=== PATIENT | male | born 1955 | race Caucasian/White ===

== ENCOUNTER 2016-09-12 18:02 | Emergency (ER) | payer OTHER ==
[2016-09-12] MEDS ORDERED: DILAUDID 2 MG INJECTION IM STA (18:29)
[2016-09-12] MEDS ORDERED: Phenergan 25 MG INJ IM ONE (18:30)
[2016-09-12] MEDS ORDERED: Phenergan 25 MG INJ ONE (18:36)
[2016-09-12] MEDS ORDERED: Hydromorphone 1 mg/ml Ampule ONE (18:36)
--- NOTE | 2016-09-12 18:36 | ERPHSYRPT ---
- History of Present Illness Time Seen by Provider: 09/12/16 18:25 Source: patient Exam Limitations: clinical condition Patient Subjective Stated Complaint: fell stepping off lawnmower onto asphalt striking right shoulder. Triage Nursing Assessment: ambulated to room per self. holding right arm. skin w/d, color normal. no obvious deformity noted to right shoulder. arm warm , normal color. 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 DENIES ASSOCIATED HEAD, NECK INJURY. Occurred: just prior to arrival Reason for Fall: tripped Injuries/Pain Location: upper extremity, back Loss of Consciousness: no loss of consciousness Quality: throbbing Severity of Pain-Max: severe Severity of Pain-Current: severe Modifying Factors: Improves With: movement Associated Symptoms (Fall): back pain, extremity injury Allergies/Adverse Reactions: nifedipine [From Procardia] Allergy (Verified 09/12/16 18:20) Swelling of Feet Home Medications: Amlodipine Besylate 5 mg [Norvasc 5 mg] 5 mg PO QAM 11/29/13 [History] Glimepiride 2 mg [Amaryl 2 MG] 2 mg PO QAM 11/29/13 [History] HydrALAzine HCL 25 MG TAB [Apresoline 25 MG TABLET] 25 mg PO DAILY [History] Omeprazole 20 MG [Prilosec 20 mg] 20 mg PO QAM 11/29/13 [History] Oxybutynin Chloride Xl 5 mg [Ditropan XL 5 MG] 5 mg PO DAILY 11/29/13 [ History] Alprazolam 0.25 mg [xanAX 0.25 MG] 0.5 mg PO DAILY 08/21/15 [History] Escitalopram Oxalate [Lexapro] 20 mg PO DAILY 08/21/15 [History] Lisinopril 20 mg [Zestril 20 MG] 20 mg PO DAILY 03/16/16 [History] Vitamin B Complex [Super B-50 Complex] 1 each PO DAILY 09/12/16 [History] Hx Tetanus, Diphtheria Vaccination/Date Given: Yes (2013) Hx Influenza Vaccination/Date Given: Yes Hx Pneumococcal Vaccination/Date Given: Yes - Review of Systems Constitutional: No Fever, No Chills Eyes: No Symptoms Ears, Nose, & Throat: No Symptoms Respiratory: No Cough, No Dyspnea Cardiac: No Chest Pain, No Edema, No Syncope Abdominal/Gastrointestinal: No Abdominal Pain, No Nausea, No Vomiting, No Diarrhea Genitourinary Symptoms: No Dysuria Musculoskeletal: Injury, Joint Pain, Joint Swelling, No Back Pain, No Neck Pain Skin: No Rash Neurological: No Symptoms, No Dizziness, No Focal Weakness, No Sensory Changes Psychological: No Symptoms Endocrine: No Symptoms All Other Systems: Reviewed and Negative - Past Medical History Pertinent Past Medical History: Yes Neurological History: No Pertinent History ENT History: Cataracts Cardiac History: Congestive Heart Failure, Coronary Artery Disease, Hypertension , Myocardial Infarction (NM) Respiratory History: Asthma, CHF, Pulmonary Embolism, Sleep Apnea Endocrine Medical History: Diabetes Type II Musculoskeletal History: No Pertinent History GI Medical History: GERD History: No Pertinent History Psycho-Social History: Anxiety, Depression Male Reproductive Disorders: No Pertinent History Other Medical History: BRADYCARDIA, states has not had cataract surgery - Past Surgical History Past Surgical History: Yes Neuro Surgical History: No Pertinent History Cardiac: Cardiac Catheterization Respiratory: No Pertinent History Gastrointestinal: Hernia Repair Genitourinary: No Pertinent History Musculoskeletal: Other Male Surgical History: No Pertinent History Other Surgical History: RT SHOULDER INJURY THAT CAUSES PT PAIN, left shoulder rotator cuff repair,ruptured,states 5 cardiac cath - Social History Smoking Status: Never smoker Exposure to second hand smoke: No Alcohol Use: None Drug Use: none Patient Lives Alone: No Significant Family History: cancer - Nursing Vital Signs Nursing Vital Signs: Initial Vital Signs Temperature 98 F Temperature Source Oral Pulse Rate 95 Respiratory Rate 18 Blood Pressure [Left Arm] 104/64 Pain Intensity 0 - Thermal Coma Score Best Eye Response (Thermal): (4) open spontaneously Best Verbal Response (Thermal): (5) oriented Best Motor Response (Saul): (6) obeys commands Thermal Total: 15 - Physical Exam General Appearance: no apparent distress, alert Head Injury: no evidence of injury Eye Exam: PERRL/EOMI ENT Exam: airway nml Neck Exam: supple, normal inspection, other (NONTENDER), No tenderness Respiratory/Chest Exam: normal breath sounds, No chest tenderness, No respiratory distress Cardiovascular Exam: normal heart sounds, regular rate/rhythm Gastrointestinal Exam: soft, No tenderness, No distention, No guarding, No ecchymosis Back Exam: normal inspection, point tenderness (T-4 TO T-10. NO ECCHYMOSIS OR SWELLING), No vertebral tenderness Extremity Exam: pelvis stable, pain with movement, swelling (RIGHT HUMERAL HEAD , MARKED LIMITED RANGE OF MOTION, NO CREPITUS OR ECCHYMOSIS, RIGHT RADIAL PULSE) , tenderness, No deformities Peripheral Pulses: carotid (R): 2+, carotid (L): 2+, femoral (R): 2+, femoral (L ): 2+, dorsalis-pedis (R): 2+, dorsalis-pedis (L): 2+ Neurologic Exam: alert, oriented x 3, cooperative, sensation nml, No motor deficits Skin Exam: normal color, warm, dry SpO2 Interpretation: normal SpO2: 95 - Radiology Exams Right Shoulder X-ray Interpretation: Interpreted by me, Negative, No Fracture (NO DISLOCATION) Right Humerus X-ray Interpretation: Interpreted by me, Negative, No Fracture - CT Exams Thoracic Spine CT Interpretation: Tele-radiologist Report (NO FRACTURE, OR TRAUMATIC DISLOCATION, DEGENERATIVE DISC DISEASE, WITH MILD CENTRA CANAL STENOSIS) Ordered Tests: Active Orders 24 hr Category Date Time Status Sling Application STAT Care 09/12/16 19:39 Ordered HUMERUS Stat Exams 09/12/16 18:34 Taken SHOULDER Stat Exams 09/12/16 18:33 Taken THORACIC SPINE W/O CONTRAST [CT] Stat Exams 09/12/16 18:35 Taken Medication Summary Discontinued Medications Generic Name Dose Route Start Last Admin Trade Name Freq PRN Reason Stop Dose Admin Hydromorphone HCl 2 mg 09/12/16 18:29 09/12/16 18:39 Dilaudid 2 Mg Injection IM 09/12/16 18:30 2 mg STAT STA Administration Hydromorphone HCl Confirm 09/12/16 18:36 Hydromorphone 1 Mg/Ml Ampule Administered 09/12/16 18:37 Dose 2 mg .ROUTE .STK-MED ONE Promethazine HCl 12.5 mg 09/12/16 18:30 09/12/16 18:39 Phenergan 25 Mg Inj IM 09/12/16 18:31 12.5 mg STAT ONE Administration Promethazine HCl Confirm 09/12/16 18:36 Phenergan 25 Mg Inj Administered 09/12/16 18:37 Dose 25 mg .ROUTE .STK-MED ONE - Progress Progress: improved Progress Note: 09/12/16 19:46 PATIENT GIVEN DILAUDID 2MG/PHENERGAN 12.5MG IM, PROVIDED WITH ARM SLING Counseled pt/family regarding: diagnosis, need for follow-up, rad results - Departure Time of Disposition: 20:00 Departure Disposition: Home Clinical Impression: CONTUSION/STRAIN RIGHT SHOULDER Condition: Stable Critical Care Time: No Additional Instructions: WEAR SHOULDER SLING FOR COMFORT FOR 5 DAYS THEN REMOVE. APPLY ICE OVER SHOULDER EVERY 4 HOURS, 30 MINUTES FOR 48 HOURS. NORCO 10/325 EVERY 4 HOURS NEEDED FOR PAIN. CONSULT YOUR FAMILY PHYSICIAN FOR EVALUATION IN 1 WEEK FOR FOLLOWUP. Prescriptions: Hydrocodone Bit/Acetaminophen [[place] 10-325 Tablet] 1 each PO Q4H PRN PRN #20 tablet PRN Reason: Pain
[2016-09-12 19:45] VITALS: O2SAT 95
[2016-09-12 19:58] VITALS: BP 110/62; PULSE 88
--- NOTE | 2016-09-13 08:46 | XRAY ---
Indication: Mid back pain following fall. Multiple contiguous images obtained through the thoracic spine. Sagittal and coronal reformatted images obtained. Comparison: None Axial images are negative for acute fracture, suspicious bony lesions, or spinal canal stenosis. There are multilevel flowing endplate osteophytes. Sagittal and coronal reformatted images demonstrates normal alignment. No acute compression fracture or subluxation. Visualized soft tissues demonstrates mild bilateral dependent atelectasis and right hilar calcified nodes. Impression: 1. Negative for acute fracture. 2. Multilevel degenerative flowing osteophytes. Comment: Preliminary interpretation was made by [facility]. No discrepancy. CT DI 133.72
--- NOTE | 2016-09-13 08:48 | XRAY ---
Indication: Pain following fall. Comparison: April 11, 2013. 3 views of the right shoulder remains intact with progressive worsening moderate AC degenerative hypertrophy and spurring. No new/acute bony, articular, or soft tissue abnormalities.
--- NOTE | 2016-09-13 08:50 | XRAY ---
Indication: Pain following fall. Comparison: None. 2 views of the right humerus demonstrates moderate AC degenerative hypertrophy/spurring and lateral epicondyle spurring. No other bony, articular, or soft tissue abnormalities.
== END 2016-09-12 20:06 | disposition home or self-care (01) ==
LOC: ED 18:02
DX: S40.011A Contusion of right shoulder, initial encounter (principal); S43.401A Unspecified sprain of right shoulder joint, initial encounter; W01.0XXA Fall on same level from slipping, tripping and stumbling without subsequent striking against object, initial encounter; Y93.H9 Activity, other involving exterior property and land maintenance, building and construction
CPT/HCPCS: 72128; 73030; 73060; 96372; 99284; J1170; J2550

== ENCOUNTER 2020-02-08 14:52 | Observation (INO) | payer MEDICARE ==
[2020-02-08] MEDS ORDERED: REMDESIVIR 200 MG in Sodium Chloride 0.9% 250 ML 250 ML IV ONE (16:30)
[2020-02-08 16:58] LABS: Hematocrit 46.3 % (42-50); Hemoglobin 15.2 gm/dl (12.5-18.0); Mean Cell Volume 92.2 fl (78-100); Mean Corpuscular Hemoglobin 30.3 pg (26-32); Mean Corpuscular Hgb Concent. 32.8 g/dl (32-36); Mean Platelet Volume 10.7 fl (7.5-11.0); Platelet Count 149 K/mm3 (150-450); Red Blood Count 5.02 M/mm3 (4.1-5.6); Red Cell Distribution Width 14.1 % (11.5-14.0); White Blood Count 4.6 K/mm3 (4.0-10.5)
[2020-02-08 17:27] LABS: Calcium 9.1 mg/dL (8.4-10.2); Creatinine 1 1.3 mg/dL (0.66-1.25); EST GLOMERULAR FILTRATION RATE 59.3 ML/MIN; Potassium 4.6 mmol/L (3.5-5.1)
[2020-02-08] MEDS: Decadron 4 MG INJ IV SCH (17:48)
[2020-02-08] MEDS: Zithromax 500 MG/ 250 ML NaCl Premix 500 MG/250 ML IVPB IV SCH (17:48)
[2020-02-08] MEDS: ENOXAPARIN SODIUM SQ SCH (18:12)
[2020-02-08] MEDS: Sodium Chloride 0.9% 1000 ML 1,000 ML IV SCH (18:23)
[2020-02-08] MEDS ORDERED: MOTRIN 600 MG PO PRN (19:44)
[2020-02-08] MEDS ORDERED: TYLENOL 325 MG PO PRN (19:49)
[2020-02-08 20:23] LABS: Appearance CLEAR (CLEAR); Bilirubin NEGATIVE (NEGATIVE); Blood NEGATIVE Ery/ul (0-5); Glucose NEGATIVE (NEGATIVE); Ketones NEGATIVE (NEGATIVE); Leukocyte Esterase NEGATIVE (NEGATIVE); Mucus SLIGHT /HPF (NEGATIVE); Nitrite NEGATIVE (NEGATIVE); Protein,Urine Dip NEGATIVE (Negative); Specific Gravity 1.013 (1.005-1.025); Urobilinogen NEGATIVE mg/dL (0-1)
[2020-02-08] MEDS: Singulair 10 MG PO SCH (21:26)
[2020-02-08] MEDS: Zestril 20 MG PO SCH (21:26)
[2020-02-08] MEDS: Ditropan XL 5 MG PO SCH (21:26)
[2020-02-08] MEDS: HUMALOG SQ PRN (21:26)
[2020-02-08] MEDS: Apresoline 25 MG TABLET PO SCH (21:28)
[2020-02-09] MEDS: ENOXAPARIN SODIUM SQ SCH ×2 (05:07→17:31)
[2020-02-09 05:11] LABS: Hematocrit 45.5 % (42-50); Hemoglobin 14.9 gm/dl (12.5-18.0); Mean Cell Volume 92.3 fl (78-100); Mean Corpuscular Hemoglobin 30.2 pg (26-32); Mean Corpuscular Hgb Concent. 32.7 g/dl (32-36); Mean Platelet Volume 10.6 fl (7.5-11.0); Platelet Count 143 K/mm3 (150-450); Red Blood Count 4.93 M/mm3 (4.1-5.6); Red Cell Distribution Width 14.1 % (11.5-14.0); White Blood Count 2.5 K/mm3 (4.0-10.5)
[2020-02-09] MEDS ORDERED: xanAX 0.25 MG PO PRN (07:15)
[2020-02-09] MEDS ORDERED: xanAX 0.5 MG PO PRN (07:19)
[2020-02-09] MEDS: Amaryl 2 MG PO SCH (08:36)
[2020-02-09] MEDS: HUMALOG SQ PRN ×4 (08:37→22:18)
--- NOTE | 2020-02-09 08:44 | PCM.HP ---
History of Present Illness - Chief Complaint Chief Complaint: SOB, + COVID Date: 02/09/20 History of Present Illness: is a 64 year old male. presented to respiratory clinic with 6 days of cough, sob, diarrhea. Pt. 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 - Review of Systems Constitutional: Fever, Chills Eyes: No Symptoms Ears, Nose, & Throat: No Symptoms Respiratory: Cough, Short Of Breath Cardiac: No Chest Pain, No Edema, No Syncope Abdominal/Gastrointestinal: Diarrhea, No Abdominal Pain, No Nausea, No Vomiting, No Hematochezia, No Melena Genitourinary Symptoms: No Dysuria Musculoskeletal: Arthralgias Skin: No Rash Neurological: No Dizziness, No Focal Weakness, No Sensory Changes Psychological: No Symptoms Endocrine: No Symptoms Hematologic/Lymphatic: No Symptoms Immunological/Allergic: No Symptoms Medications & Allergies Home Medications: Home Medication List Glimepiride 2 mg [Amaryl 2 MG] 2 mg PO QAM 11/29/13 [History Confirmed 02/08/20] HydrALAzine HCL 25 MG TAB [Apresoline 25 MG TABLET] 12.5 mg PO BID 11/29/13 [History Confirmed 02/08/20] Omeprazole 20 MG [Prilosec 20 mg] 20 mg PO QAM 11/29/13 [History Confirmed 02/08/20] Oxybutynin Chloride Xl 5 mg [Ditropan XL 5 MG] 5 mg PO BID 11/29/13 [History Confirmed 02/08/20] Alprazolam 0.25 mg [xanAX 0.25 MG] 0.5 mg PO DAILY PRN 08/21/15 [History Confirmed 02/08/20] Escitalopram Oxalate [Lexapro] 20 mg PO DAILY 08/21/15 [History Confirmed 02/08/20] Lisinopril 20 mg [Zestril 20 MG] 20 mg PO BID 03/16/16 [History Confirmed 02/08/20] Vitamin B Complex [Super B-50 Complex] 1 each PO DAILY 09/12/16 [History Confirmed 02/08/20] Montelukast Sodium 10 mg [Singulair 10 MG] 10 mg PO QPM 02/08/20 [History Confirmed 02/08/20] Allergies/Adverse Reactions: Allergies Allergy/AdvReac Type Severity Reaction Status Date / Time nifedipine [From Procardia] Allergy Swelling Verified 09/12/16 18:20 of Feet - Past Medical History Past Medical History: Yes Neurological History: Migraines, Peripheral Neuropathy ENT History: Cataracts Cardiac History: Other Respiratory History: Asthma, COPD, Sleep Apnea Endocrine Medical History: Diabetes Type II Musculoskelatal History: Osteoarthritis GI Medical History: GERD History: No Pertinent History Pyscho-Social History: Anxiety, Depression Male Reproductive Disorders: No Pertinent History Comment: HAS 3 CORONARY ARTERY BLOCKAGES WITH MEDS ONLY TO TX THUS FAR - Past Surgical History Past Surgical History: Yes Neuro Surgical History: No Pertinent History Cardiac History: Cardiac Catheterization Respiratory Surgery: No Pertinent History GI Surgical History: Hernia Repair Genitourinary Surgical Hx: No Pertinent History Musculskeletal Surgical Hx: Other Male Surgical History: No Pertinent History Other Surgical History: RT SHOULDER INJURY THAT CAUSES PT PAIN, left shoulder rotator cuff repair,ruptured,states 5 cardiac cath - Social History Smoking Status: Never smoker Exposure to second hand smoke: No Alcohol: None Drug Use: none Significant Family History: cancer - Physical Exam Vital Signs: Vital Signs - 24 hr Temp Pulse Resp BP Pulse Ox 02/09/20 08:05 96 02/09/20 08:00 97.4 F 56 L 15 137/69 97 02/09/20 07:00 13 02/09/20 06:00 61 16 96 02/09/20 05:00 13 02/09/20 04:00 97.5 F 53 L 16 134/83 98 02/09/20 03:00 21 02/09/20 02:00 53 L 21 97 02/09/20 01:00 19 02/09/20 00:00 97.6 F 57 L 19 108/61 95 02/08/20 23:00 19 02/08/20 22:00 74 18 95 02/08/20 21:00 20 02/08/20 20:00 101.4 F 82 15 130/87 94 L 02/08/20 19:00 16 02/08/20 18:00 101.6 F 82 14 141/75 96 02/08/20 17:00 14 02/08/20 16:45 101.7 F 81 12 153/74 97 02/08/20 16:15 99 02/08/20 16:05 93 L Oxygen-Last 24 hours Oxygen Flowrate (L/min)-RT 2 Oxygen Flowrate (L/min)-RT 2 Oxygen Flowrate (L/min)-RT 2 Oxygen Flowrate (L/min)-RT 2 Oxygen Flowrate (L/min)-RT 2 Oxygen Flowrate (L/min)-RT 2 Oxygen Flowrate (L/min)-RT 2 General Appearance: no apparent distress Neurologic Exam: alert, oriented x 3, cooperative Eye Exam: eyes nml inspection Ears, Nose, Throat Exam: normal ENT inspection Neck Exam: normal inspection, non-tender, supple, full range of motion, No meningismus Respiratory Exam: normal breath sounds, lungs clear, No chest tenderness Cardiovascular Exam: regular rate/rhythm, normal heart sounds, normal peripheral pulses Gastrointestinal/Abdomen Exam: soft, normal bowel sounds, No tenderness, No distention, No mass, No guarding Rectal Exam: deferred Back Exam: normal inspection Extremity Exam: normal inspection Skin Exam: normal color, warm, dry, No rash, No petechiae, No jaundice Results - Labs Lab/Micro Results: Lab Results-Last 24 Hours 02/08/20 02/08/20 02/08/20 Range/Units 16:48 16:48 16:48 WBC 4.6 (4.0-10.5) K/mm3 RBC 5.02 (4.1-5.6) M/mm3 Hgb 15.2 (12.5-18.0) gm/dl Hct 46.3 (42-50) % MCV 92.2 (78-100) fl MCH 30.3 (26-32) pg MCHC 32.8 (32-36) g/dl RDW 14.1 H (11.5-14.0) % Plt Count 149 L (150-450) K/mm3 MPV 10.7 (7.5-11.0) fl D-Dimer (215-500) ng/mL Sodium 133 L (137-145) mmol/L Potassium 4.6 (3.5-5.1) mmol/L Chloride 99 (98-107) mmol/L Carbon Dioxide 26 (22-30) mmol/L Anion Gap 12.0 (5-15) MEQ/L BUN 34 H (9-20) mg/dL Creatinine 1.30 H (0.66-1.25) mg/dL Estimated GFR 59.3 ML/MIN Glucose 131 H (74-106) mg/dL POC Glucometer (74 to 106) mg/dL Hemoglobin A1c 5.93 (4.5-6.0) % Calcium 9.1 (8.4-10.2) mg/dL Urine Color (YELLOW) Urine Appearance (CLEAR) Urine pH (5-6) Ur Specific [place] (1.005-1.025) Urine Protein (Negative) Urine Ketones (NEGATIVE) Urine Blood (0-5) Yousuf/ul Urine Nitrite (NEGATIVE) Urine Bilirubin (NEGATIVE) Urine Urobilinogen (0-1) mg/dL Ur Leukocyte Esterase (NEGATIVE) Urine WBC (Auto) (0-5) /HPF Urine RBC (Auto) (0-2) /HPF U Epithel Cells (Auto) (FEW) /HPF Urine Bacteria (Auto) (NEGATIVE) /HPF Urine Mucus (Auto) (NEGATIVE) /HPF Urine Culture Reflexed (NO) Urine Glucose (NEGATIVE) mg/dL 02/08/20 02/08/20 02/08/20 Range/Units 17:33 17:58 20:20 WBC (4.0-10.5) K/mm3 RBC (4.1-5.6) M/mm3 Hgb (12.5-18.0) gm/dl Hct (42-50) % MCV (78-100) fl MCH (26-32) pg MCHC (32-36) g/dl RDW (11.5-14.0) % Plt Count (150-450) K/mm3 MPV (7.5-11.0) fl D-Dimer 525 H* (215-500) ng/mL Sodium (137-145) mmol/L Potassium (3.5-5.1) mmol/L Chloride (98-107) mmol/L Carbon Dioxide (22-30) mmol/L Anion Gap (5-15) MEQ/L BUN (9-20) mg/dL Creatinine (0.66-1.25) mg/dL Estimated GFR ML/MIN Glucose (74-106) mg/dL POC Glucometer 115 H (74 to 106) mg/dL Hemoglobin A1c (4.5-6.0) % Calcium (8.4-10.2) mg/dL Urine Color YELLOW (YELLOW) Urine Appearance CLEAR (CLEAR) Urine pH 5.0 (5-6) Ur Specific [place] 1.013 (1.005-1.025) Urine Protein NEGATIVE (Negative) Urine Ketones NEGATIVE (NEGATIVE) Urine Blood NEGATIVE (0-5) Yousuf/ul Urine Nitrite NEGATIVE (NEGATIVE) Urine Bilirubin NEGATIVE (NEGATIVE) Urine Urobilinogen NEGATIVE (0-1) mg/dL Ur Leukocyte Esterase NEGATIVE (NEGATIVE) Urine WBC (Auto) NONE (0-5) /HPF Urine RBC (Auto) NONE (0-2) /HPF U Epithel Cells (Auto) NONE (FEW) /HPF Urine Bacteria (Auto) NONE (NEGATIVE) /HPF Urine Mucus (Auto) SLIGHT (NEGATIVE) /HPF Urine Culture Reflexed NO (NO) Urine Glucose NEGATIVE (NEGATIVE) mg/dL 02/08/20 02/09/20 Range/Units 21:17 04:45 WBC 2.5 L (4.0-10.5) K/mm3 RBC 4.93 (4.1-5.6) M/mm3 Hgb 14.9 (12.5-18.0) gm/dl Hct 45.5 (42-50) % MCV 92.3 (78-100) fl MCH 30.2 (26-32) pg MCHC 32.7 (32-36) g/dl RDW 14.1 H (11.5-14.0) % Plt Count 143 L (150-450) K/mm3 MPV 10.6 (7.5-11.0) fl D-Dimer (215-500) ng/mL Sodium (137-145) mmol/L Potassium (3.5-5.1) mmol/L Chloride (98-107) mmol/L Carbon Dioxide (22-30) mmol/L Anion Gap (5-15) MEQ/L BUN (9-20) mg/dL Creatinine (0.66-1.25) mg/dL Estimated GFR ML/MIN Glucose (74-106) mg/dL POC Glucometer 234 H (74 to 106) mg/dL Hemoglobin A1c (4.5-6.0) % Calcium (8.4-10.2) mg/dL Urine Color (YELLOW) Urine Appearance (CLEAR) Urine pH (5-6) Ur Specific [place] (1.005-1.025) Urine Protein (Negative) Urine Ketones (NEGATIVE) Urine Blood (0-5) Yousuf/ul Urine Nitrite (NEGATIVE) Urine Bilirubin (NEGATIVE) Urine Urobilinogen (0-1) mg/dL Ur Leukocyte Esterase (NEGATIVE) Urine WBC (Auto) (0-5) /HPF Urine RBC (Auto) (0-2) /HPF U Epithel Cells (Auto) (FEW) /HPF Urine Bacteria (Auto) (NEGATIVE) /HPF Urine Mucus (Auto) (NEGATIVE) /HPF Urine Culture Reflexed (NO) Urine Glucose (NEGATIVE) mg/dL - Radiology Impressions Radiology Exams & Impressions: Radiology Procedures Category Date Time Status CHEST 1 VIEW (PORTABLE) DAILY Exams 02/09/20 08:00 Taken CHEST 1 VIEW (PORTABLE) DAILY Exams 02/10/20 08:00 Ordered CHEST 1 VIEW (PORTABLE) DAILY Exams 02/11/20 08:00 Ordered - Other Procedures and Tests Respiratory Therapy 02/08/20 16:32 Incentive Spirometry UD Oxygen Nasal Cannula 2 lpm Assessment/Plan (1) SARS-associated coronavirus infection Current Visit: Yes Status: Acute Assessment & Plan: Pt. is now on full dose lovenox, remdesivir, and steroids- will continue these Code(s): B97.21 - SARS-ASSOCIATED CORONAVIRUS CAUSING DISEASES CLASSD ELSWHR (2) Pneumonia Current Visit: Yes Status: Acute Assessment & Plan: started on iv antibiotics rocephin and azithromycin, also low volume oxygen Code(s): J18.9 - PNEUMONIA, UNSPECIFIED ORGANISM (3) Type 2 diabetes mellitus Current Visit: No Status: Acute Assessment & Plan: continue home medications and moniter blood sugar with sliding scale insulin
--- NOTE | 2020-02-09 09:01 | XRAY ---
Indication: Short of breath. Positive Covid 19. Comparison: One day earlier. Portable chest unchanged again demonstrating subtle patchy left mid and lower lung infiltrate/atelectasis. Remaining heart and right lung unremarkable. No new cardiopulmonary abnormalities.
[2020-02-09] MEDS: Apresoline 25 MG TABLET PO SCH ×2 (09:48→21:34)
[2020-02-09] MEDS: Protonix 40MG Tablet PO SCH (09:49)
[2020-02-09] MEDS: Lexapro 10 MG PO SCH (09:49)
[2020-02-09] MEDS: Zestril 20 MG PO SCH ×2 (09:49→21:34)
[2020-02-09] MEDS: Ditropan XL 5 MG PO SCH ×2 (09:49→21:34)
[2020-02-09] MEDS: Decadron 4 MG INJ IV SCH (09:50)
[2020-02-09] MEDS: VITA-BEE WITH C PO SCH (09:51)
[2020-02-09] MEDS ORDERED: NON-FORMULARY ITEM (Omeprazole 20 Mg [Prilosec 20 Mg] 20 MG) PO SCH (10:00)
[2020-02-09] MEDS ORDERED: VITAMIN B COMPLEX PO SCH (10:00)
[2020-02-09] MEDS ORDERED: FLUZONE QUAD 2020-2021 SYRINGE IM ONE (10:00)
[2020-02-09 12:28] LABS: ANION GAP 9.8 MEQ/L (5-15); BLOOD UREA NITROGEN 32 mg/dL (9-20); CHLORIDE 101 mmol/L (98-107); Calcium 8.7 mg/dL (8.4-10.2); Carbon Dioxide 25 mmol/L (22-30); Creatinine 1 1.12 mg/dL (0.66-1.25); EST GLOMERULAR FILTRATION RATE > 60.0 ML/MIN; Glucose 246 mg/dL (74-106); Potassium 4.6 mmol/L (3.5-5.1); SODIUM 131 mmol/L (137-145)
[2020-02-09] MEDS: Sodium Chloride 0.9% 1000 ML 1,000 ML IV SCH (14:36)
[2020-02-09] MEDS: REMDESIVIR 100 MG in Sodium Chloride 0.9% 100 ML IVPB 100 ML IV SCH (16:40)
[2020-02-09] MEDS: ROCEPHIN 1 Gm-D5w 50 ml Bag** 1 G/50 ML IVPB IV SCH (17:47)
[2020-02-09] MEDS: Zithromax 500 MG/ 250 ML NaCl Premix 500 MG/250 ML IVPB IV SCH (18:51)
[2020-02-09] MEDS: Singulair 10 MG PO SCH (21:34)
[2020-02-10 04:58] LABS: Hematocrit 43.4 % (42-50); Hemoglobin 14.1 gm/dl (12.5-18.0); Mean Cell Volume 92.3 fl (78-100); Mean Corpuscular Hgb Concent. 32.5 g/dl (32-36); Mean Platelet Volume 11.2 fl (7.5-11.0); Platelet Count 151 K/mm3 (150-450); Red Cell Distribution Width 14.1 % (11.5-14.0); White Blood Count 7.4 K/mm3 (4.0-10.5)
[2020-02-10 05:17] LABS: INR 1.25 (0.8-3.0); PROTIME 14.1 SECONDS (8.83-12.87)
[2020-02-10 05:25] LABS: ALBUMIN 3.3 g/dL (3.5-5.0); ALKALINE PHOSPHATASE 46 U/L (38-126); ANION GAP 7.9 MEQ/L (5-15); BLOOD UREA NITROGEN 28 mg/dL (9-20); CHLORIDE 106 mmol/L (98-107); Calcium 8.6 mg/dL (8.4-10.2); Carbon Dioxide 26 mmol/L (22-30); Creatinine 1 0.92 mg/dL (0.66-1.25); EST GLOMERULAR FILTRATION RATE > 60.0 ML/MIN; Glucose 208 mg/dL (74-106); SGOT/AST 61 U/L (17-59); SGPT/ALT 32 U/L (0-50); SODIUM 135 mmol/L (137-145); Total Protein 6.1 g/dL (6.3-8.2)
[2020-02-10] MEDS: ENOXAPARIN SODIUM SQ SCH ×2 (05:48→19:46)
[2020-02-10] MEDS: HUMALOG SQ PRN ×2 (07:28→12:58)
[2020-02-10] MEDS: Ditropan XL 5 MG PO SCH (08:15)
[2020-02-10] MEDS: Amaryl 2 MG PO SCH (08:15)
[2020-02-10] MEDS: Protonix 40MG Tablet PO SCH (08:15)
[2020-02-10] MEDS: Lexapro 10 MG PO SCH (08:15)
--- NOTE | 2020-02-10 08:36 | XRAY ---
Indication: Short of breath. Positive Covid 19. Comparison: One day earlier Portable apical lordotic chest less inflated accentuating cardiopulmonary structures. Left costophrenic angle not included. Otherwise grossly stable patchy left mid to lower lung infiltrate/atelectasis. Remaining heart and right lung unremarkable.
[2020-02-10] MEDS: Apresoline 25 MG TABLET PO SCH (09:42)
[2020-02-10] MEDS: Zestril 20 MG PO SCH (09:42)
[2020-02-10] MEDS: Decadron 4 MG INJ IV SCH (09:42)
[2020-02-10] MEDS: ROCEPHIN 1 Gm-D5w 50 ml Bag** 1 G/50 ML IVPB IV SCH (09:43)
[2020-02-10] MEDS: VITA-BEE WITH C PO SCH (09:43)
[2020-02-10] MEDS: Sodium Chloride 0.9% 1000 ML 1,000 ML IV SCH (12:20)
[2020-02-10] MEDS: REMDESIVIR 100 MG in Sodium Chloride 0.9% 100 ML IVPB 100 ML IV SCH (16:35)
[2020-02-10 17:10] VITALS: BP 138/69
[2020-02-10 18:18] VITALS: PULSE 94; O2SAT 90
[2020-02-10] MEDS: Zithromax 500 MG/ 250 ML NaCl Premix 500 MG/250 ML IVPB IV SCH (19:47)
== END 2020-02-10 19:20 | disposition home or self-care (01) ==
LOC: MED SURG 15:35
PROVIDERS: ADMIT Family Medicine; ATTEND Family Medicine
DX: U07.1 COVID-19 (principal); J18.9 Pneumonia, unspecified organism; R19.7 Diarrhea, unspecified; G47.30 Sleep apnea, unspecified; E11.9 Type 2 diabetes mellitus without complications; J44.9 Chronic obstructive pulmonary disease, unspecified; Z79.899 Other long term (current) drug therapy
CPT/HCPCS: 36415; 71045; 80048; 80053; 81001; 82962; 83036; 85027; 85379; 85610; 93268; 94760; 94762; G0378; J0456; J0696; J1100; J1650; J1817; A9270-GY

== ENCOUNTER 2020-09-21 19:33 | Observation (INO) | payer MEDICARE ==
[2020-09-21 19:51] LABS: Absolute Neutrophil Ct (ANC) 5.84 (1.4-6.9); BASOPHIL % 0.4 % (0.0-0.4); Basophil (Absolute #) 0.04 (0-0.4); Eosinophil % 6.9 % (0.00-5.0); Eosinophil (Absolute #) 0.72 (0-0.5); Hematocrit 42.3 % (42-50); Hemoglobin 13.4 gm/dl (12.5-18.0); Lymphocyte (Absolute #) 2.78 (1.0-4.6); Lymphocytes % 26.7 % (24.0-44.0); Mean Corpuscular Hemoglobin 29.8 pg (26-32); Mean Corpuscular Hgb Concent. 31.7 g/dl (32-36); Mean Platelet Volume 9.7 fl (7.5-11.0); Monocyte (Absolute #) 1.02 (0.0-1.3); Monocytes % 9.8 % (0.0-12.0); Neutrophil % 56.2 % (36.0-66.0); Platelet Count 276 K/mm3 (150-450); Red Cell Distribution Width 13.7 % (11.5-14.0); White Blood Count 10.4 K/mm3 (4.0-10.5)
[2020-09-21 20:03] LABS: ALBUMIN 4.2 g/dL (3.5-5.0); ALKALINE PHOSPHATASE 69 U/L (38-126); BLOOD UREA NITROGEN 26 mg/dL (9-20); CHLORIDE 103 mmol/L (98-107); Calcium 9.8 mg/dL (8.4-10.2); Carbon Dioxide 29 mmol/L (22-30); Creatinine 1 1.17 mg/dL (0.66-1.25); EST GLOMERULAR FILTRATION RATE > 60.0 ML/MIN; Glucose 126 mg/dL (74-106); Potassium 4.3 mmol/L (3.5-5.1); SGOT/AST 51 U/L (17-59); SGPT/ALT 24 U/L (0-50); SODIUM 138 mmol/L (137-145); Total Protein 6.8 g/dL (6.3-8.2)
[2020-09-21 21:14] LABS: Appearance SLIGHTLY CLOUDY (CLEAR); Bilirubin NEGATIVE (NEGATIVE); Blood NEGATIVE Ery/ul (0-5); Glucose NEGATIVE (NEGATIVE); Ketones NEGATIVE (NEGATIVE); Leukocyte Esterase NEGATIVE (NEGATIVE); Nitrite NEGATIVE (NEGATIVE); Protein,Urine Dip NEGATIVE (Negative); Specific Gravity 1.018 (1.005-1.025); Urobilinogen NEGATIVE mg/dL (0-1); WBC 0-2 /HPF (0-5)
--- NOTE | 2020-09-21 21:17 | ERPHSYRPT ---
- History of Present Illness Time Seen by Provider: 09/21/20 19:55 Historian: patient Exam Limitations: no limitations Patient Subjective Stated Complaint: pt states that "I have been having chest pain for the past couple weeks. Today just got worse." Triage Nursing Assessment: pt ambulated into the er; pt is axo x4; c/o chest pain; pt states 7/10 pain to chest and left side of neck; pt states that he has had chest pain for the past couple weeks; pt states that he has appointment saturday with dance teacher; pt states that he was started on new cholesterol medication and thinks it is making him worse; pt states that he was on a heart monitor for 24 hours last week for possible placement of pacemaker; pt states he took 3 nitro prior to coming in with no relief; pt states that pain is radiating from chest to neck; pt states that he has more pressure than pain; apical pulse of 78, clear heart tone; no edema present; strong radial pulses and pedal pulses; clear lung sounds in all lobes; hypertensive; pt states he has pain to left leg; pt states that 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 Patient states he has been experiencing intermittent chest pain for approximately 2 weeks. Patient feels symptoms are getting worse. Patient states he had a cardiac cath approximately 1 week ago. Patient was advised that he has a small vessel that is about 70% occluded however it is not a candidate for stenting. Chest pain rated 7 out of 10 radiates to his left neck. Patient states he recently had a visit with his dance teacher. Patient was started on a new cholesterol medication. Patient feels a cholesterol may be worsening his symptoms. Patient had a rn cardiac last week. Patient is being worked up for bradycardia. Patient took 3 nitroglycerin sublingual prior to arrival. This helped the symptoms. Patient currently feels better. Patient advises he has a history of PE. Currently not anticoagulated. No active chest pain at this time. at bedside. They voiced no other complaints at this time. Timing/Duration: today Activities at Onset: none Quality: aching Location: substernal Chest Pain Radiation: neck Severity of Pain-Max: moderate Severity of Pain-Current: mild Associated Symptoms: shortness of breath Prior Chest Pain/Cardiac Workup: cardiac cath Nitro Today/Relief: 0.4 mg x 3 Aspirin Treatment Today: no aspirin today Allergies/Adverse Reactions: nifedipine [From Procardia] Allergy (Verified 09/21/20 19:47) Swelling of Feet Home Medications: Glimepiride 2 mg [Amaryl 2 MG] 2 mg PO QAM 11/29/13 [History] HydrALAzine HCL 25 MG TAB [Apresoline 25 MG TABLET] 12.5 mg PO BID 11/29/13 [History] Omeprazole 20 MG [Prilosec 20 mg] 20 mg PO QAM 11/29/13 [History] Oxybutynin Chloride Xl 5 mg [Ditropan XL 5 MG] 5 mg PO BID 11/29/13 [History] ALPRAZolam 0.25 MG [xanAX 0.25 MG] 0.5 mg PO DAILY PRN 08/21/15 [History] Escitalopram Oxalate [Lexapro] 20 mg PO DAILY 08/21/15 [History] Lisinopril 20 mg [Zestril 20 MG] 20 mg PO BID 03/16/16 [History] Vitamin B Complex [Super B-50 Complex] 1 each PO DAILY 09/12/16 [History] Montelukast Sodium 10 mg [Singulair 10 MG] 10 mg PO QPM 02/08/20 [History] Hx Tetanus, Diphtheria Vaccination/Date Given: Yes (2013) Hx Influenza Vaccination/Date Given: Yes Hx Pneumococcal Vaccination/Date Given: Yes Travel Risk - International Travel Have you traveled outside of the country in past 3 weeks: No - Coronavirus Screening Are you exhibiting any of the following symptoms?: No Close contact with a COVID-19 positive Pt in past 14-21 Days: No - Vaccine Status Have you recieved a Covid-19 vaccination: No - Review of Systems Constitutional: No Symptoms, No Fever, No Chills Eyes: No Symptoms Ears, Nose, & Throat: No Symptoms Respiratory: No Symptoms, No Cough, No Dyspnea Cardiac: No Symptoms, No Chest Pain, No Edema, No Syncope Abdominal/Gastrointestinal: No Symptoms, No Abdominal Pain, No Nausea, No Vomiting, No Diarrhea Genitourinary Symptoms: No Symptoms, No Dysuria Musculoskeletal: No Symptoms, No Back Pain, No Neck Pain Skin: No Symptoms, No Rash Neurological: No Symptoms, No Dizziness, No Focal Weakness, No Sensory Changes Psychological: No Symptoms Endocrine: No Symptoms Hematologic/Lymphatic: No Symptoms Immunological/Allergic: No Symptoms All Other Systems: Reviewed and Negative - Past Medical History Pertinent Past Medical History: Yes Neurological History: Peripheral Neuropathy ENT History: Cataracts Cardiac History: Coronary Artery Disease, Hypertension Respiratory History: Asthma, Bronchitis, COPD, Sleep Apnea Endocrine Medical History: Diabetes Type II Musculoskeletal History: Arthritis GI Medical History: GERD History: No Pertinent History Psycho-Social History: Anxiety, Depression Male Reproductive Disorders: No Pertinent History Other Medical History: HAS 3 CORONARY ARTERY BLOCKAGES WITH MEDS ONLY TO TX THUS FAR - Past Surgical History Past Surgical History: Yes Neuro Surgical History: No Pertinent History Cardiac: Cardiac Catheterization Respiratory: No Pertinent History Gastrointestinal: Hernia Repair Genitourinary: No Pertinent History Musculoskeletal: Other Male Surgical History: No Pertinent History Other Surgical History: RT SHOULDER INJURY THAT CAUSES PT PAIN, left shoulder rotator cuff repair,ruptured,states 5 cardiac cath - Social History Smoking Status: Never smoker Exposure to second hand smoke: No Alcohol Use: None Drug Use: none Patient Lives Alone: No Significant Family History: cancer - Nursing Vital Signs Nursing Vital Signs: Initial Vital Signs Temperature 98.6 F 09/21/20 19:48 Pulse Rate 78 09/21/20 19:48 Respiratory Rate 18 09/21/20 19:48 Blood Pressure 147/73 09/21/20 19:48 O2 Sat by Pulse Oximetry 97 09/21/20 19:48 Pain Scale Pain Intensity 4 - Physical Exam General Appearance: no apparent distress, alert, obese Eye Exam: PERRL/EOMI, eyes nml inspection Ears, Nose, Throat Exam: normal ENT inspection, moist mucous membranes Neck Exam: normal inspection, non-tender, supple, full range of motion Respiratory Exam: normal breath sounds, lungs clear, No respiratory distress Cardiovascular Exam: regular rate/rhythm, normal heart sounds Gastrointestinal/Abdomen Exam: soft, No tenderness, No mass Back Exam: normal inspection, No CVA tenderness, No vertebral tenderness Extremity Exam: normal inspection, normal range of motion Neurologic Exam: alert, oriented x 3, cooperative, normal mood/affect, sensation nml, No motor deficits Skin Exam: normal color, warm, dry SpO2 Interpretation: normal SpO2: 97 O2 Delivery: Room Air - Course Nursing assessment & vital signs reviewed: Yes EKG Interpreted by Me: RATE (87), Sinus Rhythm, NORMAL AXIS, NORMAL INTERVALS - Radiology Exams Chest X-ray Interpretation: Interpreted by me (Clear lung robles intact bony thorax. Normal cardiac silhouette. No acute process observed.) - CT Exams Chest CT Interpretation: Tele-radiologist Report (Stable severe calcified coronary artery disease. No pulmonary embolus or aortic dissection observed.) Ordered Tests: Active Orders 24 hr Category Date Time Status Typing Bookkeeper STAT Care 09/21/20 19:42 Active EKG-ER Only STAT Care 09/21/20 19:41 Active IV Insertion STAT Care 09/21/20 19:41 Active Pulse Oximetry (ED) STAT Care 09/21/20 19:41 Active CHEST 1 VIEW (PORTABLE) Stat Exams 09/21/20 19:42 Taken CHEST WITH CONTRAST [CT] Stat Exams 09/21/20 21:37 Taken CBC W DIFF Stat Lab 09/21/20 19:45 Completed CMP Stat Lab 09/21/20 19:45 Completed TROPONIN Q3H Lab 09/21/20 19:45 Completed TROPONIN Q3H Lab 09/21/20 22:50 Completed TROPONIN Q3H Lab 09/22/20 01:45 Ordered TROPONIN Q3H Lab 09/22/20 04:45 Ordered TROPONIN Q3H Lab 09/22/20 07:45 Ordered UA W/RFX UR CULTURE Stat Lab 09/21/20 20:26 Completed Transfer Order Routine Transfer 09/22/20 Ordered Medication Summary Discontinued Medications Generic Name Dose Route Start Last Admin Trade Name Freq PRN Reason Stop Dose Admin Aspirin 324 mg 09/22/20 01:14 Baby Aspirin 81 Mg Chew PO 09/22/20 01:15 STAT ONE Nitroglycerin 1 gm 09/22/20 01:15 Nitro-Bid 2% Ud Packets TOP 09/22/20 01:16 STAT ONE Lab/Rad Data: Laboratory Result Diagrams 09/21/20 19:45 09/21/20 19:45 Laboratory Results 09/22/20 09/21/20 09/21/20 Range/Units 00:18 22:50 20:26 WBC (4.0-10.5) K/mm3 RBC (4.1-5.6) M/mm3 Hgb (12.5-18.0) gm/dl Hct (42-50) % MCV (78-100) fl MCH (26-32) pg MCHC (32-36) g/dl RDW (11.5-14.0) % Plt Count (150-450) K/mm3 MPV (7.5-11.0) fl Gran % (36.0-66.0) % Eos # (Auto) (0-0.5) Absolute Lymphs (auto) (1.0-4.6) Absolute Monos (auto) (0.0-1.3) Lymphocytes % (24.0-44.0) % Monocytes % (0.0-12.0) % Eosinophils % (0.00-5.0) % Basophils % (0.0-0.4) % Absolute Granulocytes (1.4-6.9) Basophils # (0-0.4) Sodium (137-145) mmol/L Potassium (3.5-5.1) mmol/L Chloride (98-107) mmol/L Carbon Dioxide (22-30) mmol/L Anion Gap (5-15) MEQ/L BUN (9-20) mg/dL Creatinine (0.66-1.25) mg/dL Estimated GFR ML/MIN Glucose (74-106) mg/dL Calcium (8.4-10.2) mg/dL Total Bilirubin (0.2-1.3) mg/dL AST (17-59) U/L ALT (0-50) U/L Alkaline Phosphatase (38-126) U/L Troponin I < 0.012 (0.000-0.034) ng/mL Serum Total Protein (6.3-8.2) g/dL Albumin (3.5-5.0) g/dL Urine Color YELLOW (YELLOW) Urine Appearance SLIGHTLY CLOUDY (CLEAR) Urine pH 5.0 (5-6) Ur Specific [place] 1.018 (1.005-1.025) Urine Protein NEGATIVE (Negative) Urine Ketones NEGATIVE (NEGATIVE) Urine Blood NEGATIVE (0-5) Yousuf/ul Urine Nitrite NEGATIVE (NEGATIVE) Urine Bilirubin NEGATIVE (NEGATIVE) Urine Urobilinogen NEGATIVE (0-1) mg/dL Ur Leukocyte Esterase NEGATIVE (NEGATIVE) Urine WBC (Auto) 0-2 (0-5) /HPF Urine RBC (Auto) NONE (0-2) /HPF U Epithel Cells (Auto) NONE (FEW) /HPF Urine Bacteria (Auto) NONE (NEGATIVE) /HPF Urine Culture Reflexed NO (NO) Urine Glucose NEGATIVE (NEGATIVE) mg/dL Influenza Type A Ag NEGATIVE (NEGATIVE) Influenza Type B Ag NEGATIVE (NEGATIVE) RSV (PCR) NEGATIVE (Negative) SARS-CoV-2 (PCR) NEGATIVE (NEGATIVE) 09/21/20 09/21/20 09/21/20 Range/Units 19:45 19:45 19:45 WBC 10.4 (4.0-10.5) K/mm3 RBC 4.50 (4.1-5.6) M/mm3 Hgb 13.4 (12.5-18.0) gm/dl Hct 42.3 (42-50) % MCV 94.0 (78-100) fl MCH 29.8 (26-32) pg MCHC 31.7 L (32-36) g/dl RDW 13.7 (11.5-14.0) % Plt Count 276 (150-450) K/mm3 MPV 9.7 (7.5-11.0) fl Gran % 56.2 (36.0-66.0) % Eos # (Auto) 0.72 H (0-0.5) Absolute Lymphs (auto) 2.78 (1.0-4.6) Absolute Monos (auto) 1.02 (0.0-1.3) Lymphocytes % 26.7 (24.0-44.0) % Monocytes % 9.8 (0.0-12.0) % Eosinophils % 6.9 H (0.00-5.0) % Basophils % 0.4 (0.0-0.4) % Absolute Granulocytes 5.84 (1.4-6.9) Basophils # 0.04 (0-0.4) Sodium 138 (137-145) mmol/L Potassium 4.3 (3.5-5.1) mmol/L Chloride 103 (98-107) mmol/L Carbon Dioxide 29 (22-30) mmol/L Anion Gap 10.0 (5-15) MEQ/L BUN 26 H (9-20) mg/dL Creatinine 1.17 (0.66-1.25) mg/dL Estimated GFR > 60.0 ML/MIN Glucose 126 H (74-106) mg/dL Calcium 9.8 (8.4-10.2) mg/dL Total Bilirubin 0.30 (0.2-1.3) mg/dL AST 51 (17-59) U/L ALT 24 (0-50) U/L Alkaline Phosphatase 69 (38-126) U/L Troponin I < 0.012 (0.000-0.034) ng/mL Serum Total Protein 6.8 (6.3-8.2) g/dL Albumin 4.2 (3.5-5.0) g/dL Urine Color (YELLOW) Urine Appearance (CLEAR) Urine pH (5-6) Ur Specific [place] (1.005-1.025) Urine Protein (Negative) Urine Ketones (NEGATIVE) Urine Blood (0-5) Yousuf/ul Urine Nitrite (NEGATIVE) Urine Bilirubin (NEGATIVE) Urine Urobilinogen (0-1) mg/dL Ur Leukocyte Esterase (NEGATIVE) Urine WBC (Auto) (0-5) /HPF Urine RBC (Auto) (0-2) /HPF U Epithel Cells (Auto) (FEW) /HPF Urine Bacteria (Auto) (NEGATIVE) /HPF Urine Culture Reflexed (NO) Urine Glucose (NEGATIVE) mg/dL Influenza Type A Ag (NEGATIVE) Influenza Type B Ag (NEGATIVE) RSV (PCR) (Negative) SARS-CoV-2 (PCR) (NEGATIVE) - Progress Progress: improved Air Movement: good Progress Note: Case discussed with Dr. Enamorado who accepts admission to observation. Plan of care discussed with patient he agrees to admission [facility] for further evaluation and treatment. Covid test negative. Portions of this note were created with voice recognition technology. There may be grammatical, spelling, punctuation or sound alike errors 09/22/20 01:11 09/22/20 01:17 Nitropaste applied and aspirin administered. Blood Culture(s) Obtained: No Antibiotics given: No Discussed with : Phuc Will see patient in: hospital (observation) Counseled pt/family regarding: lab results, diagnosis, need for follow-up, rad results - Departure Departure Disposition: Observation Clinical Impression: ACS (acute coronary syndrome), Coronary atherosclerosis of [place] coronary vessel, Thoracic spondylosis Condition: Stable Critical Care Time: No Referrals: LINDY ENAMORADO MD [Primary Care Provider] -
[2020-09-22 01:01] LABS: INFLUENZA A NEGATIVE (NEGATIVE); INFLUENZA B NEGATIVE (NEGATIVE); RESPIRATORY SYNCTIAL VIRUS NEGATIVE (Negative)
[2020-09-22] MEDS ORDERED: BABY ASPIRIN 81 MG CHEW PO ONE (01:14)
[2020-09-22] MEDS ORDERED: NITRO-BID 2% UD PACKETS TOP ONE (01:15)
[2020-09-22] MEDS ORDERED: NITRO-BID 2% UD PACKETS ONE (01:27)
[2020-09-22] MEDS ORDERED: BABY ASPIRIN 81 MG CHEW ONE (01:27)
[2020-09-22] MEDS ORDERED: MILK OF MAGNESIA 30 ML PO PRN (01:56)
[2020-09-22] MEDS ORDERED: Senokot-S Tablet PO PRN (01:56)
[2020-09-22] MEDS ORDERED: MAALOX ES 30 ML UNIT DOSE PO PRN (01:56)
[2020-09-22] MEDS: TYLENOL 325 MG PO PRN ×2 (02:36→07:05)
[2020-09-22 05:47] LABS: Risk Ratio 4.4
--- NOTE | 2020-09-22 08:24 | PCM.SSS ---
History of Present Illness - Chief Complaint Chief Complaint: ACS History of Present Illness: is a 65 year old male who presented to the ER with chest pain, he has been having chest pain daily for weeks but was much worse last night and didn't respond to nitro but normally does, he reports he was cathed a few weeks ago by Dr Posadas and had blockage in a small artery that couldn't be stented, he continues to complain of squeezing pressure in his chest radiating to his neck with shortness of breath. no nausea, vomiting or diaphoresis. He has a previous history of PE but CTA chest was negative in ER. - Review of Systems Constitutional: No Fever, No Chills Respiratory: No Cough, No Short Of Breath Cardiac: Chest Pain Abdominal/Gastrointestinal: No Abdominal Pain, No Nausea, No Vomiting, No Diarrhea Skin: No Rash All Other Systems: Reviewed and Negative Medications & Allergies Home Medications: Home Medication List Glimepiride 2 mg [Amaryl 2 MG] 2 mg PO QAM 11/29/13 [History Confirmed 02/08/20] HydrALAzine HCL 25 MG TAB [Apresoline 25 MG TABLET] 12.5 mg PO BID 11/29/13 [History Confirmed 02/08/20] Omeprazole 20 MG [Prilosec 20 mg] 20 mg PO QAM 11/29/13 [History Confirmed 02/08/20] Oxybutynin Chloride Xl 5 mg [Ditropan XL 5 MG] 5 mg PO BID 11/29/13 [History Confirmed 02/08/20] ALPRAZolam 0.25 MG [xanAX 0.25 MG] 0.5 mg PO DAILY PRN 08/21/15 [History Confirmed 02/08/20] Escitalopram Oxalate [Lexapro] 20 mg PO DAILY 08/21/15 [History Confirmed 02/08/20] Lisinopril 20 mg [Zestril 20 MG] 20 mg PO BID 03/16/16 [History Confirmed 02/08/20] Vitamin B Complex [Super B-50 Complex] 1 each PO DAILY 09/12/16 [History Confirmed 02/08/20] Montelukast Sodium 10 mg [Singulair 10 MG] 10 mg PO QPM 02/08/20 [History Confirmed 02/08/20] Amoxicillin/Potassium Clav [Augmentin 875-125 Tablet] 1 tab PO BID 10 Days #20 tablet 02/10/20 [Rx] Azithromycin 500 mg PO UD #1 tablet 02/10/20 [Rx] Methylprednisolone Packet [Medrol Dosepack] 4 mg PO UD #1 packet 02/10/20 [Rx] Allergies/Adverse Reactions: Allergies Allergy/AdvReac Type Severity Reaction Status Date / Time nifedipine [From Procardia] Allergy Swelling Verified 09/21/20 19:47 of Feet - Past Medical History Past Medical History: Yes Neurological History: Peripheral Neuropathy ENT History: Cataracts Cardiac History: Coronary Artery Disease, Hypertension Respiratory History: Asthma, Bronchitis, COPD, Sleep Apnea Endocrine Medical History: Diabetes Type II Musculoskelatal History: Arthritis GI Medical History: GERD History: No Pertinent History Pyscho-Social History: Anxiety, Depression Male Reproductive Disorders: No Pertinent History Comment: HAS 3 CORONARY ARTERY BLOCKAGES WITH MEDS ONLY TO TX THUS FAR - Past Surgical History Past Surgical History: Yes Neuro Surgical History: No Pertinent History Cardiac History: Cardiac Catheterization Respiratory Surgery: No Pertinent History GI Surgical History: Hernia Repair Genitourinary Surgical Hx: No Pertinent History Musculskeletal Surgical Hx: Other Male Surgical History: No Pertinent History Other Surgical History: RT SHOULDER INJURY THAT CAUSES PT PAIN, left shoulder rotator cuff repair,ruptured,states 5 cardiac cath - Social History Smoking Status: Never smoker Exposure to second hand smoke: No Alcohol: None Drug Use: none Significant Family History: cancer - Physical Exam Vital Signs: Vital Signs - 24 hr Temp Pulse Pulse Resp BP Pulse Ox 09/22/20 07:42 97.6 F 55 L 16 109/55 95 09/22/20 03:45 61 18 93 L 09/22/20 02:08 97.5 F 65 18 146/75 96 09/22/20 01:39 66 131/74 96 09/22/20 01:17 97 09/22/20 00:00 56 L 127/79 95 09/21/20 23:15 66 16 137/74 96 09/21/20 22:46 74 24 117/64 97 09/21/20 21:59 65 18 101/52 97 09/21/20 21:22 70 21 101/52 98 09/21/20 19:48 98.6 F 73 78 18 147/73 97 General Appearance: no apparent distress, alert, obese Neurologic Exam: alert, oriented x 3, cooperative Respiratory Exam: normal breath sounds, lungs clear, No respiratory distress Cardiovascular Exam: regular rate/rhythm, normal heart sounds, normal peripheral pulses Gastrointestinal/Abdomen Exam: soft, normal bowel sounds, No tenderness, No mass Extremity Exam: normal inspection, normal range of motion, pelvis stable Skin Exam: normal color, warm, dry, No rash Results - Labs Lab/Micro Results: Lab Results-Last 24 Hours 09/21/20 09/21/20 09/21/20 Range/Units 19:45 19:45 19:45 WBC 10.4 (4.0-10.5) K/mm3 RBC 4.50 (4.1-5.6) M/mm3 Hgb 13.4 (12.5-18.0) gm/dl Hct 42.3 (42-50) % MCV 94.0 (78-100) fl MCH 29.8 (26-32) pg MCHC 31.7 L (32-36) g/dl RDW 13.7 (11.5-14.0) % Plt Count 276 (150-450) K/mm3 MPV 9.7 (7.5-11.0) fl Gran % 56.2 (36.0-66.0) % Eos # (Auto) 0.72 H (0-0.5) Absolute Lymphs (auto) 2.78 (1.0-4.6) Absolute Monos (auto) 1.02 (0.0-1.3) Lymphocytes % 26.7 (24.0-44.0) % Monocytes % 9.8 (0.0-12.0) % Eosinophils % 6.9 H (0.00-5.0) % Basophils % 0.4 (0.0-0.4) % Absolute Granulocytes 5.84 (1.4-6.9) Basophils # 0.04 (0-0.4) Sodium 138 (137-145) mmol/L Potassium 4.3 (3.5-5.1) mmol/L Chloride 103 (98-107) mmol/L Carbon Dioxide 29 (22-30) mmol/L Anion Gap 10.0 (5-15) MEQ/L BUN 26 H (9-20) mg/dL Creatinine 1.17 (0.66-1.25) mg/dL Estimated GFR > 60.0 ML/MIN Glucose 126 H (74-106) mg/dL POC Glucometer (74 to 106) mg/dL Calcium 9.8 (8.4-10.2) mg/dL Total Bilirubin 0.30 (0.2-1.3) mg/dL AST 51 (17-59) U/L ALT 24 (0-50) U/L Alkaline Phosphatase 69 (38-126) U/L Troponin I < 0.012 (0.000-0.034) ng/mL Serum Total Protein 6.8 (6.3-8.2) g/dL Albumin 4.2 (3.5-5.0) g/dL Triglycerides (30-150) mg/dL Cholesterol (50-200) mg/dL LDL Cholesterol (30-100) mg/dL HDL Cholesterol (40-60) mg/dL Heart Disease Risk Ratio Urine Color (YELLOW) Urine Appearance (CLEAR) Urine pH (5-6) Ur Specific [place] (1.005-1.025) Urine Protein (Negative) Urine Ketones (NEGATIVE) Urine Blood (0-5) Yousuf/ul Urine Nitrite (NEGATIVE) Urine Bilirubin (NEGATIVE) Urine Urobilinogen (0-1) mg/dL Ur Leukocyte Esterase (NEGATIVE) Urine WBC (Auto) (0-5) /HPF Urine RBC (Auto) (0-2) /HPF U Epithel Cells (Auto) (FEW) /HPF Urine Bacteria (Auto) (NEGATIVE) /HPF Urine Culture Reflexed (NO) Urine Glucose (NEGATIVE) mg/dL Influenza Type A Ag (NEGATIVE) Influenza Type B Ag (NEGATIVE) RSV (PCR) (Negative) SARS-CoV-2 (PCR) (NEGATIVE) 09/21/20 09/21/20 09/22/20 Range/Units 20:26 22:50 00:18 WBC (4.0-10.5) K/mm3 RBC (4.1-5.6) M/mm3 Hgb (12.5-18.0) gm/dl Hct (42-50) % MCV (78-100) fl MCH (26-32) pg MCHC (32-36) g/dl RDW (11.5-14.0) % Plt Count (150-450) K/mm3 MPV (7.5-11.0) fl Gran % (36.0-66.0) % Eos # (Auto) (0-0.5) Absolute Lymphs (auto) (1.0-4.6) Absolute Monos (auto) (0.0-1.3) Lymphocytes % (24.0-44.0) % Monocytes % (0.0-12.0) % Eosinophils % (0.00-5.0) % Basophils % (0.0-0.4) % Absolute Granulocytes (1.4-6.9) Basophils # (0-0.4) Sodium (137-145) mmol/L Potassium (3.5-5.1) mmol/L Chloride (98-107) mmol/L Carbon Dioxide (22-30) mmol/L Anion Gap (5-15) MEQ/L BUN (9-20) mg/dL Creatinine (0.66-1.25) mg/dL Estimated GFR ML/MIN Glucose (74-106) mg/dL POC Glucometer (74 to 106) mg/dL Calcium (8.4-10.2) mg/dL Total Bilirubin (0.2-1.3) mg/dL AST (17-59) U/L ALT (0-50) U/L Alkaline Phosphatase (38-126) U/L Troponin I < 0.012 (0.000-0.034) ng/mL Serum Total Protein (6.3-8.2) g/dL Albumin (3.5-5.0) g/dL Triglycerides (30-150) mg/dL Cholesterol (50-200) mg/dL LDL Cholesterol (30-100) mg/dL HDL Cholesterol (40-60) mg/dL Heart Disease Risk Ratio Urine Color YELLOW (YELLOW) Urine Appearance SLIGHTLY CLOUDY (CLEAR) Urine pH 5.0 (5-6) Ur Specific [place] 1.018 (1.005-1.025) Urine Protein NEGATIVE (Negative) Urine Ketones NEGATIVE (NEGATIVE) Urine Blood NEGATIVE (0-5) Yousuf/ul Urine Nitrite NEGATIVE (NEGATIVE) Urine Bilirubin NEGATIVE (NEGATIVE) Urine Urobilinogen NEGATIVE (0-1) mg/dL Ur Leukocyte Esterase NEGATIVE (NEGATIVE) Urine WBC (Auto) 0-2 (0-5) /HPF Urine RBC (Auto) NONE (0-2) /HPF U Epithel Cells (Auto) NONE (FEW) /HPF Urine Bacteria (Auto) NONE (NEGATIVE) /HPF Urine Culture Reflexed NO (NO) Urine Glucose NEGATIVE (NEGATIVE) mg/dL Influenza Type A Ag NEGATIVE (NEGATIVE) Influenza Type B Ag NEGATIVE (NEGATIVE) RSV (PCR) NEGATIVE (Negative) SARS-CoV-2 (PCR) NEGATIVE (NEGATIVE) 09/22/20 09/22/20 09/22/20 Range/Units 01:35 04:45 04:45 WBC (4.0-10.5) K/mm3 RBC (4.1-5.6) M/mm3 Hgb (12.5-18.0) gm/dl Hct (42-50) % MCV (78-100) fl MCH (26-32) pg MCHC (32-36) g/dl RDW (11.5-14.0) % Plt Count (150-450) K/mm3 MPV (7.5-11.0) fl Gran % (36.0-66.0) % Eos # (Auto) (0-0.5) Absolute Lymphs (auto) (1.0-4.6) Absolute Monos (auto) (0.0-1.3) Lymphocytes % (24.0-44.0) % Monocytes % (0.0-12.0) % Eosinophils % (0.00-5.0) % Basophils % (0.0-0.4) % Absolute Granulocytes (1.4-6.9) Basophils # (0-0.4) Sodium (137-145) mmol/L Potassium (3.5-5.1) mmol/L Chloride (98-107) mmol/L Carbon Dioxide (22-30) mmol/L Anion Gap (5-15) MEQ/L BUN (9-20) mg/dL Creatinine (0.66-1.25) mg/dL Estimated GFR ML/MIN Glucose (74-106) mg/dL POC Glucometer (74 to 106) mg/dL Calcium (8.4-10.2) mg/dL Total Bilirubin (0.2-1.3) mg/dL AST (17-59) U/L ALT (0-50) U/L Alkaline Phosphatase (38-126) U/L Troponin I < 0.012 < 0.012 (0.000-0.034) ng/mL Serum Total Protein (6.3-8.2) g/dL Albumin (3.5-5.0) g/dL Triglycerides 89 (30-150) mg/dL Cholesterol 140 (50-200) mg/dL LDL Cholesterol 103 H (30-100) mg/dL HDL Cholesterol 32 L (40-60) mg/dL Heart Disease Risk Ratio 4.4 Urine Color (YELLOW) Urine Appearance (CLEAR) Urine pH (5-6) Ur Specific [place] (1.005-1.025) Urine Protein (Negative) Urine Ketones (NEGATIVE) Urine Blood (0-5) Yousuf/ul Urine Nitrite (NEGATIVE) Urine Bilirubin (NEGATIVE) Urine Urobilinogen (0-1) mg/dL Ur Leukocyte Esterase (NEGATIVE) Urine WBC (Auto) (0-5) /HPF Urine RBC (Auto) (0-2) /HPF U Epithel Cells (Auto) (FEW) /HPF Urine Bacteria (Auto) (NEGATIVE) /HPF Urine Culture Reflexed (NO) Urine Glucose (NEGATIVE) mg/dL Influenza Type A Ag (NEGATIVE) Influenza Type B Ag (NEGATIVE) RSV (PCR) (Negative) SARS-CoV-2 (PCR) (NEGATIVE) 09/22/20 Range/Units 06:57 WBC (4.0-10.5) K/mm3 RBC (4.1-5.6) M/mm3 Hgb (12.5-18.0) gm/dl Hct (42-50) % MCV (78-100) fl MCH (26-32) pg MCHC (32-36) g/dl RDW (11.5-14.0) % Plt Count (150-450) K/mm3 MPV (7.5-11.0) fl Gran % (36.0-66.0) % Eos # (Auto) (0-0.5) Absolute Lymphs (auto) (1.0-4.6) Absolute Monos (auto) (0.0-1.3) Lymphocytes % (24.0-44.0) % Monocytes % (0.0-12.0) % Eosinophils % (0.00-5.0) % Basophils % (0.0-0.4) % Absolute Granulocytes (1.4-6.9) Basophils # (0-0.4) Sodium (137-145) mmol/L Potassium (3.5-5.1) mmol/L Chloride (98-107) mmol/L Carbon Dioxide (22-30) mmol/L Anion Gap (5-15) MEQ/L BUN (9-20) mg/dL Creatinine (0.66-1.25) mg/dL Estimated GFR ML/MIN Glucose (74-106) mg/dL POC Glucometer 135 H (74 to 106) mg/dL Calcium (8.4-10.2) mg/dL Total Bilirubin (0.2-1.3) mg/dL AST (17-59) U/L ALT (0-50) U/L Alkaline Phosphatase (38-126) U/L Troponin I (0.000-0.034) ng/mL Serum Total Protein (6.3-8.2) g/dL Albumin (3.5-5.0) g/dL Triglycerides (30-150) mg/dL Cholesterol (50-200) mg/dL LDL Cholesterol (30-100) mg/dL HDL Cholesterol (40-60) mg/dL Heart Disease Risk Ratio Urine Color (YELLOW) Urine Appearance (CLEAR) Urine pH (5-6) Ur Specific [place] (1.005-1.025) Urine Protein (Negative) Urine Ketones (NEGATIVE) Urine Blood (0-5) Yousuf/ul Urine Nitrite (NEGATIVE) Urine Bilirubin (NEGATIVE) Urine Urobilinogen (0-1) mg/dL Ur Leukocyte Esterase (NEGATIVE) Urine WBC (Auto) (0-5) /HPF Urine RBC (Auto) (0-2) /HPF U Epithel Cells (Auto) (FEW) /HPF Urine Bacteria (Auto) (NEGATIVE) /HPF Urine Culture Reflexed (NO) Urine Glucose (NEGATIVE) mg/dL Influenza Type A Ag (NEGATIVE) Influenza Type B Ag (NEGATIVE) RSV (PCR) (Negative) SARS-CoV-2 (PCR) (NEGATIVE) Accuchecks Date 09/22/20 - Radiology Impressions Radiology Exams & Impressions: Radiology Procedures Category Date Time Status CHEST 1 VIEW (PORTABLE) Stat Exams 09/21/20 19:42 Taken CHEST WITH CONTRAST [CT] Stat Exams 09/21/20 21:37 Taken - Other Procedures and Tests Respiratory Therapy 09/24/20 05:00 EKG DAILY 09/25/20 05:00 EKG DAILY 09/26/20 05:00 EKG DAILY Assessment/Plan (1) Chest pain, rule out acute myocardial infarction Current Visit: No Status: Acute Assessment & Plan: initial troponins are all negative, patient appears stable but continues to have pain. will consult providecte cardiology for further opinion Code(s): R07.9 - CHEST PAIN, UNSPECIFIED (2) Coronary artery disease Current Visit: No Status: Acute Qualifiers: Coronary Disease-Associated Artery/Lesion type: unspecified vessel or lesion type [place] vs. transplanted heart: [place] heart Associated angina: with stable angina Qualified Code(s): I25.119 - Atherosclerotic heart disease of [place] coronary artery with unspecified angina pectoris Code(s): I25.10 - ATHSCL HEART DISEASE OF [place] CORONARY ARTERY W/O ANG PCTRS (3) Morbid obesity with BMI of 50.0-59.9, adult Current Visit: No Status: Acute Code(s): Z68.43 - BODY MASS INDEX [BMI] 50.0-59.9, ADULT (4) Type 2 diabetes mellitus Current Visit: No Status: Acute Hospital Summary - Vitals & Intake/Output Vital Signs: Vital Signs Temperature 97.6 F 09/22/20 07:42 Pulse Rate 55 L 09/22/20 07:42 Respiratory Rate 16 09/22/20 07:42 Blood Pressure 109/55 09/22/20 07:42 O2 Sat by Pulse Oximetry 95 09/22/20 07:42 Intake & Output: Intake & Output 09/19/20 09/20/20 09/21/20 09/22/20 11:59 11:59 11:59 11:59 Intake Total 792 Balance 792 Weight 139.7 kg - Lab Result Diagrams: 09/21/20 19:45 09/21/20 19:45 Lab Results-Last 24 Hrs: Lab Results-Last 24 Hours 09/21/20 09/21/20 09/21/20 Range/Units 19:45 19:45 19:45 WBC 10.4 (4.0-10.5) K/mm3 RBC 4.50 (4.1-5.6) M/mm3 Hgb 13.4 (12.5-18.0) gm/dl Hct 42.3 (42-50) % MCV 94.0 (78-100) fl MCH 29.8 (26-32) pg MCHC 31.7 L (32-36) g/dl RDW 13.7 (11.5-14.0) % Plt Count 276 (150-450) K/mm3 MPV 9.7 (7.5-11.0) fl Gran % 56.2 (36.0-66.0) % Eos # (Auto) 0.72 H (0-0.5) Absolute Lymphs (auto) 2.78 (1.0-4.6) Absolute Monos (auto) 1.02 (0.0-1.3) Lymphocytes % 26.7 (24.0-44.0) % Monocytes % 9.8 (0.0-12.0) % Eosinophils % 6.9 H (0.00-5.0) % Basophils % 0.4 (0.0-0.4) % Absolute Granulocytes 5.84 (1.4-6.9) Basophils # 0.04 (0-0.4) Sodium 138 (137-145) mmol/L Potassium 4.3 (3.5-5.1) mmol/L Chloride 103 (98-107) mmol/L Carbon Dioxide 29 (22-30) mmol/L Anion Gap 10.0 (5-15) MEQ/L BUN 26 H (9-20) mg/dL Creatinine 1.17 (0.66-1.25) mg/dL Estimated GFR > 60.0 ML/MIN Glucose 126 H (74-106) mg/dL POC Glucometer (74 to 106) mg/dL Calcium 9.8 (8.4-10.2) mg/dL Total Bilirubin 0.30 (0.2-1.3) mg/dL AST 51 (17-59) U/L ALT 24 (0-50) U/L Alkaline Phosphatase 69 (38-126) U/L Troponin I < 0.012 (0.000-0.034) ng/mL Serum Total Protein 6.8 (6.3-8.2) g/dL Albumin 4.2 (3.5-5.0) g/dL Triglycerides (30-150) mg/dL Cholesterol (50-200) mg/dL LDL Cholesterol (30-100) mg/dL HDL Cholesterol (40-60) mg/dL Heart Disease Risk Ratio Urine Color (YELLOW) Urine Appearance (CLEAR) Urine pH (5-6) Ur Specific [place] (1.005-1.025) Urine Protein (Negative) Urine Ketones (NEGATIVE) Urine Blood (0-5) Yousuf/ul Urine Nitrite (NEGATIVE) Urine Bilirubin (NEGATIVE) Urine Urobilinogen (0-1) mg/dL Ur Leukocyte Esterase (NEGATIVE) Urine WBC (Auto) (0-5) /HPF Urine RBC (Auto) (0-2) /HPF U Epithel Cells (Auto) (FEW) /HPF Urine Bacteria (Auto) (NEGATIVE) /HPF Urine Culture Reflexed (NO) Urine Glucose (NEGATIVE) mg/dL Influenza Type A Ag (NEGATIVE) Influenza Type B Ag (NEGATIVE) RSV (PCR) (Negative) SARS-CoV-2 (PCR) (NEGATIVE) 09/21/20 09/21/20 09/22/20 Range/Units 20:26 22:50 00:18 WBC (4.0-10.5) K/mm3 RBC (4.1-5.6) M/mm3 Hgb (12.5-18.0) gm/dl Hct (42-50) % MCV (78-100) fl MCH (26-32) pg MCHC (32-36) g/dl RDW (11.5-14.0) % Plt Count (150-450) K/mm3 MPV (7.5-11.0) fl Gran % (36.0-66.0) % Eos # (Auto) (0-0.5) Absolute Lymphs (auto) (1.0-4.6) Absolute Monos (auto) (0.0-1.3) Lymphocytes % (24.0-44.0) % Monocytes % (0.0-12.0) % Eosinophils % (0.00-5.0) % Basophils % (0.0-0.4) % Absolute Granulocytes (1.4-6.9) Basophils # (0-0.4) Sodium (137-145) mmol/L Potassium (3.5-5.1) mmol/L Chloride (98-107) mmol/L Carbon Dioxide (22-30) mmol/L Anion Gap (5-15) MEQ/L BUN (9-20) mg/dL Creatinine (0.66-1.25) mg/dL Estimated GFR ML/MIN Glucose (74-106) mg/dL POC Glucometer (74 to 106) mg/dL Calcium (8.4-10.2) mg/dL Total Bilirubin (0.2-1.3) mg/dL AST (17-59) U/L ALT (0-50) U/L Alkaline Phosphatase (38-126) U/L Troponin I < 0.012 (0.000-0.034) ng/mL Serum Total Protein (6.3-8.2) g/dL Albumin (3.5-5.0) g/dL Triglycerides (30-150) mg/dL Cholesterol (50-200) mg/dL LDL Cholesterol (30-100) mg/dL HDL Cholesterol (40-60) mg/dL Heart Disease Risk Ratio Urine Color YELLOW (YELLOW) Urine Appearance SLIGHTLY CLOUDY (CLEAR) Urine pH 5.0 (5-6) Ur Specific [place] 1.018 (1.005-1.025) Urine Protein NEGATIVE (Negative) Urine Ketones NEGATIVE (NEGATIVE) Urine Blood NEGATIVE (0-5) Yousuf/ul Urine Nitrite NEGATIVE (NEGATIVE) Urine Bilirubin NEGATIVE (NEGATIVE) Urine Urobilinogen NEGATIVE (0-1) mg/dL Ur Leukocyte Esterase NEGATIVE (NEGATIVE) Urine WBC (Auto) 0-2 (0-5) /HPF Urine RBC (Auto) NONE (0-2) /HPF U Epithel Cells (Auto) NONE (FEW) /HPF Urine Bacteria (Auto) NONE (NEGATIVE) /HPF Urine Culture Reflexed NO (NO) Urine Glucose NEGATIVE (NEGATIVE) mg/dL Influenza Type A Ag NEGATIVE (NEGATIVE) Influenza Type B Ag NEGATIVE (NEGATIVE) RSV (PCR) NEGATIVE (Negative) SARS-CoV-2 (PCR) NEGATIVE (NEGATIVE) 09/22/20 09/22/20 09/22/20 Range/Units 01:35 04:45 04:45 WBC (4.0-10.5) K/mm3 RBC (4.1-5.6) M/mm3 Hgb (12.5-18.0) gm/dl Hct (42-50) % MCV (78-100) fl MCH (26-32) pg MCHC (32-36) g/dl RDW (11.5-14.0) % Plt Count (150-450) K/mm3 MPV (7.5-11.0) fl Gran % (36.0-66.0) % Eos # (Auto) (0-0.5) Absolute Lymphs (auto) (1.0-4.6) Absolute Monos (auto) (0.0-1.3) Lymphocytes % (24.0-44.0) % Monocytes % (0.0-12.0) % Eosinophils % (0.00-5.0) % Basophils % (0.0-0.4) % Absolute Granulocytes (1.4-6.9) Basophils # (0-0.4) Sodium (137-145) mmol/L Potassium (3.5-5.1) mmol/L Chloride (98-107) mmol/L Carbon Dioxide (22-30) mmol/L Anion Gap (5-15) MEQ/L BUN (9-20) mg/dL Creatinine (0.66-1.25) mg/dL Estimated GFR ML/MIN Glucose (74-106) mg/dL POC Glucometer (74 to 106) mg/dL Calcium (8.4-10.2) mg/dL Total Bilirubin (0.2-1.3) mg/dL AST (17-59) U/L ALT (0-50) U/L Alkaline Phosphatase (38-126) U/L Troponin I < 0.012 < 0.012 (0.000-0.034) ng/mL Serum Total Protein (6.3-8.2) g/dL Albumin (3.5-5.0) g/dL Triglycerides 89 (30-150) mg/dL Cholesterol 140 (50-200) mg/dL LDL Cholesterol 103 H (30-100) mg/dL HDL Cholesterol 32 L (40-60) mg/dL Heart Disease Risk Ratio 4.4 Urine Color (YELLOW) Urine Appearance (CLEAR) Urine pH (5-6) Ur Specific [place] (1.005-1.025) Urine Protein (Negative) Urine Ketones (NEGATIVE) Urine Blood (0-5) Yousuf/ul Urine Nitrite (NEGATIVE) Urine Bilirubin (NEGATIVE) Urine Urobilinogen (0-1) mg/dL Ur Leukocyte Esterase (NEGATIVE) Urine WBC (Auto) (0-5) /HPF Urine RBC (Auto) (0-2) /HPF U Epithel Cells (Auto) (FEW) /HPF Urine Bacteria (Auto) (NEGATIVE) /HPF Urine Culture Reflexed (NO) Urine Glucose (NEGATIVE) mg/dL Influenza Type A Ag (NEGATIVE) Influenza Type B Ag (NEGATIVE) RSV (PCR) (Negative) SARS-CoV-2 (PCR) (NEGATIVE) 09/22/20 Range/Units 06:57 WBC (4.0-10.5) K/mm3 RBC (4.1-5.6) M/mm3 Hgb (12.5-18.0) gm/dl Hct (42-50) % MCV (78-100) fl MCH (26-32) pg MCHC (32-36) g/dl RDW (11.5-14.0) % Plt Count (150-450) K/mm3 MPV (7.5-11.0) fl Gran % (36.0-66.0) % Eos # (Auto) (0-0.5) Absolute Lymphs (auto) (1.0-4.6) Absolute Monos (auto) (0.0-1.3) Lymphocytes % (24.0-44.0) % Monocytes % (0.0-12.0) % Eosinophils % (0.00-5.0) % Basophils % (0.0-0.4) % Absolute Granulocytes (1.4-6.9) Basophils # (0-0.4) Sodium (137-145) mmol/L Potassium (3.5-5.1) mmol/L Chloride (98-107) mmol/L Carbon Dioxide (22-30) mmol/L Anion Gap (5-15) MEQ/L BUN (9-20) mg/dL Creatinine (0.66-1.25) mg/dL Estimated GFR ML/MIN Glucose (74-106) mg/dL POC Glucometer 135 H (74 to 106) mg/dL Calcium (8.4-10.2) mg/dL Total Bilirubin (0.2-1.3) mg/dL AST (17-59) U/L ALT (0-50) U/L Alkaline Phosphatase (38-126) U/L Troponin I (0.000-0.034) ng/mL Serum Total Protein (6.3-8.2) g/dL Albumin (3.5-5.0) g/dL Triglycerides (30-150) mg/dL Cholesterol (50-200) mg/dL LDL Cholesterol (30-100) mg/dL HDL Cholesterol (40-60) mg/dL Heart Disease Risk Ratio Urine Color (YELLOW) Urine Appearance (CLEAR) Urine pH (5-6) Ur Specific [place] (1.005-1.025) Urine Protein (Negative) Urine Ketones (NEGATIVE) Urine Blood (0-5) Yousuf/ul Urine Nitrite (NEGATIVE) Urine Bilirubin (NEGATIVE) Urine Urobilinogen (0-1) mg/dL Ur Leukocyte Esterase (NEGATIVE) Urine WBC (Auto) (0-5) /HPF Urine RBC (Auto) (0-2) /HPF U Epithel Cells (Auto) (FEW) /HPF Urine Bacteria (Auto) (NEGATIVE) /HPF Urine Culture Reflexed (NO) Urine Glucose (NEGATIVE) mg/dL Influenza Type A Ag (NEGATIVE) Influenza Type B Ag (NEGATIVE) RSV (PCR) (Negative) SARS-CoV-2 (PCR) (NEGATIVE) Micro Results-Entire Visit: Accuchecks Date 09/22/20 - Radiology Exams Ordered Rad Exams-Entire Visit: Radiology Procedures Category Date Time Status CHEST 1 VIEW (PORTABLE) Stat Exams 09/21/20 19:42 Taken CHEST WITH CONTRAST [CT] Stat Exams 09/21/20 21:37 Taken - Procedures and Test Procedures and Tests throughout Hospitalization: Therapy Orders & Screens 09/22/20 01:56 EKG [id number],QAMX3,PRN Comment: 09/22/20 02:29 RT Screen per Nursing Assess ONCE Comment: Protocol Order Physician Instructions: Greater than 3 points order RT Admission Screen Reason For Exam: Triggered on Admission Diagnosis: ACS Diagnosis: ACS Pneumonia: No Home O2: No Asthma: No CHF: No Home CPAP/BIPAP: Yes Home Nebs/MDI: Yes Total Points: 10 09/22/20 03:18 Respiratory Therapy Assessment DAILY Comment: Diagnosis: ACS 09/22/20 03:41 EKG ROUTINE Comment: Diagnosis: ACS 09/24/20 05:00 EKG DAILY Comment: Diagnosis: ACS 09/25/20 05:00 EKG DAILY Comment: Diagnosis: ACS 09/26/20 05:00 EKG DAILY Comment: Diagnosis: ACS - Discharge Disposition: Home, Self-Care Condition: Stable Prescriptions: Continue Glimepiride 2 mg [Amaryl 2 MG] 2 mg PO QAM Oxybutynin Chloride Xl 5 mg [Ditropan XL 5 MG] 5 mg PO BID HydrALAzine HCL 25 MG TAB [Apresoline 25 MG TABLET] 12.5 mg PO BID Omeprazole 20 MG [Prilosec 20 mg] 20 mg PO QAM Escitalopram Oxalate [Lexapro] 20 mg PO DAILY ALPRAZolam 0.25 MG [xanAX 0.25 MG] 0.5 mg PO DAILY PRN PRN Reason: Anxiety Lisinopril 20 mg [Zestril 20 MG] 20 mg PO BID Vitamin B Complex [Super B-50 Complex] 1 each PO DAILY Montelukast Sodium 10 mg [Singulair 10 MG] 10 mg PO QPM Amoxicillin/Potassium Clav [Augmentin 875-125 Tablet] 1 tab PO BID 10 Days #20 tablet Azithromycin 500 mg PO UD #1 tablet Methylprednisolone Packet [Medrol Dosepack] 4 mg PO UD #1 packet Follow up with: LINDY ENAMORADO MD [Primary Care Provider] -
--- NOTE | 2020-09-22 08:46 | XRAY ---
Indication: Chest pain. Comparison: September 08, 2020. Portable chest remains clear. Heart not enlarged. Bony thorax intact again with mild degenerative changes. No new/acute findings.
--- NOTE | 2020-09-22 08:46 | XRAY ---
Indication: Chest pain and heaviness. History of COPD and pulmonary embolus. Multiple contiguous axial images obtained through the chest using 80 cc Isovue 370 contrast and PE protocol. Comparison: August 22, 2015. There is good opacification of the pulmonary arteries to include the lobar and segmental branches. No pulmonary embolus. Heart is not enlarged again with scattered coronary calcifications. Aorta is normal in course and caliber. Again a few tiny right hilar calcified nodes. No pathologic mediastinal/hilar lymphadenopathy. New small hiatal hernia. Lungs again demonstrates minimal bilateral dependent atelectasis and lingular fibrosis/scarring. No suspicious pulmonary mass, infiltrate, or effusion. Bony thorax intact again with flowing osteophytes throughout the spine. Limited upper abdomen again demonstrates fatty liver. Spleen is enlarged measuring 14 cm. Impression: 1. Continued negative pulmonary embolus. No new/acute cardiopulmonary abnormalities. 2. Incidental scattered atelectasis/scarring, small hiatal hernia, fatty liver, splenomegaly, and chronic bony findings. Comment: Preliminary interpretation was made by [facility]. No critical discrepancy.
[2020-09-22] MEDS ORDERED: MOTRIN 600 MG PO ONE (11:00)
[2020-09-22] MEDS ORDERED: xanAX 0.25 MG PO PRN (11:47)
[2020-09-22] MEDS ORDERED: xanAX 0.5 MG PO PRN (11:55)
[2020-09-22] MEDS ORDERED: Sodium Chloride 0.9% 10 ML FLUSH Syringe IV SCH (14:00)
--- NOTE | 2020-09-22 15:50 | PCM.DCORD ---
- Discharge Disposition: Home, Self-Care Condition: Stable Prescriptions: New Isosorbide Mononitrate 30 mg [Imdur 30 MG] 30 mg PO DAILY #30 tab Continue Glimepiride 2 mg [Amaryl 2 MG] 4 mg PO QAM Oxybutynin Chloride Xl 5 mg [Ditropan XL 5 MG] 5 mg PO BID Omeprazole 20 MG [Prilosec 20 mg] 20 mg PO QAM Escitalopram Oxalate [Lexapro] 20 mg PO DAILY ALPRAZolam 0.25 MG [xanAX 0.25 MG] 0.5 mg PO DAILY PRN PRN Reason: Anxiety Vitamin B Complex [Super B-50 Complex] 1 each PO DAILY Montelukast Sodium 10 mg [Singulair 10 MG] 10 mg PO QPM Multivit-Min/FA/Lycopen/Lutein [Men 50 Plus Multivitamin Tab] 1 each PO DAILY Cholecalciferol (Vitamin D3) [Vitamin D] 1,000 unit PO DAILY Ezetimibe 10 mg [Zetia 10 MG] 10 mg PO DAILY Amlodipine Besylate 5 mg [Norvasc 5 mg] 2.5 mg PO DAILY Lisinopril/Hydrochlorothiazide [Lisinopril-Hctz 20-12.5 mg Tab] 1 each PO BID Additional Instructions: see Dr Posadas tomorrow as scheduled Follow up with: LINDY ENAMORADO MD [Primary Care Provider] - 09/30/20 1:15 pm
[2020-09-22 16:35] VITALS: BP 143/65; PULSE 61; O2SAT 95
[2020-09-22] MEDS ORDERED: NON-FORMULARY ITEM (Lisinopril/Hydrochlorothiazide [Lisinopril-Hctz 20-12.5 Mg Tab] 1 EACH PO SCH (22:00)
[2020-09-22] MEDS ORDERED: Ditropan XL 5 MG PO SCH (22:00)
[2020-09-22] MEDS ORDERED: Zestril 20 MG PO SCH (22:00)
[2020-09-22] MEDS ORDERED: hydroDIURIL 25 MG PO SCH (22:00)
[2020-09-23] MEDS ORDERED: NORVASC 5 MG PO SCH (10:00)
[2020-09-23] MEDS ORDERED: NON-FORMULARY ITEM (Omeprazole 20 Mg [Prilosec 20 Mg] 20 MG) PO SCH (10:00)
[2020-09-23] MEDS ORDERED: Amaryl 2 MG PO SCH (10:00)
[2020-09-23] MEDS ORDERED: Lexapro 10 MG PO SCH (10:00)
[2020-09-23] MEDS ORDERED: Zetia 10 MG PO SCH (10:00)
[2020-09-23] MEDS ORDERED: Protonix 40MG Tablet PO SCH (10:00)
== END 2020-09-22 17:38 | disposition home or self-care (01) ==
LOC: ED 19:33 → MED SURG 09-22 01:41
PROVIDERS: ADMIT Family Medicine; ATTEND Family Medicine
DX: R07.9 Chest pain, unspecified (principal); I10 Essential (primary) hypertension; Z86.711 Personal history of pulmonary embolism; Z79.899 Other long term (current) drug therapy; E11.9 Type 2 diabetes mellitus without complications; J44.9 Chronic obstructive pulmonary disease, unspecified; G47.30 Sleep apnea, unspecified; I25.10 Atherosclerotic heart disease of native coronary artery without angina pectoris; Z68.43 Body mass index [BMI] 50.0-59.9, adult; Z20.828 Contact with and (suspected) exposure to other viral communicable diseases
CPT/HCPCS: 0241U; 36000; 36415; 71045; 71260; 80053; 80061; 81001; 82947; 83721; 84484; 85025; 93005; 93041; 93268; 94760; 99285; G0378; A9270-GY

== ENCOUNTER 2021-11-13 16:02 | Emergency (ER) | payer MEDICARE ==
[2021-11-13 16:15] VITALS: O2SAT 96
--- NOTE | 2021-11-13 16:36 | ERPHSYRPT ---
- History of Present Illness Source: patient Exam Limitations: no limitations Patient Subjective Stated Complaint: PT TO ER WITH COMPLAINTS OF COUGH, FEVER, CONGESTION, BODY ACHES, DIARRHEA, LEG CRAMPS. PT STATES IT STARTED A WEEK AGO. Triage Nursing Assessment: PT AMBULATORY. SKIN PWD. PT APPEARS TO BE SHORT OF BREATH. PT A&OX4. Physician History: 66 yo wm w h/o DM/HTN/CAD/IA/Hyperlipidemia/COPD/ALEXANDER presents w N/D/Fever/cough/abdominal cramping/ST/Mild dyspnea/myalgias x2days. Pt denies chest pain. Timing/Duration: other (2 days) Cough Quality/Degree: dry cough Possible Cause: no prior episodes Modifying Factors: Improves With: coughing Associated Symptoms: fever, chills, cough, muscle aches, nasal congestion, nasal drainage, shortness of breath, sore throat, No chest pain/soreness, No dizziness, No earache, No facial pain, No lightheadedness, No sinus infection, No wheezing Allergies/Adverse Reactions: nifedipine [From Procardia] Allergy (Verified 11/13/21 16:15) Swelling of Feet Home Medications: Glimepiride 2 mg [Amaryl 2 MG] 4 mg PO QAM 11/29/13 [History] Omeprazole 20 MG [Prilosec 20 mg] 20 mg PO QAM 11/29/13 [History] ALPRAZolam 0.25 MG [xanAX 0.25 MG] 0.5 mg PO DAILY PRN 08/21/15 [History] Vitamin B Complex [Super B-50 Complex] 1 each PO DAILY 09/12/16 [History] Montelukast Sodium 10 mg [Singulair 10 MG] 10 mg PO QPM 02/08/20 [History] Cholecalciferol (Vitamin D3) [Vitamin D] 1,000 unit PO DAILY 09/22/20 [History] Ezetimibe 10 mg [Zetia 10 MG] 10 mg PO DAILY 09/22/20 [History] Lisinopril/Hydrochlorothiazide [Lisinopril-Hctz 20-12.5 mg Tab] 1 each PO BID 09/22/20 [History] Multivit-Min/FA/Lycopen/Lutein [Men 50 Plus Multivitamin Tab] 1 each PO DAILY 09/22/20 [History] Empagliflozin [Jardiance] 25 mg PO DAILY 11/13/21 [History] Semaglutide [Ozempic] 0.5 mg SQ WEEKLY 11/13/21 [History] Hx Tetanus, Diphtheria Vaccination/Date Given: Yes (2013) Hx Influenza Vaccination/Date Given: Yes Hx Pneumococcal Vaccination/Date Given: Yes Travel Risk - International Travel Have you traveled outside of the country in past 3 weeks: No - Coronavirus Screening Are you exhibiting any of the following symptoms?: Yes Symptoms: Fever, Cough: New Onset, Shortness of Breath, Vomiting/Diarrhea, Headaches/Body Aches/Fatigue Close contact with a COVID-19 positive Pt in past 14-21 Days: No - Vaccine Status Have you recieved a Covid-19 vaccination: No - Review of Systems Constitutional: No Symptoms, Fever, Chills, Fatigue Eyes: No Symptoms Ears, Nose, & Throat: No Symptoms, Nose Pain, Nose Congestion, Throat Pain Respiratory: No Symptoms, Cough, Dyspnea Cardiac: No Symptoms Abdominal/Gastrointestinal: Abdominal Pain (Mild diffuse cramping), Nausea, Diarrhea, No Vomiting Genitourinary Symptoms: No Symptoms Musculoskeletal: No Symptoms, Myalgias Skin: No Symptoms Neurological: No Symptoms Psychological: No Symptoms Endocrine: No Symptoms Hematologic/Lymphatic: No Symptoms - Past Medical History Pertinent Past Medical History: Yes Neurological History: Peripheral Neuropathy ENT History: Cataracts Cardiac History: Coronary Artery Disease, Hypertension Respiratory History: Asthma, Bronchitis, COPD, Sleep Apnea Endocrine Medical History: Diabetes Type II Musculoskeletal History: Arthritis GI Medical History: GERD History: No Pertinent History Psycho-Social History: Anxiety, Depression Male Reproductive Disorders: No Pertinent History Other Medical History: HAS 3 CORONARY ARTERY BLOCKAGES WITH MEDS ONLY TO TX THUS FAR - Past Surgical History Past Surgical History: Yes Neuro Surgical History: No Pertinent History Cardiac: Cardiac Catheterization Respiratory: No Pertinent History Gastrointestinal: Hernia Repair Genitourinary: No Pertinent History Musculoskeletal: Other Male Surgical History: No Pertinent History Other Surgical History: RT SHOULDER INJURY THAT CAUSES PT PAIN, left shoulder rotator cuff repair,ruptured,states 5 cardiac cath - Social History Smoking Status: Never smoker Exposure to second hand smoke: No Alcohol Use: None Drug Use: none Patient Lives Alone: No Significant Family History: cancer - Nursing Vital Signs Nursing Vital Signs: Initial Vital Signs Temperature 98.3 F 07/18/22 16:09 Pulse Rate 103 H 11/13/21 16:09 Respiratory Rate 22 11/13/21 16:09 Blood Pressure 144/77 11/13/21 16:09 O2 Sat by Pulse Oximetry 95 11/13/21 16:09 Pain Scale Pain Intensity 4 Tachy/hypertensive/Tachypneic - Physical Exam General Appearance: no apparent distress Eye Exam: PERRL/EOMI, eyes nml inspection Ears, Nose, Throat Exam: normal ENT inspection, TMs normal, pharynx normal, moist mucous membranes Neck Exam: normal inspection, non-tender, supple, full range of motion, No meningismus, No mass, No Brudzinski, No Kernig's, No carotid bruit Respiratory Exam: normal breath sounds, lungs clear, airway intact, No respiratory distress Cardiovascular Exam: tachycardia (Mildly), capillary refill <2 sec, No murmur Gastrointestinal/Abdomen Exam: soft, normal bowel sounds, tenderness (Mild diffuse wo guarding or rebound) Back Exam: normal inspection, normal range of motion, No CVA tenderness, No vertebral tenderness, No rash, No decreased range of motion Extremity Exam: normal inspection, normal range of motion Neurologic Exam: alert, oriented x 3, cooperative, edger operator II-XII nml as tested, normal mood/affect, sensation nml, No motor deficits, No sensory deficit Skin Exam: normal color, warm, dry, No rash Lymphatic Exam: No adenopathy SpO2 Interpretation: normal SpO2: 96 O2 Delivery: Room Air - Course Nursing assessment & vital signs reviewed: Yes EKG Interpreted by Me: RATE (LBBB/R93/Prolonged QTc/Flat Twaves V5-V6) - Radiology Exams Chest X-ray Interpretation: Discussed w/ radiologist (CXR-NAD) Ordered Tests: Active Orders 24 hr Category Date Time Status EKG-ER Only STAT Care 11/13/21 16:30 Completed IV Insertion STAT Care 11/13/21 16:30 Completed CHEST 1 VIEW (PORTABLE) Stat Exams 11/13/21 17:14 Completed CBC W DIFF Stat Lab 11/13/21 17:00 Completed CMP Stat Lab 11/13/21 17:00 Completed Lactic Acid Stat Lab 11/13/21 17:00 Completed NT PRO BNP Stat Lab 11/13/21 17:00 Completed TROPONIN Q3H Lab 11/13/21 17:00 Completed Lab/Rad Data: Laboratory Result Diagrams 11/13/21 17:00 11/13/21 17:00 Laboratory Results 11/13/21 11/13/21 11/13/21 Range/Units Unknown 17:00 17:00 WBC (4.0-10.5) x10^3/uL RBC (4.1-5.6) x10^6/uL Hgb (12.5-18.0) g/dL Hct (42-50) % MCV (78-100) fL MCH (26-32) pg MCHC (32-36) g/dL RDW (11.5-14.0) % Plt Count (150-450) x10^3/uL MPV (7.5-11.0) fL Gran % (36.0-66.0) % Immature Gran % (Auto) (0.00-0.4) % Nucleat RBC Rel Count (0.00-0.1) % Eos # (Auto) (0-0.5) x10^3/uL Immature Gran # (Auto) (0.00-0.03) x10^3u/L Absolute Lymphs (auto) (1.0-4.6) x10^3/uL Absolute Monos (auto) (0.0-1.3) x10^3/uL Absolute Nucleated RBC (0.00-0.01) x10^3u/L Lymphocytes % (24.0-44.0) % Monocytes % (0.0-12.0) % Eosinophils % (0.00-5.0) % Basophils % (0.0-0.4) % Absolute Granulocytes (1.4-6.9) x10^3/uL Basophils # (0-0.4) x10^3/uL Sodium 133 L (137-145) mmol/L Potassium 4.4 (3.5-5.1) mmol/L Chloride 103 (98-107) mmol/L Carbon Dioxide 26 (22-30) mmol/L Anion Gap 8.3 (5-15) MEQ/L BUN 20 (9-20) mg/dL Creatinine 1.06 (0.66-1.25) mg/dL Estimated GFR > 60.0 ML/MIN Glucose 144 H (74-106) mg/dL Lactic Acid (0.4-2.0) Calcium 9.1 (8.4-10.2) mg/dL Total Bilirubin 0.40 (0.2-1.3) mg/dL AST 74 H (17-59) U/L ALT 26 (0-50) U/L Alkaline Phosphatase 77 (38-126) U/L Troponin I 0.022 (0.000-0.034) ng/mL NT-Pro-B Natriuret Pep 396 (0-900) pg/mL Serum Total Protein 5.8 L (6.3-8.2) g/dL Albumin 3.1 L (3.5-5.0) g/dL Influenza Type A Ag NEGATIVE (NEGATIVE) Influenza Type B Ag NEGATIVE (NEGATIVE) RSV (PCR) NEGATIVE (Negative) SARS-CoV-2 (PCR) POSITIVE A (NEGATIVE) 11/13/21 11/13/21 Range/Units 17:00 17:00 WBC 7.4 (4.0-10.5) x10^3/uL RBC 4.51 (4.1-5.6) x10^6/uL Hgb 13.4 (12.5-18.0) g/dL Hct 41.1 L (42-50) % MCV 91.1 (78-100) fL MCH 29.7 (26-32) pg MCHC 32.6 (32-36) g/dL RDW 14.1 H (11.5-14.0) % Plt Count 234 (150-450) x10^3/uL MPV 9.5 (7.5-11.0) fL Gran % 68.8 H (36.0-66.0) % Immature Gran % (Auto) 0.9 H (0.00-0.4) % Nucleat RBC Rel Count 0.0 (0.00-0.1) % Eos # (Auto) 0.25 (0-0.5) x10^3/uL Immature Gran # (Auto) 0.07 H (0.00-0.03) x10^3u/L Absolute Lymphs (auto) 0.75 L (1.0-4.6) x10^3/uL Absolute Monos (auto) 1.21 (0.0-1.3) x10^3/uL Absolute Nucleated RBC 0.00 (0.00-0.01) x10^3u/L Lymphocytes % 10.1 L (24.0-44.0) % Monocytes % 16.4 H (0.0-12.0) % Eosinophils % 3.4 (0.00-5.0) % Basophils % 0.4 (0.0-0.4) % Absolute Granulocytes 5.08 (1.4-6.9) x10^3/uL Basophils # 0.03 (0-0.4) x10^3/uL Sodium (137-145) mmol/L Potassium (3.5-5.1) mmol/L Chloride (98-107) mmol/L Carbon Dioxide (22-30) mmol/L Anion Gap (5-15) MEQ/L BUN (9-20) mg/dL Creatinine (0.66-1.25) mg/dL Estimated GFR ML/MIN Glucose (74-106) mg/dL Lactic Acid 0.9 (0.4-2.0) Calcium (8.4-10.2) mg/dL Total Bilirubin (0.2-1.3) mg/dL AST (17-59) U/L ALT (0-50) U/L Alkaline Phosphatase (38-126) U/L Troponin I (0.000-0.034) ng/mL NT-Pro-B Natriuret Pep (0-900) pg/mL Serum Total Protein (6.3-8.2) g/dL Albumin (3.5-5.0) g/dL Influenza Type A Ag (NEGATIVE) Influenza Type B Ag (NEGATIVE) RSV (PCR) (Negative) SARS-CoV-2 (PCR) (NEGATIVE) - Progress Progress Note: 11/13/21 19:48 Pt w good sats on RA/Nonlabored respirations/Neg CXR/ Will start Paxlovid, renal function good Counseled pt/family regarding: lab results, diagnosis, need for follow-up, rad results - Departure Departure Disposition: Home Clinical Impression: COVID-19 Condition: Stable Critical Care Time: No Referrals: LINDY ENAMORADO MD [Primary Care Provider] - Follow up/PCP as directed Instructions: Cough, Adult (DC), COVID-19 (DC) Additional Instructions: Rest/Fluids/Tylenol Follow up with your family MD Start Paxlovid Get a pulse oximeter and monitor oxygen saturation 2-3 times a day Return to ER for persistent oxygen saturation less than 90% Prescriptions: Nirmatrelvir/Ritonavir [Paxlovid 2X150 mg-100 mg (Eua)] 1 each PO BID 5 Days #30 tablet
[2021-11-13 17:10] LABS: Absolute Neutrophil Ct (ANC) 5.08 x10^3/uL (1.4-6.9); Basophil (Absolute #) 0.03 x10^3/uL (0-0.4); Eosinophil % 3.4 % (0.00-5.0); Eosinophil (Absolute #) 0.25 x10^3/uL (0-0.5); Hematocrit 41.1 % (42-50); Hemoglobin 13.4 g/dL (12.5-18.0); Lymphocyte (Absolute #) 0.75 x10^3/uL (1.0-4.6); Lymphocytes % 10.1 % (24.0-44.0); Mean Cell Volume 91.1 fL (78-100); Mean Corpuscular Hemoglobin 29.7 pg (26-32); Mean Corpuscular Hgb Concent. 32.6 g/dL (32-36); Mean Platelet Volume 9.5 fL (7.5-11.0); Monocyte (Absolute #) 1.21 x10^3/uL (0.0-1.3); Monocytes % 16.4 % (0.0-12.0); Neutrophil % 68.8 % (36.0-66.0); Platelet Count 234 x10^3/uL (150-450); Red Blood Count 4.51 x10^6/uL (4.1-5.6); Red Cell Distribution Width 14.1 % (11.5-14.0); White Blood Count 7.4 x10^3/uL (4.0-10.5)
--- NOTE | 2021-11-13 17:20 | XRAY ---
Indication: Cough. Comparison: September 21, 2020. Portable apical lordotic less inflated and remains clear. Heart not enlarged. Bony thorax intact again with mild degenerative changes. No new/acute findings.
[2021-11-13 17:24] LABS: ALBUMIN 3.1 g/dL (3.5-5.0); ALKALINE PHOSPHATASE 77 U/L (38-126); ANION GAP 8.3 MEQ/L (5-15); BLOOD UREA NITROGEN 20 mg/dL (9-20); CHLORIDE 103 mmol/L (98-107); Calcium 9.1 mg/dL (8.4-10.2); Carbon Dioxide 26 mmol/L (22-30); Creatinine 1 1.06 mg/dL (0.66-1.25); EST GLOMERULAR FILTRATION RATE > 60.0 ML/MIN; Glucose 144 mg/dL (74-106); Potassium 4.4 mmol/L (3.5-5.1); SGOT/AST 74 U/L (17-59); SGPT/ALT 26 U/L (0-50); SODIUM 133 mmol/L (137-145); Total Protein 5.8 g/dL (6.3-8.2)
[2021-11-13 17:32] LABS: NT PRO BNP 396 pg/mL (0-900)
[2021-11-13 17:38] LABS: INFLUENZA A NEGATIVE (NEGATIVE); INFLUENZA B NEGATIVE (NEGATIVE); RESPIRATORY SYNCTIAL VIRUS NEGATIVE (Negative)
[2021-11-13 17:40] LABS: SARS-CoV-2 Xpert Express POSITIVE (NEGATIVE)
[2021-11-13 18:12] VITALS: BP 133/65; PULSE 72
== END 2021-11-13 18:12 | disposition home or self-care (01) ==
LOC: ED 16:02
DX: U07.1 COVID-19 (principal); R11.0 Nausea; R19.7 Diarrhea, unspecified; R50.9 Fever, unspecified; R05.1 Acute cough; R10.9 Unspecified abdominal pain; J02.9 Acute pharyngitis, unspecified; R06.00 Dyspnea, unspecified; M79.10 Myalgia, unspecified site; I10 Essential (primary) hypertension; E78.5 Hyperlipidemia, unspecified; J44.9 Chronic obstructive pulmonary disease, unspecified; E11.42 Type 2 diabetes mellitus with diabetic polyneuropathy; Z79.84 Long term (current) use of oral hypoglycemic drugs; Z79.899 Other long term (current) drug therapy; Z28.310 Unvaccinated for COVID-19
CPT/HCPCS: 0241U; 36000; 36415; 71045; 80053; 83605; 83880; 84484; 85025; 93005; 99284

== ENCOUNTER 2022-10-12 16:29 | Emergency (ER) | payer MEDICARE ==
--- NOTE | 2022-10-12 16:33 | ERPHSYRPT ---
- History of Present Illness Time Seen by Provider: 10/12/22 16:32 Historian: patient Exam Limitations: no limitations Physician History: This is a morbidly obese 67-year-old white male patient who has chronic angina and his chest pain has not changed but what has changed is exertional dizziness. Patient's primary care doctor is Dr. Swanson. Patient's family services specialist is Dr. Posadas. Patient states symptoms with exertion includes the dizziness spells and associated weakness. Patient turned in a Holter monitor last Saturday. The family services specialist office called the patient today and told him to come to the emergency department because he was having a complete AV block. However, that was sometime Saturday or before. The patient presents to the emergency department vital signs stable without evidence of an AV block on his twelve-lead EKG at this time. Patient has a history of gastroesophageal reflux disease, hypertension, diabetes, chronic angina, coronary artery disease (cardiac cath without stents), hyperlipidemia, anxiety, asthma, COPD and pulmonary embolism. Patient is only on an aspirin a day but not on any other types of anticoagulation therapy. Patient states that he "bled out" and therefore they took him off that medication. Timing/Duration: week(s) (2), intermittent, other (Not worse but patient notified about Holter monitor finding during him wearing the Holter monitor for approximately 48 hours) Location: substernal, central Chest Pain Radiation: no radiation Severity of Pain-Max: mild Severity of Pain-Current: mild Modifying Factors: Improves With: exertion (Gives him dizziness) Associated Symptoms: dizziness (With exertion only) Prior Chest Pain/Cardiac Workup: cardiac cath Nitro Today/Relief: no nitro taken today Aspirin Treatment Today: 81 mg x 1, provided at home Allergies/Adverse Reactions: nifedipine [From Procardia] Allergy (Verified 10/12/22 16:31) Swelling of Feet Home Medications: Glimepiride 2 mg [Amaryl 2 MG] 4 mg PO QAM 11/29/13 [History] Omeprazole 20 MG [Prilosec 20 mg] 20 mg PO QAM 11/29/13 [History] ALPRAZolam 0.25 MG [xanAX 0.25 MG] 0.5 mg PO DAILY PRN 08/21/15 [History] Montelukast Sodium 10 mg [Singulair 10 MG] 10 mg PO QPM 02/08/20 [History] Ezetimibe 10 mg [Zetia 10 MG] 10 mg PO DAILY 09/22/20 [History] Lisinopril/Hydrochlorothiazide [Lisinopril-Hctz 20-12.5 mg Tab] 1 each PO BID 09/22/20 [History] Multivit-Min/FA/Lycopen/Lutein [Men 50 Plus Multivitamin Tab] 1 each PO DAILY 09/22/20 [History] Empagliflozin [Jardiance] 25 mg PO DAILY 11/13/21 [History] Semaglutide [Ozempic] 0.5 mg SQ WEEKLY 11/13/21 [History] Amlodipine Besylate 5 mg [Norvasc 5 mg] 1 ea DAILY 10/12/22 [History] Aspirin 81 gm Chew [Baby Aspirin 81 mg Chew] 1 ea DAILY 10/12/22 [History] Escitalopram Oxalate [Lexapro] 20 mg PO DAILY 10/12/22 [History] Hx Tetanus, Diphtheria Vaccination/Date Given: Yes (2013) Hx Influenza Vaccination/Date Given: Yes Hx Pneumococcal Vaccination/Date Given: Yes Travel Risk - International Travel Have you traveled outside of the country in past 3 weeks: No - Coronavirus Screening Are you exhibiting any of the following symptoms?: No Close contact with a COVID-19 positive Pt in past 14-21 Days: No - Vaccine Status Have you recieved a Covid-19 vaccination: No - Review of Systems Constitutional: Weakness Eyes: No Symptoms (Chronic) Ears, Nose, & Throat: No Symptoms Respiratory: No Symptoms Cardiac: Chest Pain (Chronic substernal) Abdominal/Gastrointestinal: No Symptoms Genitourinary Symptoms: No Symptoms Musculoskeletal: No Symptoms Skin: No Symptoms Neurological: Dizziness (With exertion intermittently over the last 2 weeks) Psychological: No Symptoms Endocrine: No Symptoms Hematologic/Lymphatic: No Symptoms Immunological/Allergic: No Symptoms All Other Systems: Reviewed and Negative - Past Medical History Pertinent Past Medical History: Yes Neurological History: Migraines, Peripheral Neuropathy ENT History: Cataracts Cardiac History: Angina, Coronary Artery Disease, High Cholesterol, Hyperte nsion, Myocardial Infarction ([place]) Respiratory History: Asthma, COPD, Pulmonary Embolism Endocrine Medical History: Diabetes Type II Musculoskeletal History: Arthritis GI Medical History: GERD History: No Pertinent History Psycho-Social History: Anxiety, Depression Male Reproductive Disorders: No Pertinent History Other Medical History: HAS 3 CORONARY ARTERY BLOCKAGES WITH MEDS ONLY TO TX THUS FAR - Past Surgical History Past Surgical History: Yes Neuro Surgical History: No Pertinent History Cardiac: Cardiac Catheterization Respiratory: No Pertinent History Gastrointestinal: Hernia Repair Genitourinary: No Pertinent History Musculoskeletal: Other Male Surgical History: No Pertinent History Other Surgical History: RT SHOULDER INJURY THAT CAUSES PT PAIN, left shoulder rotator cuff repair,ruptured,states 5 cardiac cath - Social History Smoking Status: Never smoker Exposure to second hand smoke: No Alcohol Use: None Drug Use: none Patient Lives Alone: No Significant Family History: cancer - Nursing Vital Signs Nursing Vital Signs: Initial Vital Signs Temperature 97.2 F 10/12/22 16:44 Pulse Rate 79 10/12/22 16:44 Respiratory Rate 18 10/12/22 16:44 Blood Pressure 137/94 10/12/22 16:44 O2 Sat by Pulse Oximetry 96 10/12/22 16:44 Pain Scale Pain Intensity 3 - Physical Exam General Appearance: no apparent distress, alert, anxiety, obese Eye Exam: PERRL/EOMI, eyes nml inspection Ears, Nose, Throat Exam: normal ENT inspection, moist mucous membranes Neck Exam: normal inspection, non-tender, supple, full range of motion Respiratory Exam: normal breath sounds, lungs clear, airway intact, No chest tenderness, No respiratory distress Cardiovascular Exam: regular rate/rhythm, normal heart sounds, normal peripheral pulses Gastrointestinal/Abdomen Exam: soft, normal bowel sounds, No tenderness Rectal Exam: not done Back Exam: normal inspection, normal range of motion, No CVA tenderness, No vertebral tenderness Extremity Exam: normal inspection, normal range of motion, pelvis stable Neurologic Exam: alert, oriented x 3, cooperative, knife operator II-XII nml as tested, normal mood/affect, nml cerebellar function, nml station & gait, sensation nml Skin Exam: normal color, warm, dry Lymphatic Exam: No adenopathy SpO2 Interpretation: normal O2 Delivery: Room Air - Course Nursing assessment & vital signs reviewed: Yes EKG Interpreted by Me: RATE (79), Sinus Rhythm, NORMAL AXIS, NORMAL INTERVALS, NORMAL QRS, NORMAL ST-T, Other (No acute ischemic changes on today's twelve-lead EKG.) Ordered Tests: Active Orders 24 hr Category Date Time Status [employer] Salesperson STAT Care 10/12/22 16:43 Active EKG-ER Only STAT Care 10/12/22 16:43 Active IV Insertion STAT Care 10/12/22 16:43 Active Pulse Oximetry (ED) STAT Care 10/12/22 16:43 Active CHEST 1 VIEW (PORTABLE) Stat Exams 10/12/22 16:43 Taken CBC W DIFF Stat Lab 10/12/22 16:43 Completed CMP Stat Lab 10/12/22 16:45 Completed D-DIMER QUANTITATIVE Stat Lab 10/12/22 16:43 Completed NT PRO BNPII Stat Lab 10/12/22 16:45 Completed PROTIME WITH INR Stat Lab 10/12/22 16:43 Completed TROPONIN Q4H Lab 10/12/22 16:45 Completed TROPONIN Q4H Lab 10/12/22 20:45 Ordered TROPONIN Q4H Lab 10/13/22 00:45 Ordered Medication Summary Discontinued Medications Generic Name Dose Route Start Last Admin Trade Name Freq PRN Reason Stop Dose Admin Aspirin 324 mg 10/12/22 16:43 10/12/22 17:47 Aspirin 81 Mg Tab.Chew PO 10/12/22 16:44 324 mg STAT ONE Administration Lab/Rad Data: Laboratory Result Diagrams 10/12/22 16:43 10/12/22 16:45 Laboratory Results 10/12/22 10/12/22 10/12/22 Range/Units 16:45 16:45 16:45 WBC (4.0-10.5) x10^3/uL RBC (4.1-5.6) x10^6/uL Hgb (12.5-18.0) g/dL Hct (42-50) % MCV (78-100) fL MCH (26-32) pg MCHC (32-36) g/dL RDW (11.5-14.0) % Plt Count (150-450) x10^3/uL MPV (7.5-11.0) fL Gran % (36.0-66.0) % Immature Gran % (Auto) (0.00-0.4) % Nucleat RBC Rel Count (0.00-0.1) % Eos # (Auto) (0-0.5) x10^3/uL Immature Gran # (Auto) (0.00-0.03) x10^3u/L Absolute Lymphs (auto) (1.0-4.6) x10^3/uL Absolute Monos (auto) (0.0-1.3) x10^3/uL Absolute Nucleated RBC (0.00-0.01) x10^3u/L Lymphocytes % (24.0-44.0) % Monocytes % (0.0-12.0) % Eosinophils % (0.00-5.0) % Basophils % (0.0-0.4) % Absolute Granulocytes (1.4-6.9) x10^3/uL Basophils # (0-0.4) x10^3/uL PT (9.4-12.5) SECONDS INR (0.8-3.0) D-Dimer (0.0-0.50) mg/L Sodium 138 (137-145) mmol/L Potassium 5.3 H (3.5-5.1) mmol/L Chloride 99 (98-107) mmol/L Carbon Dioxide 31 H (22-30) mmol/L Anion Gap 13.5 (5-15) MEQ/L BUN 28 H (9-20) mg/dL Creatinine 1.30 H (0.66-1.25) mg/dL Estimated GFR 58.7 ML/MIN Glucose 138 H (74-106) mg/dL Calcium 10.2 (8.4-10.2) mg/dL Total Bilirubin 0.50 (0.2-1.3) mg/dL AST 50 (17-59) U/L ALT 25 (0-50) U/L Alkaline Phosphatase 90 (38-126) U/L Troponin I < 0.012 (0.000-0.034) ng/mL NT-Pro-B Natriuret Pep 21.0 (<300) pg/mL Serum Total Protein 7.5 (6.3-8.2) g/dL Albumin 4.2 (3.5-5.0) g/dL 10/12/22 10/12/22 Range/Units 16:43 16:43 WBC 9.9 (4.0-10.5) x10^3/uL RBC 5.06 (4.1-5.6) x10^6/uL Hgb 15.2 (12.5-18.0) g/dL Hct 47.9 (42-50) % MCV 94.7 (78-100) fL MCH 30.0 (26-32) pg MCHC 31.7 L (32-36) g/dL RDW 13.8 (11.5-14.0) % Plt Count 304 (150-450) x10^3/uL MPV 9.2 (7.5-11.0) fL Gran % 63.9 (36.0-66.0) % Immature Gran % (Auto) 0.7 H (0.00-0.4) % Nucleat RBC Rel Count 0.0 (0.00-0.1) % Eos # (Auto) 0.32 (0-0.5) x10^3/uL Immature Gran # (Auto) 0.07 H (0.00-0.03) x10^3u/L Absolute Lymphs (auto) 2.27 (1.0-4.6) x10^3/uL Absolute Monos (auto) 0.88 (0.0-1.3) x10^3/uL Absolute Nucleated RBC 0.00 (0.00-0.01) x10^3u/L Lymphocytes % 22.9 L (24.0-44.0) % Monocytes % 8.9 (0.0-12.0) % Eosinophils % 3.2 (0.00-5.0) % Basophils % 0.4 (0.0-0.4) % Absolute Granulocytes 6.33 (1.4-6.9) x10^3/uL Basophils # 0.04 (0-0.4) x10^3/uL PT 10.3 (9.4-12.5) SECONDS INR 0.94 (0.8-3.0) D-Dimer 0.47 (0.0-0.50) mg/L Sodium (137-145) mmol/L Potassium (3.5-5.1) mmol/L Chloride (98-107) mmol/L Carbon Dioxide (22-30) mmol/L Anion Gap (5-15) MEQ/L BUN (9-20) mg/dL Creatinine (0.66-1.25) mg/dL Estimated GFR ML/MIN Glucose (74-106) mg/dL Calcium (8.4-10.2) mg/dL Total Bilirubin (0.2-1.3) mg/dL AST (17-59) U/L ALT (0-50) U/L Alkaline Phosphatase (38-126) U/L Troponin I (0.000-0.034) ng/mL NT-Pro-B Natriuret Pep (<300) pg/mL Serum Total Protein (6.3-8.2) g/dL Albumin (3.5-5.0) g/dL - Progress Progress: improved, re-examined Air Movement: good Progress Note: 10/12/22 19:11 At 1855, Dr. Gerard called back. He is covering for the patient's family services specialist Dr. Posadas. I reviewed the patient history, patient's medication list, patient work-up results and EKG findings with Dr. Gerard. He feels that the patient would benefit from 24-hour observation. He feels the patient can stay at our institution despite not having cardiology just to make sure that this patient does not have an abnormal heart rhythm. He can be placed on telemetry. He could be discharged to home tomorrow if after 24 hours his period of observation shows no acute or emergent abnormalities. I put a call into Dr. Rodriguez the telehospitalist on-call. We are awaiting his return call. 10/12/22 19:43 I reviewed the patient history, physical findings and work-up results with Dr. Rodriguez, our telehospitalist. He does not feel comfortable admitting this patient into our hospital or placing him in observation here. The patient has documented episodes of AV block and has been symptomatic with it. Dr. Gerard stated that the patient would benefit from being monitored and Dr. Rodriguez said he agrees with that but he wants the patient monitored where there is a family services specialist in the event an AV block or other type of block occurs. We have put a call into [facility]. We are awaiting the return phone call. 10/12/22 19:44 10/12/22 19:47 Chest x-ray was interpreted by me. I do not see any acute cardiopulmonary process in this patient's chest x-ray. 10/12/22 20:07 Patient and family want the patient to be transferred to the [facility]. We have placed a call and are waiting for the hospitalist to return our call. 10/12/22 20:42 Dr. Dye, the [facility] hospitalist called back and I reviewed the patient history, history of present illness, work-up results. This patient is excepted by Dr. Dye at [facility] and Dr. Gerard, the family services specialist will be consulted. 10/12/22 20:43 This patient's medical issue is 1 of high complexity. Blood Culture(s) Obtained: No Antibiotics given: No Counseled pt/family regarding: lab results, diagnosis, need for follow-up Medical Desision Making - Discussion of managment Care discussed with:: hospitalist (Dr. Rodriguez feels patient should be transferred to facility where there is a family services specialist. I agree) Reviewed:: Test results, Need for additional workup - Diagnostic Testing Diagnostic test were ordered, analyzed, and reviewed by me: Yes Radiological Interpretation: Interpreted by me, Teleradiologist Report - Risk of complications The pt has a high risk of morbidity or mortality based on: Decision regarding hospitilization or escalation of hosp level of care - Departure Departure Disposition: Transfer Clinical Impression: Dizziness, nonspecific, Abnormal Holter monitor finding, Chronic stable angina Condition: Stable Critical Care Time: No Referrals: LINDY SWANSON MD [Primary Care Provider] - Follow up/PCP as directed
[2022-10-12] MEDS ORDERED: BABY ASPIRIN 81 MG CHEW PO ONE (16:43)
[2022-10-12 16:52] LABS: Absolute Neutrophil Ct (ANC) 6.33 x10^3/uL (1.4-6.9); BASOPHIL % 0.4 % (0.0-0.4); Basophil (Absolute #) 0.04 x10^3/uL (0-0.4); Eosinophil % 3.2 % (0.00-5.0); Eosinophil (Absolute #) 0.32 x10^3/uL (0-0.5); Hematocrit 47.9 % (42-50); Hemoglobin 15.2 g/dL (12.5-18.0); IMMATURE GRAN # 0.07 x10^3u/L (0.00-0.03); IMMATURE GRAN % 0.7 % (0.00-0.4); Lymphocyte (Absolute #) 2.27 x10^3/uL (1.0-4.6); Lymphocytes % 22.9 % (24.0-44.0); Mean Cell Volume 94.7 fL (78-100); Mean Corpuscular Hgb Concent. 31.7 g/dL (32-36); Mean Platelet Volume 9.2 fL (7.5-11.0); Monocyte (Absolute #) 0.88 x10^3/uL (0.0-1.3); Monocytes % 8.9 % (0.0-12.0); Neutrophil % 63.9 % (36.0-66.0); Platelet Count 304 x10^3/uL (150-450); Red Blood Count 5.06 x10^6/uL (4.1-5.6); Red Cell Distribution Width 13.8 % (11.5-14.0); White Blood Count 9.9 x10^3/uL (4.0-10.5)
[2022-10-12 17:11] LABS: ALBUMIN 4.2 g/dL (3.5-5.0); ANION GAP 13.5 MEQ/L (5-15); BILIRUBIN,TOTAL 0.5 mg/dL (0.2-1.3); Calcium 10.2 mg/dL (8.4-10.2); Creatinine 1 1.3 mg/dL (0.66-1.25); EST GLOMERULAR FILTRATION RATE 58.7 ML/MIN; Potassium 5.3 mmol/L (3.5-5.1); Total Protein 7.5 g/dL (6.3-8.2)
[2022-10-12 17:12] LABS: D-DIMER QUANTITATIVE 0.47 mg/L (0.0-0.50); INR 0.94 (0.8-3.0); PROTIME 10.3 SECONDS (9.4-12.5)
[2022-10-12] MEDS ORDERED: MORPHINE SULFATE 2 MG INJ IV ONE (20:45)
[2022-10-12] MEDS ORDERED: Zofran 4 MG/2 ML VIAL IV ONE (20:45)
[2022-10-12] MEDS ORDERED: Zofran 4 MG/2 ML VIAL ONE (20:48)
[2022-10-12] MEDS ORDERED: MORPHINE SULFATE 2 MG INJ ONE (20:49)
[2022-10-12 21:39] VITALS: O2SAT 94
[2022-10-12 22:23] VITALS: BP 119/74; PULSE 67
--- NOTE | 2022-10-12 22:30 | XRAY ---
CLINICAL HISTORY:Chronic angina; COMPARISON:None; TECHNIQUES:Chest x-ray, AP semierect portable views; FINDINGS: The cardiomediastinal silhouette is within normal limits for the AP projection. There is mild hilar bronchovascular congestion. No focal consolidation or collapse is seen in either lung field. No sizable pleural effusion. No appreciable pneumothorax. Visualized bones are grossly normal. IMPRESSION: No acute cardiopulmonary process. Electronically Signed by: Corry Gill MD. (10/12/2022 21:26:06 BALLOON PILOT)
== END 2022-10-12 22:30 | disposition short-term general hospital (02) ==
LOC: ED 16:29
DX: R93.1 Abnormal findings on diagnostic imaging of heart and coronary circulation (principal); R42 Dizziness and giddiness; I25.118 Atherosclerotic heart disease of native coronary artery with other forms of angina pectoris; I10 Essential (primary) hypertension; E11.42 Type 2 diabetes mellitus with diabetic polyneuropathy; E78.5 Hyperlipidemia, unspecified; Z79.84 Long term (current) use of oral hypoglycemic drugs; Z79.85 Long-term (current) use of injectable non-insulin antidiabetic drugs; Z79.899 Other long term (current) drug therapy; Z28.310 Unvaccinated for COVID-19
CPT/HCPCS: 36000; 36415; 71045; 80053; 83880; 84484; 85025; 85379; 85610; 93005; 93041; 94760; 96374; 96375; 99285; J2270; J2405; A9270-GY

== ENCOUNTER 2023-09-05 23:58 | Emergency (ER) | payer MEDICARE ==
[2023-09-06] MEDS ORDERED: ZOFRAN ODT 4 MG ONE (00:26)
[2023-09-06] MEDS ORDERED: MORPHINE SULFATE 4 MG INJ ONE (00:26)
[2023-09-06] MEDS: MORPHINE SULFATE 4 MG INJ IM ONE (00:27)
[2023-09-06] MEDS: ZOFRAN ODT 4 MG PO ONE (00:27)
[2023-09-06 00:33] VITALS: RESP 18; TEMP 96.8
--- NOTE | 2023-09-06 01:06 | ERPHSYRPT ---
- History of Present Illness Time Seen by Provider: 09/06/23 00:04 Source: patient, family Exam Limitations: no limitations Patient Subjective Stated Complaint: pt states he was on a latter and fell. pt states that he jammed his leg Triage Nursing Assessment: pt came in to the er via wheelchair; transfer self to cot with stand by assist with nurse; pt is axo x3; c/o left leg pain; pt states 8/10 pain LLE at rest; pt states 10/10 pain to LLE when standing or ambulating; strong left pedal pulse; slight swelling to left ankle; skin PDW; no respiratory distress present; vitals wnl Physician History: 68-year-old morbidly obese male with multiple medical problems presented in the ER with complaint of left lower extremity pain after he fell off of almost 4 feet high ladder, twisted his ankle and landed straight on it. Did not hit his head, reports moderate to severe sharp pain in the left lower extremity with standing and ambulation. This happened almost 7 hours ago. Patient has taken [id number] pain medication with no significant relief. Pain is exacerbated with minimal movements. Swelling around ankle but not around knee. Patient has history of chronic knee pain and is in the process of getting knee replaced. Denies any new back pain. Patient is able to move her left hip but has some pain. Intact range of motion. Allergies/Adverse Reactions: nifedipine [From Procardia] Allergy (Verified 09/06/23 00:09) Swelling of Feet Home Medications: Glimepiride 2 mg [Amaryl 2 MG] 4 mg PO QAM 11/29/13 [History] Omeprazole 20 MG [Prilosec 20 mg] 20 mg PO QAM 11/29/13 [History] ALPRAZolam 0.25 MG [xanAX 0.25 MG] 0.5 mg PO DAILY PRN 08/21/15 [History] Montelukast Sodium 10 mg [Singulair 10 MG] 10 mg PO QPM 02/08/20 [History] Ezetimibe 10 mg [Zetia 10 MG] 10 mg PO DAILY 09/22/20 [History] Lisinopril/Hydrochlorothiazide [Lisinopril-Hctz 20-12.5 mg Tab] 1 each PO BID 09/22/20 [History] Mv-Min/Folic/K1/Lycopen/Lutein [Men 50 Plus Multivitamin Tab] 1 each PO DAILY 09/22/20 [History] Empagliflozin [Jardiance] 25 mg PO DAILY 11/13/21 [History] Semaglutide [Ozempic] 0.5 mg SQ WEEKLY 11/13/21 [History] Amlodipine Besylate 5 mg [Norvasc 5 mg] 1 ea DAILY 10/12/22 [History] Aspirin 81 gm Chew [Baby Aspirin 81 mg Chew] 1 ea DAILY 10/12/22 [History] Escitalopram Oxalate [Lexapro] 20 mg PO DAILY 10/12/22 [History] Hx Tetanus, Diphtheria Vaccination/Date Given: Yes (2013) Hx Influenza Vaccination/Date Given: Yes Hx Pneumococcal Vaccination/Date Given: Yes Immunizations Up to Date: No Travel Risk - International Travel Have you traveled outside of the country in past 3 weeks: No - Emerging Infectious Disease Are you exhibiting symptoms associated with any current EIDs: No - Review of Systems Constitutional: No Symptoms Ears, Nose, & Throat: No Symptoms Respiratory: No Symptoms Cardiac: No Symptoms Abdominal/Gastrointestinal: No Symptoms Genitourinary Symptoms: No Symptoms Musculoskeletal: Arthralgias, Fall, Joint Pain, Joint Swelling Skin: No Symptoms Neurological: No Symptoms Psychological: No Symptoms Hematologic/Lymphatic: No Symptoms Immunological/Allergic: No Symptoms - Past Medical History Pertinent Past Medical History: Yes Neurological History: Migraines, Peripheral Neuropathy ENT History: Cataracts Cardiac History: Angina, Coronary Artery Disease, High Cholesterol, Hypertension, Myocardial Infarction ([place]) Respiratory History: Asthma, COPD, Pulmonary Embolism Endocrine Medical History: Diabetes Type II Musculoskeletal History: Arthritis GI Medical History: GERD History: No Pertinent History Psycho-Social History: Anxiety, Depression Male Reproductive Disorders: No Pertinent History Other Medical History: HAS 3 CORONARY ARTERY BLOCKAGES WITH MEDS ONLY TO TX THUS FAR - Past Surgical History Past Surgical History: Yes Neuro Surgical History: No Pertinent History Cardiac: Cardiac Catheterization Respiratory: No Pertinent History Gastrointestinal: Hernia Repair Genitourinary: No Pertinent History Musculoskeletal: Other Male Surgical History: No Pertinent History Other Surgical History: RT SHOULDER INJURY THAT CAUSES PT PAIN, left shoulder rotator cuff repair,ruptured,states 5 cardiac cath Significant Family History: cancer - Social History Smoking Status: Never smoker Exposure to second hand smoke: No Alcohol Use: None Drug Use: none Patient Lives Alone: No - Nursing Vital Signs Nursing Vital Signs: Initial Vital Signs Temperature 96.8 F 09/06/23 00:10 Pulse Rate 80 09/06/23 00:10 Respiratory Rate 18 09/06/23 00:10 Blood Pressure 131/63 09/06/23 00:10 O2 Sat by Pulse Oximetry 94 L 09/06/23 00:10 Pain Scale Pain Intensity 5 - Saul Coma Score Best Eye Response ([place]): (4) open spontaneously Best Verbal Response ([place]): (5) oriented Best Motor Response ([place]): (6) obeys commands [place] Total: 15 - Physical Exam General Appearance: no apparent distress, alert Head Injury: no evidence of injury Eye Exam: PERRL/EOMI, eyes nml inspection ENT Exam: airway nml, No evidence of ENT injury, No dental injury Neck Exam: supple, trachea midline, full range of motion, normal alignment Respiratory/Chest Exam: normal breath sounds, respiratory distress, No chest tenderness Cardiovascular Exam: normal heart sounds, regular rate/rhythm Gastrointestinal Exam: soft, normal bowel sounds, No tenderness Back Exam: normal inspection, muscle spasm, No vertebral tenderness Extremity Exam: other (Mild swelling left ankle. Tenderness about malleoli. Mild tenderness around the knee and mitchell area. Intact range of motion at the knee ankle and hip.) Neurologic Exam: alert, oriented x 3, cooperative, teacher specialist II-XII nml as tested Skin Exam: normal color SpO2 Interpretation: normal SpO2: 94 O2 Delivery: Room Air Ordered Tests: Active Orders 24 hr Category Date Time Status ANKLE (3 VIEWS) Stat Exams 09/06/23 00:23 Taken HIP UNI (2V) INCL PEL IF DONE Stat Exams 09/06/23 00:23 Taken KNEE (3 VIEWS) Stat Exams 09/06/23 00:23 Taken PELVIS WITHOUT CONTRAST [CT] Stat Exams 09/06/23 01:18 Completed Medication Summary Discontinued Medications Generic Name Dose Route Start Last Admin Trade Name Freq PRN Reason Stop Dose Admin Morphine Sulfate 4 mg 09/06/23 00:23 09/06/23 00:27 Morphine Sulfate 4 Mg/Ml Injection IM 09/06/23 00:24 4 mg STAT ONE Administration Morphine Sulfate Confirm 09/06/23 00:26 Morphine Sulfate 4 Mg/Ml Injection Administered 09/06/23 00:27 Dose 4 mg .ROUTE .STK-MED ONE Ondansetron HCl 4 mg 09/06/23 00:23 09/06/23 00:27 Zofran 4 Mg/Udtablet Orally Disintegrating PO 09/06/23 00:24 4 mg STAT ONE Administration Ondansetron HCl Confirm 09/06/23 00:26 Zofran 4 Mg/Udtablet Orally Disintegrating Administered 09/06/23 00:27 Dose 4 mg .ROUTE .STK-MED ONE - Progress Progress Note: 09/06/23 03:50 Feeling better Counseled pt/family regarding: diagnosis, need for follow-up, rad results Medical Desision Making - Independent Historian Additional History obtained from: Spouse - Diagnostic Testing Diagnostic test were ordered, analyzed, and reviewed by me: Yes Radiological Interpretation: Interpreted by me, Reviewed by me, Teleradiologist Report - Risk of complications The pt has a mod risk of morbidity or mortality based on: Need for prescription drug management - Departure Departure Disposition: Home Clinical Impression: Left ankle sprain, Strain of left hip, Fall Condition: Stable Critical Care Time: No Referrals: LINDY ENAMORADO MD [Primary Care Provider] - Follow up with PCP 1 day DUARTE CASTAÑEDA MD [ACTIVE STAFF] - Follow up/PCP as directed (Call in the morning for appointment for reevaluation) Instructions: Ankle Sprain ED, Lower Extremity Muscle Strain ([place]) Additional Instructions: Take Tylenol/tramadol as needed. Weightbearing only as tolerated. Use crutches/cane or walker for ambulation. Follow-up with orthopedics for reevaluation. Return to ER for any worsening. Prescriptions: Tramadol HCl 50 mg [Ultram 50 mg] 50 mg PO Q6HPRN PRN 3 Days #12 tablet PRN Reason: Pain
--- NOTE | 2023-09-06 03:13 | XRAY ---
CLINICAL HISTORY: fall, hip pain COMPARISON: CR study dated 10/03/2022 TECHNIQUE: CT scan of the pelvis and both hip joints, without IV contrast with reformatted axial, coronal, and sagittal images. "One of the following dose reduction techniques was utilized for this exam: Automated exposure control, adjustment of the mA and/or kV according to patient size, and use of iterative reconstruction." FINDINGS: No osseous fractures or dislocations identified. Mild bilateral hips osteoarthritic changes are evident by small marginal osteophytic lipping of their opposing articular surfaces with subtle subcortical sclerosis of the acetabulum. No evidence of femoral head fractures or structural collapse. No significant hip joints effusion. Mild degenerative changes of the sacroiliac joints. Mild osteitis pubis. lumbar spondylosis. Femoral greater trochanters as well as ischial, pubic, and bilateral iliac ensethopathy noted. Normal noncontrast CT appearance of the examined muscles. Enlarged prostate showing dense calcifications. Aortoiliac atheromatous calcifications. IMPRESSION: 1. No osseous fractures or dislocations identified. 2. Mild bilateral hips osteoarthritic changes. stable left hip findings. Electronically Signed by: Corry Gill MD. (09/06/2023 03:09:48 EDT)
[2023-09-06 03:53] VITALS: PULSE 78
[2023-09-06 04:26] VITALS: BP 123/56; O2SAT 93
--- NOTE | 2023-09-06 08:41 | XRAY ---
Indication: Pain following fall. Comparison: None AP and oblique view left ankle demonstrates osteopenia and mild soft tissue swelling. No other bony, articular, or soft tissue abnormalities.
--- NOTE | 2023-09-06 08:41 | XRAY ---
Indication: Pain following fall. Comparison: None 3 view left knee demonstrates osteopenia, moderate/advanced tricompartmental degenerative changes greatest lateral compartment, tiny medial/lateral supracondylar heterotopic ossifications, small nonspecific effusion, and incidental posterior fabella. No other bony, articular, or soft tissue abnormalities.
--- NOTE | 2023-09-06 08:45 | XRAY ---
Indication: Pain following fall. Comparison: October 03, 2022 AP pelvis and 2 view left hip unchanged again demonstrating osteopenia, tiny bilateral greater trochanter spurring, mild lower lumbar degenerative changes, and prostate calcifications. No new/acute bony, articular, or soft tissue abnormalities.
== END 2023-09-06 04:15 | disposition home or self-care (01) ==
LOC: ED 23:58
DX: S93.402A Sprain of unspecified ligament of left ankle, initial encounter (principal); S76.012A Strain of muscle, fascia and tendon of left hip, initial encounter; W11.XXXA Fall on and from ladder, initial encounter; M79.605 Pain in left leg; E78.5 Hyperlipidemia, unspecified; I10 Essential (primary) hypertension; E11.42 Type 2 diabetes mellitus with diabetic polyneuropathy; Z79.84 Long term (current) use of oral hypoglycemic drugs; Z79.85 Long-term (current) use of injectable non-insulin antidiabetic drugs; Z79.891 Long term (current) use of opiate analgesic; Z79.899 Other long term (current) drug therapy
CPT/HCPCS: 72192; 73502; 73562; 73610; 96372; 99284; J2270; Q0162

== ENCOUNTER 2023-09-24 07:25 | Day surgery (SDC) | payer MEDICARE ==
[2023-09-24] MEDS ORDERED: Lactated Ringers 1,000 ML IV ONE ×2 (07:42→11:30)
[2023-09-24] MEDS: KEFZOL 1 GM** 3 G in Sodium Chloride 0.9% 50 ML 50 ML IV ONE (07:51)
[2023-09-24] MEDS: Lactated Ringers 1,000 ML IV SCH (07:52)
[2023-09-24] MEDS ORDERED: NEURONTIN ONE (07:53)
[2023-09-24] MEDS ORDERED: celeBREX 100 MG ONE (07:53)
[2023-09-24] MEDS ORDERED: TYLENOL EXTRA STRENGTH 500 MG ONE (07:53)
[2023-09-24] MEDS: celeBREX 100 MG PO ONE (07:55)
[2023-09-24] MEDS: TYLENOL EXTRA STRENGTH 500 MG PO ONE (07:56)
[2023-09-24] MEDS: NEURONTIN PO ONE (07:56)
[2023-09-24 08:16] LABS: BASOPHIL % 0.6 % (0.0-0.4); Basophil (Absolute #) 0.04 x10^3/uL (0-0.4); Eosinophil % 9.9 % (0.00-5.0); Eosinophil (Absolute #) 0.69 x10^3/uL (0-0.5); Hematocrit 45.1 % (42-50); IMMATURE GRAN # 0.03 x10^3u/L (0.00-0.03); IMMATURE GRAN % 0.4 % (0.00-0.4); Lymphocyte (Absolute #) 1.54 x10^3/uL (1.0-4.6); Lymphocytes % 22.2 % (24.0-44.0); Mean Cell Volume 89.7 fL (78-100); Mean Corpuscular Hemoglobin 29.8 pg (26-32); Mean Corpuscular Hgb Concent. 33.3 g/dL (32-36); Mean Platelet Volume 9.9 fL (7.5-11.0); Monocyte (Absolute #) 0.64 x10^3/uL (0.0-1.3); Monocytes % 9.2 % (0.0-12.0); Neutrophil % 57.7 % (36.0-66.0); Platelet Count 243 x10^3/uL (150-450); Red Blood Count 5.03 x10^6/uL (4.1-5.6); Red Cell Distribution Width 13.8 % (11.5-14.0); White Blood Count 6.9 x10^3/uL (4.0-10.5)
[2023-09-24 08:22] LABS: ALBUMIN 3.8 g/dL (3.5-5.0); ANION GAP 8.4 MEQ/L (5-15); BILIRUBIN,TOTAL 0.8 mg/dL (0.2-1.3); Calcium 10.2 mg/dL (8.4-10.2); Creatinine 1 0.73 mg/dL (0.66-1.25); EST GLOMERULAR FILTRATION RATE 99.7 ML/MIN; Potassium 4.6 mmol/L (3.5-5.1); Total Protein 6.9 g/dL (6.3-8.2)
[2023-09-24] MEDS ORDERED: DUONEB 0.5-3 MG/3 ml Neb IH ONE (08:37)
[2023-09-24 08:39] LABS: INR 0.98 (0.8-3.0); PROTIME 10.7 SECONDS (9.4-12.5); PTT 25.6 SECONDS (25.1-36.5)
[2023-09-24] MEDS: DUONEB 0.5-3 MG/3 ml Neb IH ONE (08:39)
[2023-09-24] MEDS ORDERED: Pre-Attached Lta Kit TP ONE (09:14)
[2023-09-24] MEDS ORDERED: EXPAREL 133 MG/10 ML VIAL IJ ONE (09:14)
[2023-09-24] MEDS ORDERED: Marcaine Mpf 0.5% Vial 30 Ml ONE (09:15)
[2023-09-24] MEDS ORDERED: DIPRIVAN 200 MG/20 ML IV ONE ×2 (09:23→09:28)
[2023-09-24] MEDS ORDERED: Quelicin Fliptop 200 MG/10 ML ONE (09:24)
[2023-09-24] MEDS ORDERED: SUBLIMAZE 100 MCG/2 ML ONE ×3 (09:24→14:22)
[2023-09-24] MEDS ORDERED: Zofran 4 MG/2 ML VIAL ONE (09:24)
[2023-09-24] MEDS ORDERED: DEXMEDETOMIDINE 80 MCG/20ML-NS IV ONE (09:24)
[2023-09-24] MEDS ORDERED: Versed 2 MG/2 ML Injection ONE (09:24)
[2023-09-24] MEDS ORDERED: Decadron 4 MG INJ ONE (09:24)
[2023-09-24] MEDS ORDERED: Xylocaine-Mpf 2% 5 Ml Vial ONE (09:24)
[2023-09-24] MEDS ORDERED: Ephedrine Sulfate 50 MG/ML ONE (11:28)
[2023-09-24] MEDS ORDERED: PHENYLEPHRINE HCL ONE (11:33)
[2023-09-24] MEDS ORDERED: APRESOLINE 20 MG/ML INJ ONE (12:35)
--- NOTE | 2023-09-24 13:49 | XRAY ---
Indication: Left foot arthrodesis and posterior malleolus ORIF. Intraoperative fluoroscopy provided for 6 minutes 11 seconds. 31 digital spot images submitted for interpretation ultimately demonstrates 1st-3rd tarsometatarsal arthrodesis and posterior malleolus ORIF surgery all with intact hardware. Correlate with intraoperative findings/report.
[2023-09-24] MEDS ORDERED: Hydromorphone 1 mg/ml Injection ONE (14:31)
--- NOTE | 2023-09-24 15:19 | XRAY ---
6 minutes 11 seconds of fluoroscopy used in surgery for a left foot arthrodesis and posterior malleolus ORIF.
[2023-09-24 15:37] VITALS: RESP 18; TEMP 96.4; O2SAT 93
[2023-09-24 16:06] VITALS: BP 120/76; PULSE 104
--- NOTE | 2023-09-25 12:01 | OP ---
SURGERY DATE/TIME: 09/24/2023 1054 PREOPERATIVE DIAGNOSES: 1) Left ankle pain. 2) Left foot pain. 3) Posterior malleolus fracture left ankle. 4) Tarsometatarsal joint fracture dislocation/Lisfranc with comminution at metatarsal bases. 5) Osteoarthritis mid foot. 6) Uncontrolled diabetes mellitus. 7) Peripheral venous insufficiency. POSTOPERATIVE DIAGNOSES: 1) Left ankle pain. 2) Left foot pain. 3) Posterior malleolus fracture left ankle. 4) Tarsometatarsal joint fracture dislocation/Lisfranc with comminution at metatarsal bases. 5) Osteoarthritis mid foot. 6) Uncontrolled diabetes mellitus. 7) Peripheral venous insufficiency. PROCEDURES: 1) Open reduction internal fixation of posterior malleolus fracture left ankle. 2) Multiple transverse tarsometatarsal joint arthrodesis left foot. 3) Calcaneal autograft. 4) [place] of bone marrow aspirate. SURGEON: Cortez Vuong DPM. NECKTIE STITCHER: None. ANESTHESIA: General plus a preoperative femoral block. See anesthesia report for details. HEMOSTASIS: Thigh tourniquet set to 325 mm of [place] for 85 total tourniquet minutes. MATERIALS: 2 cc of StrataGraft Plus with bone marrow aspirate, two - 15 x 15 [place] 4.0 x 44 fully threaded cannulated screw, 4.0 x 30 and 4.0 x 42 for Lisfranc and medial cuneiform stability, two - 3.4 x 28 and 3.4 x 24 VPC screws for the second and third and a 4.0 x 44 partially threaded Diana cannulated screw for the posterior malleolus. INJECTABLES: See anesthesia report for details. INDICATION FOR SURGERY: Sean is a very pleasant 68-year-old male who presented to the emergency department following a fall. On initial inspection, the patient was found to have a posterior malleolar fracture which was isolated and also some concern of mid foot pain which was concerning for a Lisfranc fracture. Non-weight bearing x-rays were taken as well as a CT scan which demonstrated a significant amount of intra-articular fracture through tarsometatarsal joint one through four. As a result, the patient was referred to the orthopedic service and was planned for conservative management. However was looking for monitoring of the foot and the posterior malleolus fracture. This was handed to my service where more about the patient was learned. The patient is an uncontrolled diabetic with an A1C of 7.5. He also does have significant amount of venous insufficiency. As a result, the patient was assessed from a lifestyle standpoint and due to significant issue, which is new ipsilateral knee, he is not a good candidate for a knee scooter. He does have a significant amount of stairs going into his home and he does not have a ramp. The patient was thought to be best to heal weight bearing with the use of a walker. However, there is some concern regarding the posterior malleolus fracture displacing it less too only bear weight to his heel. The patient was consented in regards to options and we decided to proceed on fixing the posterior malleolus fracture even though it is less 20% of the articular surface in order to allow him to bear weight without significant concern for the displacement of the posterior malleolar fragment during the period of time he remains non-weight bearing to the forefoot of the left lower extremity while trying to heal the arthrodesis of the left foot. The patient is amenable to this course. The patient understands all risks, complications and benefits of surgical intervention at this time including but not limited to infection, hematoma, seroma, possibility of delayed incision healing, possibility of irritating hardware and possibility of failure of surgical outcome. No guarantees were provided as to the result of the outcome of the intervention provided today. It is with that we decided to proceed. Plenty of time was allowed for the patient to ask questions which were answered to his apparent satisfaction. It is at this time we decided to proceed. DESCRIPTION OF PROCEDURE AND FINDINGS: The patient was brought to the postoperative anesthesia care unit prior to the procedure for a popliteal and saphenous block. We were having difficulty with the block and decided to move on to a femoral block at that time. Once successful block was performed, the patient brought into the OR and placed on the OR table in the supine position. At this time, general anesthesia was administered until the patient was adequately sedated. A well-padded thigh tourniquet was applied to the patient's left thigh. The left lower extremity was prepped and draped in the typical sterile fashion and lowered onto the surgical field. At this time attention was directed to the lateral aspect of the calcaneus and under fluoroscopic guidance the safe zone was identified. Bone marrow aspirate was harvested from the heel this was mixed with 2 cc of StrataGraft for later on in the procedure. Following this, calcaneal autograft harvested for additional bulk to the graft site approximately 3 cc were harvested at this time this was mixed with the StrataGraft and held for later on in the procedure. Under fluoroscopic guidance, the posterior malleolar fracture was reduced utilizing tenaculum and then 4.0 x 44 mm partially threaded screw was introduced in a posterior to anterior orientation in order to prevent migration of the posterior malleolar fragment with heel weight bearing during the postoperative period. Following this, attention was directed to the forefoot where linear incisions were made with a 4 cm skin bridge between the medial aspect of the first tarsometatarsal joint and the dorsal aspect of the mid foot between tarsometatarsal joints 2 and 3. These incisions were carried down making sure not to damage any neurovascular structures along the way. Any neurovascular structures that were encountered were retracted gently out of visualization of the heel this was carried down to the level of the bone with gentle retraction on both sides. Initially the medial capsule was then incised and resection of the joint took place medially removing any residual cartilage identifying the intra-articular fracture. The fracture did extend at the plantar aspect of the articular surface at the first tarsometatarsal joint with significant amount of tarsometatarsal joint osteoarthritis at the dorsal aspect this was all excised until the subchondral plate was denuded of any remaining cartilage. The same process took place in the midfoot with a significant amount of time spent clearing the spurs over the dorsal aspect of the tarsometatarsal joint and removing any residual cartilage within the joint space for the second and third tarsometatarsal joints. As a result, copious amounts of sterile saline were utilized to flush the surgical site. At this time, the joints were then prepped utilizing a combination of 2.0 mm drill bit, a straight osteotome and a honey lilliam, this was utilized to increase the surface area, increase the potential for vascular ingrowth and provide for a good environment for arthrodesis. Once position was assessed, a 4.0 x 44 mm fully threaded screw was introduced from a bursal distal to proximal plantar orientation into the first tarsometatarsal joint gaining excellent compression. Two - 15 x 15 [place] were introduced gaining more compression as the screw was advanced holding excellent compression in the site. Following this, a 3.4 x 28 and a 3.4 x 24 was introduced into the second and third tarsometatarsal joint gaining excellent compression between the joint surfaces. Following this, copious amounts of sterile saline were utilized as a superficial flush. It is noted that after the joint prep the bone marrow aspirate plus StrataGraft plus calcaneal autograft was introduced in the deficit making sure not to over pack the joints however to provide for substantial bone contact and compression. Following this, the incisions were coapted utilizing 4-0 Monocryl and 3-0 Nylon in simple interrupted buried-type fashion as well as a horizontal mattress-type fashion for all incisions. The posterior incisions for the posterior malleolar fracture was fixated with simple interrupted. From that standpoint, the tourniquet was let down. A dressing consisting of iodine, Adaptic, 4x4, Kerlix, ABD and a well-padded posterior splint with Sugar-Tong was applied to the patient's left lower extremity with the foot orthogonal relative to longitudinal axis of the leg. The patient was then reversed from anesthesia and returned to the postoperative anesthesia care unit with vital signs stable and vascular status intact. The patient handled the anesthesia as well as the procedure without significant complication. Postoperative orders as indicated in the patient's discharge chart.
== END 2023-09-24 16:30 | disposition home or self-care (01) ==
LOC: SDC 07:25
PROVIDERS: ATTEND Podiatrist Foot & Ankle Surgery
DX: S82.65XA Nondisplaced fracture of lateral malleolus of left fibula, initial encounter for closed fracture (principal); M25.572 Pain in left ankle and joints of left foot; M79.672 Pain in left foot; M19.072 Primary osteoarthritis, left ankle and foot; I87.2 Venous insufficiency (chronic) (peripheral); S93.325A Dislocation of tarsometatarsal joint of left foot, initial encounter; E11.69 Type 2 diabetes mellitus with other specified complication
CPT/HCPCS: 01480; 20902; 27769; 28730; 36415; 38220; 64447; 64450; 73630; 76000; 76937; 76942; 80053; 83036; 85025; 85610; 85730; 93005; 94640; C1713; C1762; C1776; J0330; J0360; J0690; J1100; J1170; J2250; J2371; J2405; J2704; J3010; L1830; A9270-GY

== ENCOUNTER 2024-02-26 06:11 | Day surgery (SDC) | payer MEDICARE ==
[2024-02-26] MEDS ORDERED: TRANEXAMIC 1,000 MG/100ML-NACL 1,000 MG/100 ML PIGGYBACK IV ONE (06:15)
[2024-02-26] MEDS ORDERED: TYLENOL EXTRA STRENGTH 500 MG ONE (06:15)
[2024-02-26] MEDS ORDERED: celeBREX 100 MG ONE (06:16)
[2024-02-26] MEDS ORDERED: NEURONTIN ONE (06:16)
[2024-02-26] MEDS ORDERED: Decadron 4 MG ONE (06:16)
[2024-02-26] MEDS ORDERED: Lactated Ringers 1,000 ML IV ONE ×2 (06:16→09:36)
[2024-02-26] MEDS: celeBREX 100 MG PO ONE (06:39)
[2024-02-26] MEDS: TYLENOL EXTRA STRENGTH 500 MG PO ONE (06:39)
[2024-02-26] MEDS: Decadron 4 MG PO ONE (06:39)
[2024-02-26] MEDS: NEURONTIN PO ONE (06:39)
[2024-02-26] MEDS: TRANEXAMIC 1,000 MG/100ML-NACL 1,000 MG/100 ML PIGGYBACK IV ONE (06:40)
[2024-02-26] MEDS: Lactated Ringers 1,000 ML IV SCH (06:40)
[2024-02-26] MEDS ORDERED: TRANEXAMIC 1,000 MG/100ML-NACL 1,000 MG/100 ML PIGGYBACK IV SCH (07:15)
[2024-02-26] MEDS ORDERED: Naropin 0.5% 30 ML VIAL*** 123.125 MG, TORAdol 30 mg Injection*** 15 MG, Epinephrine Pr... IV ONE (07:15)
[2024-02-26] MEDS: KEFZOL 1 GM** 3 G in Sodium Chloride 0.9% 50 ML 50 ML IV SCH (07:24)
[2024-02-26] MEDS ORDERED: SUBLIMAZE 100 MCG/2 ML ONE ×3 (07:49→09:46)
[2024-02-26] MEDS ORDERED: DIPRIVAN 200 MG/20 ML IV ONE (07:49)
[2024-02-26] MEDS ORDERED: EXPAREL 133 MG/10 ML VIAL IJ ONE (07:50)
[2024-02-26] MEDS ORDERED: Xylocaine-Mpf 2% 5 Ml Vial ONE (07:50)
[2024-02-26] MEDS ORDERED: Zofran 4 MG/2 ML VIAL ONE (07:50)
[2024-02-26] MEDS ORDERED: Pre-Attached Lta Kit TP ONE (07:50)
[2024-02-26] MEDS ORDERED: Quelicin Fliptop 200 MG/10 ML ONE (07:50)
[2024-02-26] MEDS ORDERED: Marcaine Mpf 0.5% Vial 30 Ml ONE (07:50)
[2024-02-26] MEDS ORDERED: Versed 2 MG/2 ML Injection ONE (07:55)
[2024-02-26] MEDS ORDERED: Ephedrine Sulfate 50 MG/ML ONE (09:29)
[2024-02-26] MEDS ORDERED: TRANDATE 20 MG/4 ML SYRINGE IV ONE (09:49)
[2024-02-26] MEDS ORDERED: BRIDION 200MG/2ML IV ONE ×2 (10:40)
[2024-02-26] MEDS ORDERED: ALBUTEROL/Proair Hfa MDI IH ONE (10:50)
--- NOTE | 2024-02-26 12:30 | XRAY ---
Indication: Postop total knee replacement. Comparison: None AP/crosstable lateral left knee demonstrates intact total knee arthroplasty with postoperative effusion, soft tissue swelling, and anterior cutaneous guerrero. Incidental osteopenia and small posterior fabella. No other bony, articular, or soft tissue abnormalities.
[2024-02-26 13:02] VITALS: O2SAT 98
[2024-02-26] MEDS: NORCO 7.5/325 MG TAB PO PRN (17:07)
[2024-02-26 19:24] VITALS: BP 138/64; PULSE 65; RESP 18; TEMP 97.5
--- NOTE | 2024-02-27 10:47 | OP ---
SURGERY DATE/TIME: 02/26/2024 [id number] DIAGNOSIS: Left knee degenerative joint disease. PROCEDURE PERFORMED: Left total knee replacement. SURGEON: Shane Cooper MD. VOICE OVER ARTIST: Second scrub. ANESTHESIA: General with peripheral block. There was an attempt at spinal. FINDINGS: Severe DJD with valgus. IMPLANTS: Diana Persona 5-degree left size F tibia; a Persona left size 6 cruciate-retaining cement femur; the 35 mm diameter patella 9 mm thick, symmetric and the Vivacit-E highly constrained polyethylene left 10 mm medial congruent articular surface size EF, left. INDICATION FOR PROCEDURE: Patient is a 68-year-old white male with painful left knee refractory to conservative care. He wished to have this replaced for pain relief. DESCRIPTION OF PROCEDURE: Patient was seen in the holding room. We identified the left knee as correct; this was initialed by me. He had 1000 mg tranexamic acid and 3 g of Kefzol. He was taken to the OR. He had already had a nerve block. He had attempted spinal, then converted to general. He had a bump under his left hip. He had sterile prep and drape of the left lower extremity. Time-out was performed by me. A midline incision was made from just medial to the tibial tubercle at about 6 cm above the superior pole of the patella. A medial parapatellar approach was made, splitting the quadriceps tendon 10% and 90%. The patella was everted. The fat pad was excised about 50%. The patella thickness was measured at 25 mm of thickness. The Diana reamer was used to ream down to 16 mm thickness for a round 3-peg patella which was 9 mm thick. The drill clamp guide was used to develop the 3 holes. The osteophytes on the lateral femur were removed with an osteotome. The drill was drilled down the center of the tibial and femoral canals. The guide jess was placed on the femur in 5 degrees of valgus for a left knee. A 10 mm distal cut was made. The intramedullary jess was placed on the tibia with a 7-degree posterior scope, taking 4 mm off the lateral side in neutral varus. Judged with an external jess. The cutting block was then in place and the cut surface made on the tibia, protecting the PCL and posterior structures and medial and lateral structures with reactors. The bone wafer was removed. The [place] line and transepicondylar axis were drawn on the femur. The sizing guide was applied and was marked in 5 degrees of external rotation due to the hypoplastic lateral femoral condyle but this made it about parallel with the transepicondylar axis. This was used with an anterior referencing guide to choose a size 6 femur. The six 6 cutting block was put into place and the anterior and posterior cuts, as well as anterior chamfer and posterior chamfer cuts were made. The menisci were excised. The flexion and extension gaps were checked and were equal for a 10 mm spacer. The tibia was sized to a size F. The size F tibia was pinned in place at the medial third of the tibial tubercle. The size 6 femur cruciate-retaining was impacted flush with the bone cuts. Then, a 10 mm spacer was placed with good range of motion, good stability throughout the range of motions to varus and valgus stress and from 0 to 110 of flexion. Patella tracking midline with the patella button on. The femoral lug nuts were then drilled out. The tibial bone was drilled out with a drill and keel punch. Bony surfaces were irrigated and dried. Femoral canal was plugged with a bone plug. The 30 mL of 0.5% ropivacaine was mixed with 30 mL of saline. This was injected circumferentially around the capsule. Two batches of Diana cement were mixed under vacuum conditions. This was then placed on the components and on the dried bony surfaces. The tibial components applied first and then femoral component. The knee was put in full extension with the 10 mm trial spacer. The patellar button was held with a clamp. The knee was held in full extension, tourniquet released. Excess cement was trimmed off with a [place] elevator. Hemostasis was obtained with electrocautery. When all cement had hardened, the knee was thoroughly irrigated. There was no excess cement that needed to be trimmed up. The knee was stable still and therefore, the 10 mm polyethylene was locked into the tray with good range of motion, stability as before, good patellar tracking. The knee was irrigated again, then, the medial parapatellar approach was closed with some interrupted #2 MaxBraid suture and then a running #1 Stratafix suture was placed using standard technique. The subcutaneous tissue was closed with 2-0 Vicryl and the skin with guerrero. A sterile dressing was applied. ESTIMATED BLOOD LOSS: 100 mL. FLUIDS: Per the anesthesia record. SPECIMENS: None. DRAINS: None. COMPLICATIONS: None. PLAN: The plan is for patient to go home if he does well with therapy today. He will be seen back in 10 to 12 days for staple removal. He will resume his aspirin for DVT prophylaxis and will have Keflex for 5 days, Percocet for pain.
== END 2024-02-26 19:15 | disposition home or self-care (01) ==
LOC: SDC 06:11 → MED SURG 12:45 → SDC 19:15
PROVIDERS: ATTEND Orthopaedic Surgery
DX: M17.12 Unilateral primary osteoarthritis, left knee (principal); M25.562 Pain in left knee; E11.9 Type 2 diabetes mellitus without complications
CPT/HCPCS: 27447; 73560; 76937; 82947; C1713; C1776; J0330; J0690; J2250; J2405; J2704; J3010; A9270-GY

== ENCOUNTER 2024-05-19 06:59 | Day surgery (SDC) | payer MEDICARE ==
[2024-05-19] MEDS ORDERED: Sodium Chloride 0.9% 10 ML FLUSH Syringe IJ ONE (07:00)
[2024-05-19] MEDS ORDERED: BETADINE 5% OPHTHALMIC 30 ML OP ONE (07:00)
[2024-05-19] MEDS ORDERED: TRIAMCINOLONE 15 MG/ML INJ INTRAOP ONE (07:00)
[2024-05-19] MEDS ORDERED: VIGAMOX/BSS 0.15% SYR IO ONE (07:00)
[2024-05-19] MEDS: TETRACAINE 0.5% STERI-UNIT SOL OP ONE ×2 (07:36→08:09)
[2024-05-19] MEDS: Ak-Dilate OPHTHALMIC*** 1.065 ML, Cyclogyl 1% OPHTH SOL 1.065 ML, GATIFLOXACIN 0.5% OPH... OP ONE (07:36)
[2024-05-19 07:37] LABS: Hematocrit 42.6 % (40.1-51.0); Hemoglobin 14.3 g/dL (13.7-17.5); Mean Cell Volume 89.3 fL (79.0-92.2); Mean Corpuscular Hgb Concent. 33.6 g/dL (32.3-36.5); Mean Platelet Volume 9.5 fL (9.4-12.4); Platelet Count 243 x10^3/uL (163-337); Red Blood Count 4.77 x10^6/uL (4.63-6.08); Red Cell Distribution Width 12.8 % (11.6-14.4); White Blood Count 7.3 x10^3/uL (4.23-9.07)
[2024-05-19 07:49] LABS: ANION GAP 10.6 MEQ/L (5-15); Calcium 10.1 mg/dL (8.4-10.2); Creatinine 1 0.93 mg/dL (0.66-1.25); Potassium 4.1 mmol/L (3.5-5.1)
[2024-05-19] MEDS ORDERED: Zofran 4 MG/2 ML VIAL IV PRN (09:00)
[2024-05-19] MEDS ORDERED: Epinephrine Preservative Free 1 MG/ML IJ ONE (09:00)
[2024-05-19] MEDS ORDERED: DEXMEDETOMIDINE 80 MCG/20ML-NS IV ONE (09:00)
[2024-05-19] MEDS ORDERED: propofoL IV ONE (10:10)
[2024-05-19] MEDS: ACETAZOLAMIDE 250 MG TABLET PO ONE (10:36)
[2024-05-19 10:40] VITALS: RESP 16
[2024-05-19 10:48] VITALS: BP 122/79; PULSE 68; O2SAT 96
[2024-05-19 10:51] VITALS: TEMP 98.3
== END 2024-05-19 11:04 | disposition home or self-care (01) ==
LOC: SDC 06:59
PROVIDERS: ATTEND Ophthalmology
DX: H25.812 Combined forms of age-related cataract, left eye (principal); I10 Essential (primary) hypertension
CPT/HCPCS: 36415; 80048; 85027; 93005; C1780; J0171; J2704; A9270-GY

== ENCOUNTER 2024-07-01 02:55 | Observation (INO) | payer MEDICARE ==
[2024-07-01 04:26] LABS: ALBUMIN 4.2 g/dL (3.5-5.0); ANION GAP 14.6 MEQ/L (5-15); BILIRUBIN,TOTAL 0.6 mg/dL (0.2-1.3); Calcium 10.4 mg/dL (8.4-10.2); Creatinine 1 0.86 mg/dL (0.66-1.25); EST GLOMERULAR FILTRATION RATE 94.3 ML/MIN; Potassium 3.9 mmol/L (3.5-5.1); Total Protein 6.7 g/dL (6.3-8.2)
[2024-07-01 04:34] LABS: Absolute Neutrophil Ct (ANC) 4.12 x10^3/uL (1.78-5.38); BASOPHIL % 0.7 % (0.2-1.2); Basophil (Absolute #) 0.06 x10^3/uL (0.01-0.08); Eosinophil (Absolute #) 0.67 x10^3/uL (0.04-0.54); Hematocrit 45.9 % (40.1-51.0); Hemoglobin 15.3 g/dL (13.7-17.5); IMMATURE GRAN # 0.03 x10^3u/L (0.001-0.031); IMMATURE GRAN % 0.4 % (0.001-0.429); Lymphocyte (Absolute #) 2.66 x10^3/uL (1.32-3.57); Lymphocytes % 31.8 % (21.8-53.1); Mean Corpuscular Hemoglobin 29.7 pg (25.7-32.2); Mean Corpuscular Hgb Concent. 33.3 g/dL (32.3-36.5); Mean Platelet Volume 10.2 fL (9.4-12.4); Monocyte (Absolute #) 0.82 x10^3/uL (0.30-0.82); Monocytes % 9.8 % (5.3-12.2); Neutrophil % 49.3 % (34.0-67.9); Platelet Count 270 x10^3/uL (163-337); Red Blood Count 5.16 x10^6/uL (4.63-6.08); Red Cell Distribution Width 13.1 % (11.6-14.4); White Blood Count 8.4 x10^3/uL (4.23-9.07)
[2024-07-01 04:38] LABS: NT PRO BNPII 67.8 pg/mL (<300); TROPONIN < 0.012 ng/mL (0.000-0.033)
--- NOTE | 2024-07-01 04:38 | ERPHSYRPT ---
- History of Present Illness Time Seen by Provider: 07/01/24 04:34 Historian: patient Exam Limitations: no limitations Patient Subjective Stated Complaint: c/o chest pain Triage Nursing Assessment: patient brought to ED by with c/o chest pain that started around midnight. patient rates pain 4/10. states the pain is a sharp. burning pain in his left chest that radiates into left arm. Patient has a cardiac history. skin w/n/d, faint heart sounds, pulses normal, afebrile, has an occasional cough, patient doesn't appear to be in any distress at this time. Physician History: 69-year-old male BMI of 44.3 history of diabetes, COPD, asthma, high cholesterol, coronary artery disease, [place] presents to [place] ED for evaluation of chest pain. Patient reports chest pain started right around midnight. Chest pain radiating to his neck and left arm. Pain described as a sharp burning sensation. No associated nausea vomiting or diaphoresis. No trauma no fever. Symptoms are mild to moderate in intensity. No specific worsening or improving factors. at bedside. They voiced no other complaints or concerns at this time. Portions of this note were created with voice recognition technology. There may be grammatical, spelling, punctuation or sound alike errors Timing/Duration: today Activities at Onset: none Quality: sharpness Location: other (Left chest) Chest Pain Radiation: neck, arm Severity of Pain-Max: moderate Severity of Pain-Current: mild Modifying Factors: Improves With: nothing Associated Symptoms: denies symptoms Prior Chest Pain/Cardiac Workup: cardiac cath Nitro Today/Relief: no nitro taken today Aspirin Treatment Today: no aspirin today Allergies/Adverse Reactions: nifedipine [From Procardia] Allergy (Verified 07/01/24 03:17) Swelling of Feet Sziysqa-TYB-EnM Reductase Inhibitor Allergy (Verified 07/01/24 03:17) cramps Home Medications: Glimepiride 2 mg [Amaryl 2 MG] 4 mg PO QAM 11/29/13 [History] Montelukast Sodium 10 mg [Singulair 10 MG] 10 mg PO QPM 02/08/20 [History] Ezetimibe 10 mg [Zetia 10 MG] 10 mg PO DAILY 09/22/20 [History] Lisinopril/Hydrochlorothiazide [Lisinopril-Hctz 20-12.5 mg Tab] 1 each PO DAILY 09/22/20 [History] Multivitamin 1 each PO DAILY 09/24/23 [History] Omeprazole 20 mg PO DAILY 09/24/23 [History] Aspirin EC 81 mg [Ecotrin 81 mg] 81 mg PO DAILY 02/10/24 [History] Semaglutide [Ozempic] 1 mg SQ UD 02/26/24 [History] Hx Tetanus, Diphtheria Vaccination/Date Given: Yes Hx Influenza Vaccination/Date Given: Yes Hx Pneumococcal Vaccination/Date Given: Yes Travel Risk - International Travel Have you traveled outside of the country in past 3 weeks: No - Emerging Infectious Disease Are you exhibiting symptoms associated with any current EIDs: No - Review of Systems Constitutional: No Symptoms, No Fever, No Chills Eyes: No Symptoms Ears, Nose, & Throat: No Symptoms Respiratory: No Symptoms, No Cough, No Dyspnea Cardiac: No Symptoms, No Chest Pain, No Edema, No Syncope Abdominal/Gastrointestinal: No Symptoms, No Abdominal Pain, No Nausea, No Vomiting, No Diarrhea Genitourinary Symptoms: No Symptoms, No Dysuria Musculoskeletal: No Symptoms, No Back Pain, No Neck Pain Skin: No Symptoms, No Rash Neurological: No Symptoms, No Dizziness, No Focal Weakness, No Sensory Changes Psychological: No Symptoms Endocrine: No Symptoms Hematologic/Lymphatic: No Symptoms Immunological/Allergic: No Symptoms All Other Systems: Reviewed and Negative - Past Medical History Pertinent Past Medical History: Yes Neurological History: Peripheral Neuropathy ENT History: Cataracts Cardiac History: Coronary Artery Disease, High Cholesterol, Hypertension, Myocardial Infarction ([place]) Respiratory History: Asthma, COPD, Pulmonary Embolism, Sleep Apnea Endocrine Medical History: Diabetes Type II Musculoskeletal History: Arthritis GI Medical History: GERD History: No Pertinent History Psycho-Social History: Anxiety, Depression Male Reproductive Disorders: No Pertinent History Other Medical History: R/L SHOULDER ROTATOR CUFF, HE REPORTS HE NEEDS HIS L SHOULDER REPLACED. HX OF PE, DIVERTICULAR DISEASE, GERD, DEPRESSION, THORACIC SPONDYLOSIS, LEFT VENTICULAR HYPERTROPHY, PVD, COVID-19, L knee and foot surgery - Past Surgical History Past Surgical History: Yes Neuro Surgical History: No Pertinent History Cardiac: Cardiac Catheterization Respiratory: No Pertinent History Gastrointestinal: Hernia Repair Genitourinary: No Pertinent History Musculoskeletal: Other Male Surgical History: No Pertinent History Other Surgical History: RT SHOULDER INJURY THAT CAUSES PT PAIN, left shoulder rotator cuff repair,ruptured,states 5 cardiac cath Significant Family History: cancer - Social History Smoking Status: Never smoker Exposure to second hand smoke: No Drug Use: none - Social Determinants of Health Will the patient participate in the screening: Yes Do you worry about a steady place to live?: No Do you have any problems with any of the following?: No known problems In the past 12 months,have you had to go without utilities?: No Transportation Issues: No Has anyone in your support network made you feel unsafe?: No Have you or anyone in your house had to go w/o enough food: No - Nursing Vital Signs Nursing Vital Signs: Initial Vital Signs Temperature 98.4 F 07/01/24 03:03 Pulse Rate 70 07/01/24 03:03 Respiratory Rate 15 07/01/24 03:03 Blood Pressure 184/126 07/01/24 03:03 O2 Sat by Pulse Oximetry 98 07/01/24 03:03 Pain Scale Pain Intensity 4 - Physical Exam General Appearance: no apparent distress, alert Eye Exam: PERRL/EOMI, eyes nml inspection Ears, Nose, Throat Exam: normal ENT inspection, moist mucous membranes Neck Exam: normal inspection, non-tender, supple, full range of motion Respiratory Exam: normal breath sounds, lungs clear, airway intact, No respirat ory distress Cardiovascular Exam: regular rate/rhythm, normal heart sounds Gastrointestinal/Abdomen Exam: soft, No tenderness, No mass Back Exam: normal inspection, No CVA tenderness, No vertebral tenderness Extremity Exam: normal inspection, normal range of motion Neurologic Exam: alert, oriented x 3, cooperative, normal mood/affect, sensation nml, No motor deficits Skin Exam: normal color, warm, dry SpO2 Interpretation: normal SpO2: 96 O2 Delivery: Room Air - Course Nursing assessment & vital signs reviewed: Yes EKG Interpreted by Me: RATE (69), Sinus Rhythm, NORMAL AXIS, NORMAL INTERVALS, Right Bundle Branch Block - CT Exams Chest CT Interpretation: Tele-radiologist Report (Thyroid nodules fatty liver otherwise no acute findings. No PE) Ordered Tests: Active Orders 24 hr Category Date Time Status Hplc Chemist STAT Care 07/01/24 04:06 Active EKG-ER Only STAT Care 07/01/24 04:06 Active IV Insertion STAT Care 07/01/24 04:06 Active Pulse Oximetry (ED) STAT Care 07/01/24 04:06 Active CHEST WITH CONTRAST [CT] Stat Exams 07/01/24 05:10 Completed CBC W DIFF Stat Lab 07/01/24 04:17 Completed CMP Stat Lab 07/01/24 04:17 Completed D-DIMER QUANTITATIVE Stat Lab 07/01/24 04:17 Completed NT PRO BNPII Stat Lab 07/01/24 04:17 Completed TROPONIN Q4H Lab 07/01/24 04:17 Completed TROPONIN Q4H Lab 07/01/24 08:15 Ordered TROPONIN Q4H Lab 07/01/24 12:15 Ordered Medication Summary Discontinued Medications Generic Name Dose Route Start Last Admin Trade Name Freq PRN Reason Stop Dose Admin Aspirin 324 mg 07/01/24 04:42 07/01/24 04:47 Aspirin 81 Mg Tab.Chew PO 07/01/24 04:43 324 mg STAT ONE Administration Aspirin Confirm 07/01/24 04:46 Aspirin 81 Mg Tab.Chew Administered 07/01/24 04:47 Dose 324 mg .ROUTE .STK-MED ONE Nitroglycerin 1 gm 07/01/24 04:41 07/01/24 04:47 Nitroglycerin 1 Gm Packet TOP 07/01/24 04:42 1 gm STAT ONE Administration Nitroglycerin Confirm 07/01/24 04:46 Nitroglycerin 1 Gm Packet Administered 07/01/24 04:47 Dose 1 gm .ROUTE .STK-MED ONE Lab/Rad Data: Laboratory Result Diagrams 07/01/24 04:17 07/01/24 04:17 Laboratory Results 07/01/24 07/01/24 07/01/24 Range/Units 04:17 04:17 04:17 WBC (4.23-9.07) x10^3/uL RBC (4.63-6.08) x10^6/uL Hgb (13.7-17.5) g/dL Hct (40.1-51.0) % MCV (79.0-92.2) fL MCH (25.7-32.2) pg MCHC (32.3-36.5) g/dL RDW (11.6-14.4) % Plt Count (163-337) x10^3/uL MPV (9.4-12.4) fL Gran % (34.0-67.9) % Immature Gran % (Auto) (0.001-0.429) % Nucleat RBC Rel Count (0.00-0.2) % Eos # (Auto) (0.04-0.54) x10^3/uL Immature Gran # (Auto) (0.001-0.031) x10^3u/L Absolute Lymphs (auto) (1.32-3.57) x10^3/uL Absolute Monos (auto) (0.30-0.82) x10^3/uL Absolute Nucleated RBC (0.00-0.012) x10^3u/L Lymphocytes % (21.8-53.1) % Monocytes % (5.3-12.2) % Eosinophils % (0.8-7.0) % Basophils % (0.2-1.2) % Absolute Granulocytes (1.78-5.38) x10^3/uL Basophils # (0.01-0.08) x10^3/uL D-Dimer 1.95 H* (0.0-0.50) mg/L Sodium 140 (135-145) mmol/L Potassium 3.9 (3.5-5.1) mmol/L Chloride 100 (98-107) mmol/L Carbon Dioxide 29 (22-30) mmol/L Anion Gap 14.6 (5-15) MEQ/L BUN 17 (9-20) mg/dL Creatinine 0.86 (0.66-1.25) mg/dL Estimated GFR 94.3 ML/MIN Glucose 138 H (74-106) mg/dL Calcium 10.4 H (8.4-10.2) mg/dL Total Bilirubin 0.60 (0.2-1.3) mg/dL AST 51 (17-59) U/L ALT 29 (0-50) U/L Alkaline Phosphatase 105 (38-126) U/L Troponin I < 0.012 (0.000-0.033) ng/mL NT-Pro-B Natriuret Pep 67.8 (<300) pg/mL Serum Total Protein 6.7 (6.3-8.2) g/dL Albumin 4.2 (3.5-5.0) g/dL // Range/Units 04:17 WBC 8.4 (4.23-9.07) x10^3/uL RBC 5.16 (4.63-6.08) x10^6/uL Hgb 15.3 (13.7-17.5) g/dL Hct 45.9 (40.1-51.0) % MCV 89.0 (79.0-92.2) fL MCH 29.7 (25.7-32.2) pg MCHC 33.3 (32.3-36.5) g/dL RDW 13.1 (11.6-14.4) % Plt Count 270 (163-337) x10^3/uL MPV 10.2 (9.4-12.4) fL Gran % 49.3 (34.0-67.9) % Immature Gran % (Auto) 0.4 (0.001-0.429) % Nucleat RBC Rel Count 0.0 (0.00-0.2) % Eos # (Auto) 0.67 H (0.04-0.54) x10^3/uL Immature Gran # (Auto) 0.03 (0.001-0.031) x10^3u/L Absolute Lymphs (auto) 2.66 (1.32-3.57) x10^3/uL Absolute Monos (auto) 0.82 (0.30-0.82) x10^3/uL Absolute Nucleated RBC 0.00 (0.00-0.012) x10^3u/L Lymphocytes % 31.8 (21.8-53.1) % Monocytes % 9.8 (5.3-12.2) % Eosinophils % 8.0 H (0.8-7.0) % Basophils % 0.7 (0.2-1.2) % Absolute Granulocytes 4.12 (1.78-5.38) x10^3/uL Basophils # 0.06 (0.01-0.08) x10^3/uL D-Dimer (0.0-0.50) mg/L Sodium (135-145) mmol/L Potassium (3.5-5.1) mmol/L Chloride (98-107) mmol/L Carbon Dioxide (22-30) mmol/L Anion Gap (5-15) MEQ/L BUN (9-20) mg/dL Creatinine (0.66-1.25) mg/dL Estimated GFR ML/MIN Glucose (74-106) mg/dL Calcium (8.4-10.2) mg/dL Total Bilirubin (0.2-1.3) mg/dL AST (17-59) U/L ALT (0-50) U/L Alkaline Phosphatase (38-126) U/L Troponin I (0.000-0.033) ng/mL NT-Pro-B Natriuret Pep (<300) pg/mL Serum Total Protein (6.3-8.2) g/dL Albumin (3.5-5.0) g/dL - Progress Progress: improved Air Movement: good Progress Note: 69-year-old male BMI of 44.3 history of diabetes hypertension hypercholesterolemia [place] presents for emergency department for evaluation of chest pain radiating to his neck and shoulder. Physical exam essentially nonremarkable. Preliminary workup negative. Distal troponin negative. D-dimer positive. CTA chest negative. Patient received aspirin and nitroglycerin. Pain appears improved with nitroglycerin. Patient's heart score is 4. Patient will require hospitalization for further evaluation and treatment. Plan of care discussed with patient. He agrees to admission at [facility] for further evaluation and treatment. Portions of this note were created with voice recognition technology. There may be grammatical, spelling, punctuation or sound alike errors Complexity of problem addressed is moderate acute complicated. No critical care time. Complex of data reviewed analyzes tensive. Test ordered test reviewed results analyzed and correlated clinically with history and physical exam. Risk of complication and or risk of morbidity/mortality of patient management is high. Patient requires hospitalization for further evaluation and treatment. Vital stable. Time spent admit patient is approximately 15 minutes. Plan of care established for shared decision making. No social determinants of health present to impede follow-up. Portions of this note were created with voice recognition technology. There may be grammatical, spelling, punctuation or sound alike errors 07/01/24 06:[address] Khan at 7:08 AM. Patient accepted for admission to observation pending second troponin. 07/01/24 07:08 Blood Culture(s) Obtained: No Antibiotics given: No Counseled pt/family regarding: lab results, diagnosis, rad results - Departure Departure Disposition: Observation Clinical Impression: ACS (acute coronary syndrome), Chest pain, Thyroid nodule Condition: Stable Critical Care Time: No Referrals: LINDY ENAMORADO MD [Primary Care Provider] - Follow up/PCP as directed
[2024-07-01] MEDS ORDERED: BABY ASPIRIN 81 MG CHEW ONE (04:46)
[2024-07-01] MEDS ORDERED: NITRO-BID 2% UD PACKETS ONE (04:46)
[2024-07-01] MEDS: NITRO-BID 2% UD PACKETS TOP ONE (04:47)
[2024-07-01] MEDS: BABY ASPIRIN 81 MG CHEW PO ONE (04:47)
--- NOTE | 2024-07-01 06:29 | XRAY ---
CLINICAL HISTORY: pain, sob, + dimer COMPARISON: Prior 10/12/2022, the x-ray was checked. TECHNIQUE: Contiguous 3.[address] images of the chest were acquired with administration of intravenous contrast. Coronal and sagittal reconstructions were obtained. Contrast was administered for post-contrast images. One of the following dose reduction techniques was utilized for this exam: Automated exposure control, adjustment of the mA and/or kV according to patient size, and use of iterative reconstruction. FINDINGS: Lungs: Lungs are clear with no evidence of consolidation, collapse, or focal lesions. Minimal basal subpleural reticulations, likely senile related. No ground-glass opacities or interstitial changes. No pleural effusion or pleural thickening. A small fat pad is seen extending to the left oblique fissure. Mediastinum: A small reactive retrocaval lymph node is seen. Normal appearance of the thymus. Hilar Structures: Normal size and configuration, no enlargement. Heart and Great Vessels: Normal heart size and configuration. Diffuse coronary atherosclerotic changes were noted. No pericardial effusion. Normal caliber and course of the thoracic aorta and other great vessels. No significant atherosclerosis or aneurysm. Normal enhancement of the great vessels post-contrast. Pulmonary Arteries: No evidence of pulmonary embolism. Normal size and course of the pulmonary arteries. Esophagus: Normal course and caliber. No masses or dilatation. Bones: No fractures or lytic/sclerotic lesions. Normal bone density and alignment. No evidence of rib fractures. Chest Wall: No masses or soft tissue abnormalities. Upper Abdomen: Fatty liver. Visualized portions of the spleen, pancreas, adrenal glands, and kidneys are normal. No abnormalities were noted in the visualized upper abdominal organs. Thyroid: Enlarged right thyroid lobe with several small hypodense nodules noted. Normal size and morphology. No nodules or masses. IMPRESSION: 1. No signs of pulmonary embolism were noted. 2. No gross pulmonary abnormality was depicted. 3. The right thyroid lobe has several small hypodense nodules, further US assessment is advised. 4. No significant interval changes. Electronically Signed by: Corry Gill MD. (07/01/2024 06:24:00 EST)
[2024-07-01] MEDS: Zestril 20 MG*** 20 MG, hydroDIURIL 25 MG*** 12.5 MG PO STA (07:32)
[2024-07-01 08:15] LABS: INFLUENZA A NEGATIVE (NEGATIVE); INFLUENZA B NEGATIVE (NEGATIVE); RESPIRATORY SYNCTIAL VIRUS NEGATIVE (NEGATIVE); SARS-CoV-2 Xpert Express NEGATIVE (NEGATIVE)
--- NOTE | 2024-07-01 10:19 | PCM.HP ---
<NATHAN CHAMPAGNE - Last Filed: 07/01/24 11:25> History of Present Illness - Chief Complaint Chief Complaint: Chest pain Date: 07/01/24 History of Present Illness: is a 69 year old male with a pmhx of DMII, COPD (RA at baseline), Obesity, HLD, SD, PE (not on anticoagulation), ALEXANDER (CPAP), Gerd, and anxiety who presented to ED 07/01/24 with complaints of chest pain. Onset was 06/30/24 around 11 p.m. Patient states that he was doing arm exercises with dumbells when he began to experience left-sided constant chest pain. He describes that pain as sharp and tight with associated shortness of breath. No aggravating/relieving factors. He reports home blood pressure was 239/191. He is somewhat of a poor historian but reports that he has had 4-5 cardiac caths - most recent over 20 years ago. No stent placement. He reports h/o SD that showed up on an EKG as age indeterminate. He also states he has angina. He follows with Dr. Posadas (cardiology). Upon arrival to ED patient was hypertensive with BP initially at 184/126. EKG NS with RBBB. DDimer elevated and CT chest performed and demonstrates no signs of pulmonary embolism. No gross pulmonary abnormality was depicted. The right thyroid lobe has several small hypodense nodules, further US assessment is advised. Troponins x 2 WNL. CMP/CBC unremarkable. Respiratory panel negative. Patient given ASA/Nitro/ Lisinopril in ED. BP now stable at 123/91. Admit for chest pain with continued troponins and observation. - Review of Systems Constitutional: No Symptoms Eyes: No Symptoms Ears, Nose, & Throat: No Symptoms Respiratory: Short Of Breath Cardiac: Chest Pain Abdominal/Gastrointestinal: No Symptoms Genitourinary Symptoms: No Symptoms Musculoskeletal: No Symptoms Skin: No Symptoms Neurological: No Symptoms Psychological: No Symptoms Endocrine: No Symptoms Hematologic/Lymphatic: No Symptoms Immunological/Allergic: No Symptoms Medications & Allergies Home Medications: Home Medication List Glimepiride 2 mg [Amaryl 2 MG] 4 mg PO QAM 11/29/13 [History Confirmed 07/01/24] Montelukast Sodium 10 mg [Singulair 10 MG] 10 mg PO DAILY 02/08/20 [History Confirmed 07/01/24] Ezetimibe 10 mg [Zetia 10 MG] 10 mg PO HS 09/22/20 [History Confirmed 07/01/24] Lisinopril/Hydrochlorothiazide [Lisinopril-Hctz 20-12.5 mg Tab] 1 each PO DAILY 09/22/20 [History Confirmed 07/01/24] Multivitamin 1 each PO DAILY 09/24/23 [History Confirmed 07/01/24] Omeprazole 20 mg PO DAILY 09/24/23 [History Confirmed 07/01/24] Aspirin EC 81 mg [Ecotrin 81 mg] 81 mg PO DAILY 02/10/24 [History Confirmed 07/01/24] Semaglutide [Ozempic] 0.5 mg SQ UD 02/26/24 [History Confirmed 07/01/24] Allergies/Adverse Reactions: Allergies Allergy/AdvReac Type Severity Reaction Status Date / Time nifedipine [From Procardia] Allergy Swelling Verified 07/01/24 03:17 of Feet [id number] Reductase Allergy cramps Verified 07/01/24 09:18 Inhibitor - Past Medical History Past Medical History: Yes Neurological History: Peripheral Neuropathy ENT History: Cataracts Cardiac History: Angina, Coronary Artery Disease, High Cholesterol, Hypertension, Myocardial Infarction (SD) Respiratory History: Asthma, COPD, Pulmonary Embolism, Sleep Apnea Endocrine Medical History: Diabetes Type II Musculoskelatal History: Arthritis GI Medical History: GERD History: No Pertinent History Pyscho-Social History: Anxiety, Depression Male Reproductive Disorders: No Pertinent History Comment: R/L SHOULDER ROTATOR CUFF, HE REPORTS HE NEEDS HIS L SHOULDER REPLACED. HX OF PE, DIVERTICULAR DISEASE, GERD, DEPRESSION, THORACIC SPONDYLOSIS, LEFT VENTICULAR HYPERTROPHY, PVD, COVID-19, L knee and foot surgery - Past Surgical History Past Surgical History: Yes Neuro Surgical History: No Pertinent History Cardiac History: Cardiac Catheterization Respiratory Surgery: No Pertinent History GI Surgical History: Hernia Repair Genitourinary Surgical Hx: No Pertinent History Musculskeletal Surgical Hx: Other Male Surgical History: No Pertinent History Other Surgical History: RT SHOULDER INJURY THAT CAUSES PT PAIN, left shoulder rotator cuff repair,ruptured,states 5 cardiac cath Significant Family History: heart disease, cancer, stroke - Social History Smoking Status: Never smoker Exposure to second hand smoke: No Alcohol: None Drug Use: none - Social Determinants of Health Will the patient participate in the screening: Yes Do you worry about a steady place to live?: No Do you have any problems with any of the following?: No known problems In the past 12 months,have you had to go without utilities?: No Have you or anyone in your house had to go without enough: No Transportation Issues: No Has anyone in your support network made you feel unsafe?: No - Physical Exam Vital Signs: Vital Signs - 24 hr Temp Pulse Resp BP BP Pulse Ox 07/01/24 08:00 58 L 13 123/91 97 07/01/24 07:59 73 14 117/95 97 07/01/24 07:30 75 16 166/82 96 07/01/24 07:28 65 14 174/149 98 07/01/24 07:10 96 07/01/24 07:01 55 L 14 163/87 95 07/01/24 06:30 62 14 159/117 95 07/01/24 06:00 60 14 165/105 97 07/01/24 05:43 65 16 178/88 96 07/01/24 05:00 64 15 179/106 97 07/01/24 04:30 65 15 177/84 98 07/01/24 04:11 96 07/01/24 04:00 63 17 185/144 96 07/01/24 03:03 98.4 F 70 15 184/126 98 General Appearance: no apparent distress, obese Neurologic Exam: alert, oriented x 3, cooperative Eye Exam: PERRL/EOMI Ears, Nose, Throat Exam: normal ENT inspection Neck Exam: normal inspection Respiratory Exam: normal breath sounds, lungs clear Cardiovascular Exam: regular rate/rhythm, normal heart sounds Gastrointestinal/Abdomen Exam: soft, normal bowel sounds Rectal Exam: deferred Back Exam: normal inspection Extremity Exam: normal inspection Skin Exam: normal color Results - Labs Lab/Micro Results: Lab Results-Last 24 Hours 07/01/24 07/01/24 07/01/24 Range/Units 04:17 04:17 04:17 WBC 8.4 (4.23-9.07) x10^3/uL RBC 5.16 (4.63-6.08) x10^6/uL Hgb 15.3 (13.7-17.5) g/dL Hct 45.9 (40.1-51.0) % MCV 89.0 (79.0-92.2) fL MCH 29.7 (25.7-32.2) pg MCHC 33.3 (32.3-36.5) g/dL RDW 13.1 (11.6-14.4) % Plt Count 270 (163-337) x10^3/uL MPV 10.2 (9.4-12.4) fL Gran % 49.3 (34.0-67.9) % Immature Gran % (Auto) 0.4 (0.001-0.429) % Nucleat RBC Rel Count 0.0 (0.00-0.2) % Eos # (Auto) 0.67 H (0.04-0.54) x10^3/uL Immature Gran # (Auto) 0.03 (0.001-0.031) x10^3u/L Absolute Lymphs (auto) 2.66 (1.32-3.57) x10^3/uL Absolute Monos (auto) 0.82 (0.30-0.82) x10^3/uL Absolute Nucleated RBC 0.00 (0.00-0.012) x10^3u/L Lymphocytes % 31.8 (21.8-53.1) % Monocytes % 9.8 (5.3-12.2) % Eosinophils % 8.0 H (0.8-7.0) % Basophils % 0.7 (0.2-1.2) % Absolute Granulocytes 4.12 (1.78-5.38) x10^3/uL Basophils # 0.06 (0.01-0.08) x10^3/uL D-Dimer 1.95 H* (0.0-0.50) mg/L Sodium 140 (135-145) mmol/L Potassium 3.9 (3.5-5.1) mmol/L Chloride 100 (98-107) mmol/L Carbon Dioxide 29 (22-30) mmol/L Anion Gap 14.6 (5-15) MEQ/L BUN 17 (9-20) mg/dL Creatinine 0.86 (0.66-1.25) mg/dL Estimated GFR 94.3 ML/MIN Glucose 138 H (74-106) mg/dL Calcium 10.4 H (8.4-10.2) mg/dL Total Bilirubin 0.60 (0.2-1.3) mg/dL AST 51 (17-59) U/L ALT 29 (0-50) U/L Alkaline Phosphatase 105 (38-126) U/L Troponin I (0.000-0.033) ng/mL NT-Pro-B Natriuret Pep (<300) pg/mL Serum Total Protein 6.7 (6.3-8.2) g/dL Albumin 4.2 (3.5-5.0) g/dL Influenza Type A Ag (NEGATIVE) Influenza Type B Ag (NEGATIVE) RSV (PCR) (NEGATIVE) SARS-CoV-2 (PCR) (NEGATIVE) 07/01/24 07/01/24 07/01/24 Range/Units 04:17 07:18 07:35 WBC (4.23-9.07) x10^3/uL RBC (4.63-6.08) x10^6/uL Hgb (13.7-17.5) g/dL Hct (40.1-51.0) % MCV (79.0-92.2) fL MCH (25.7-32.2) pg MCHC (32.3-36.5) g/dL RDW (11.6-14.4) % Plt Count (163-337) x10^3/uL MPV (9.4-12.4) fL Gran % (34.0-67.9) % Immature Gran % (Auto) (0.001-0.429) % Nucleat RBC Rel Count (0.00-0.2) % Eos # (Auto) (0.04-0.54) x10^3/uL Immature Gran # (Auto) (0.001-0.031) x10^3u/L Absolute Lymphs (auto) (1.32-3.57) x10^3/uL Absolute Monos (auto) (0.30-0.82) x10^3/uL Absolute Nucleated RBC (0.00-0.012) x10^3u/L Lymphocytes % (21.8-53.1) % Monocytes % (5.3-12.2) % Eosinophils % (0.8-7.0) % Basophils % (0.2-1.2) % Absolute Granulocytes (1.78-5.38) x10^3/uL Basophils # (0.01-0.08) x10^3/uL D-Dimer (0.0-0.50) mg/L Sodium (135-145) mmol/L Potassium (3.5-5.1) mmol/L Chloride (98-107) mmol/L Carbon Dioxide (22-30) mmol/L Anion Gap (5-15) MEQ/L BUN (9-20) mg/dL Creatinine (0.66-1.25) mg/dL Estimated GFR ML/MIN Glucose (74-106) mg/dL Calcium (8.4-10.2) mg/dL Total Bilirubin (0.2-1.3) mg/dL AST (17-59) U/L ALT (0-50) U/L Alkaline Phosphatase (38-126) U/L Troponin I < 0.012 < 0.012 (0.000-0.033) ng/mL NT-Pro-B Natriuret Pep 67.8 (<300) pg/mL Serum Total Protein (6.3-8.2) g/dL Albumin (3.5-5.0) g/dL Influenza Type A Ag NEGATIVE (NEGATIVE) Influenza Type B Ag NEGATIVE (NEGATIVE) RSV (PCR) NEGATIVE (NEGATIVE) SARS-CoV-2 (PCR) NEGATIVE (NEGATIVE) - Radiology Impressions Radiology Exams & Impressions: Radiology Procedures Category Date Time Status CHEST WITH CONTRAST [CT] Stat Exams 07/01/24 05:10 Completed Assessment/Plan (1) Chest pain Current Visit: Yes Status: Acute Assessment & Plan: -EKG reviewed NS with RBBB -Trops x 2 negative - trend -Nitro/Morphine for pain control -BNP reviewed WNL -EKG in a.m. -DDimer elevated -CT chest reviewed with no cardiopulmonary abnormalities - no PE -Follows with Dr. Posadas -may need OP evaluation stress test/cath - will set up appt -continue ASA Code(s): R07.9 - CHEST PAIN, UNSPECIFIED (2) HLD (hyperlipidemia) Current Visit: Yes Status: Acute Assessment & Plan: -Continue zetia - patient with allergies to statin Code(s): E78.5 - HYPERLIPIDEMIA, UNSPECIFIED (3) COPD (chronic obstructive pulmonary disease) Current Visit: Yes Status: Acute Assessment & Plan: -CT scan as stated above - On RA -continue home meds - does not appear to be in exacerbation (4) History of pulmonary embolism Current Visit: Yes Status: Acute Assessment & Plan: -Patient states he is no longer on anticoagulation Code(s): Z86.711 - PERSONAL HISTORY OF PULMONARY EMBOLISM (5) Anxiety and depression Current Visit: Yes Status: Acute Assessment & Plan: -Noted, does not take home meds Code(s): F41.9 - ANXIETY DISORDER, UNSPECIFIED; F32.A - DEPRESSION, UNSPECIFIED (6) Thyroid nodule Current Visit: Yes Status: Acute Assessment & Plan: -As seen on CT imaging - will refer to PCP for evaluation as OP -TSH Code(s): E04.1 - NONTOXIC SINGLE THYROID NODULE (7) Coronary artery disease Current Visit: No Status: Acute Qualifiers: Coronary Disease-Associated Artery/Lesion type: unspecified vessel or lesion type [place] vs. transplanted heart: [place] heart Associated angina: with stable angina Qualified Code(s): I25.119 - Atherosclerotic heart disease of [place] coronary artery with unspecified angina pectoris Assessment & Plan: -H/o 4-5 cardiac caths - no stent placement -Follows with Dr. Posadas Code(s): I25.10 - ATHSCL HEART DISEASE OF [place] CORONARY ARTERY W/O ANG PCTRS (8) Morbid obesity with BMI of 50.0-59.9, adult Current Visit: No Status: Acute Assessment & Plan: -Advised diet/exercise - Follow ADA diet Code(s): Z68.43 - BODY M[place] INDEX [BMI] 50.0-59.9, ADULT (9) Obstructive sleep apnea Current Visit: No Status: Acute Assessment & Plan: -CPAP - RT Code(s): G47.33 - OBSTRUCTIVE SLEEP APNEA (ADULT) (PEDIATRIC) (10) Type 2 diabetes mellitus Current Visit: No Status: Acute Assessment & Plan: -ADA diet -SSI -A1c VTE: lovenox PPI: protonix Dispo: tomorrow pending evaluation (11) Essential hypertension Current Visit: No Status: Chronic Code(s): I10 - ESSENTIAL (PRIMARY) HYPERTENSION <SHAVON PAK - Last Filed: 07/01/24 20:58> History of Present Illness - Chief Complaint History of Present Illness: is a 69 year old male. - Physical Exam Vital Signs: Vital Signs - 24 hr Temp Pulse Resp BP BP Pulse Ox 07/01/24 20:00 97.0 F 18 148/70 94 L 07/01/24 16:00 97.1 F 58 L 18 175/77 96 07/01/24 12:00 97.1 F 57 L 18 129/60 96 07/01/24 09:15 97.6 F 64 18 191/93 95 07/01/24 08:00 58 L 13 123/91 97 07/01/24 07:59 73 14 117/95 97 07/01/24 07:30 75 16 166/82 96 07/01/24 07:28 65 14 174/149 98 07/01/24 07:10 96 07/01/24 07:01 55 L 14 163/87 95 07/01/24 06:30 62 14 159/117 95 07/01/24 06:00 60 14 165/105 97 07/01/24 05:43 65 16 178/88 96 07/01/24 05:00 64 15 179/106 97 07/01/24 04:30 65 15 177/84 98 07/01/24 04:11 96 07/01/24 04:00 63 17 185/144 96 07/01/24 03:03 98.4 F 70 15 184/126 98 Results - Labs Lab/Micro Results: Lab Results-Last 24 Hours 07/01/24 07/01/24 07/01/24 Range/Units 04:17 04:17 04:17 WBC 8.4 (4.23-9.07) x10^3/uL RBC 5.16 (4.63-6.08) x10^6/uL Hgb 15.3 (13.7-17.5) g/dL Hct 45.9 (40.1-51.0) % MCV 89.0 (79.0-92.2) fL MCH 29.7 (25.7-32.2) pg MCHC 33.3 (32.3-36.5) g/dL RDW 13.1 (11.6-14.4) % Plt Count 270 (163-337) x10^3/uL MPV 10.2 (9.4-12.4) fL Gran % 49.3 (34.0-67.9) % Immature Gran % (Auto) 0.4 (0.001-0.429) % Nucleat RBC Rel Count 0.0 (0.00-0.2) % Eos # (Auto) 0.67 H (0.04-0.54) x10^3/uL Immature Gran # (Auto) 0.03 (0.001-0.031) x10^3u/L Absolute Lymphs (auto) 2.66 (1.32-3.57) x10^3/uL Absolute Monos (auto) 0.82 (0.30-0.82) x10^3/uL Absolute Nucleated RBC 0.00 (0.00-0.012) x10^3u/L Lymphocytes % 31.8 (21.8-53.1) % Monocytes % 9.8 (5.3-12.2) % Eosinophils % 8.0 H (0.8-7.0) % Basophils % 0.7 (0.2-1.2) % Absolute Granulocytes 4.12 (1.78-5.38) x10^3/uL Basophils # 0.06 (0.01-0.08) x10^3/uL D-Dimer 1.95 H* (0.0-0.50) mg/L Sodium 140 (135-145) mmol/L Potassium 3.9 (3.5-5.1) mmol/L Chloride 100 (98-107) mmol/L Carbon Dioxide 29 (22-30) mmol/L Anion Gap 14.6 (5-15) MEQ/L BUN 17 (9-20) mg/dL Creatinine 0.86 (0.66-1.25) mg/dL Estimated GFR 94.3 ML/MIN Glucose 138 H (74-106) mg/dL POC Glucometer (74 to 106) mg/dL Calcium 10.4 H (8.4-10.2) mg/dL Total Bilirubin 0.60 (0.2-1.3) mg/dL AST 51 (17-59) U/L ALT 29 (0-50) U/L Alkaline Phosphatase 105 (38-126) U/L Troponin I (0.000-0.033) ng/mL NT-Pro-B Natriuret Pep (<300) pg/mL Serum Total Protein 6.7 (6.3-8.2) g/dL Albumin 4.2 (3.5-5.0) g/dL TSH 3rd Generation (0.470-4.680) mIU/L Influenza Type A Ag (NEGATIVE) Influenza Type B Ag (NEGATIVE) RSV (PCR) (NEGATIVE) SARS-CoV-2 (PCR) (NEGATIVE) 07/01/24 07/01/24 07/01/24 Range/Units 04:17 04:17 07:18 WBC (4.23-9.07) x10^3/uL RBC (4.63-6.08) x10^6/uL Hgb (13.7-17.5) g/dL Hct (40.1-51.0) % MCV (79.0-92.2) fL MCH (25.7-32.2) pg MCHC (32.3-36.5) g/dL RDW (11.6-14.4) % Plt Count (163-337) x10^3/uL MPV (9.4-12.4) fL Gran % (34.0-67.9) % Immature Gran % (Auto) (0.001-0.429) % Nucleat RBC Rel Count (0.00-0.2) % Eos # (Auto) (0.04-0.54) x10^3/uL Immature Gran # (Auto) (0.001-0.031) x10^3u/L Absolute Lymphs (auto) (1.32-3.57) x10^3/uL Absolute Monos (auto) (0.30-0.82) x10^3/uL Absolute Nucleated RBC (0.00-0.012) x10^3u/L Lymphocytes % (21.8-53.1) % Monocytes % (5.3-12.2) % Eosinophils % (0.8-7.0) % Basophils % (0.2-1.2) % Absolute Granulocytes (1.78-5.38) x10^3/uL Basophils # (0.01-0.08) x10^3/uL D-Dimer (0.0-0.50) mg/L Sodium (135-145) mmol/L Potassium (3.5-5.1) mmol/L Chloride (98-107) mmol/L Carbon Dioxide (22-30) mmol/L Anion Gap (5-15) MEQ/L BUN (9-20) mg/dL Creatinine (0.66-1.25) mg/dL Estimated GFR ML/MIN Glucose (74-106) mg/dL POC Glucometer (74 to 106) mg/dL Calcium (8.4-10.2) mg/dL Total Bilirubin (0.2-1.3) mg/dL AST (17-59) U/L ALT (0-50) U/L Alkaline Phosphatase (38-126) U/L Troponin I < 0.012 < 0.012 (0.000-0.033) ng/mL NT-Pro-B Natriuret Pep 67.8 (<300) pg/mL Serum Total Protein (6.3-8.2) g/dL Albumin (3.5-5.0) g/dL TSH 3rd Generation 1.810 (0.470-4.680) mIU/L Influenza Type A Ag (NEGATIVE) Influenza Type B Ag (NEGATIVE) RSV (PCR) (NEGATIVE) SARS-CoV-2 (PCR) (NEGATIVE) 07/01/24 07/01/24 07/01/24 Range/Units 07:35 11:25 12:25 WBC (4.23-9.07) x10^3/uL RBC (4.63-6.08) x10^6/uL Hgb (13.7-17.5) g/dL Hct (40.1-51.0) % MCV (79.0-92.2) fL MCH (25.7-32.2) pg MCHC (32.3-36.5) g/dL RDW (11.6-14.4) % Plt Count (163-337) x10^3/uL MPV (9.4-12.4) fL Gran % (34.0-67.9) % Immature Gran % (Auto) (0.001-0.429) % Nucleat RBC Rel Count (0.00-0.2) % Eos # (Auto) (0.04-0.54) x10^3/uL Immature Gran # (Auto) (0.001-0.031) x10^3u/L Absolute Lymphs (auto) (1.32-3.57) x10^3/uL Absolute Monos (auto) (0.30-0.82) x10^3/uL Absolute Nucleated RBC (0.00-0.012) x10^3u/L Lymphocytes % (21.8-53.1) % Monocytes % (5.3-12.2) % Eosinophils % (0.8-7.0) % Basophils % (0.2-1.2) % Absolute Granulocytes (1.78-5.38) x10^3/uL Basophils # (0.01-0.08) x10^3/uL D-Dimer (0.0-0.50) mg/L Sodium (135-145) mmol/L Potassium (3.5-5.1) mmol/L Chloride (98-107) mmol/L Carbon Dioxide (22-30) mmol/L Anion Gap (5-15) MEQ/L BUN (9-20) mg/dL Creatinine (0.66-1.25) mg/dL Estimated GFR ML/MIN Glucose (74-106) mg/dL POC Glucometer 173 H (74 to 106) mg/dL Calcium (8.4-10.2) mg/dL Total Bilirubin (0.2-1.3) mg/dL AST (17-59) U/L ALT (0-50) U/L Alkaline Phosphatase (38-126) U/L Troponin I < 0.012 (0.000-0.033) ng/mL NT-Pro-B Natriuret Pep (<300) pg/mL Serum Total Protein (6.3-8.2) g/dL Albumin (3.5-5.0) g/dL TSH 3rd Generation (0.470-4.680) mIU/L Influenza Type A Ag NEGATIVE (NEGATIVE) Influenza Type B Ag NEGATIVE (NEGATIVE) RSV (PCR) NEGATIVE (NEGATIVE) SARS-CoV-2 (PCR) NEGATIVE (NEGATIVE) 07/01/24 Range/Units 16:14 WBC (4.23-9.07) x10^3/uL RBC (4.63-6.08) x10^6/uL Hgb (13.7-17.5) g/dL Hct (40.1-51.0) % MCV (79.0-92.2) fL MCH (25.7-32.2) pg MCHC (32.3-36.5) g/dL RDW (11.6-14.4) % Plt Count (163-337) x10^3/uL MPV (9.4-12.4) fL Gran % (34.0-67.9) % Immature Gran % (Auto) (0.001-0.429) % Nucleat RBC Rel Count (0.00-0.2) % Eos # (Auto) (0.04-0.54) x10^3/uL Immature Gran # (Auto) (0.001-0.031) x10^3u/L Absolute Lymphs (auto) (1.32-3.57) x10^3/uL Absolute Monos (auto) (0.30-0.82) x10^3/uL Absolute Nucleated RBC (0.00-0.012) x10^3u/L Lymphocytes % (21.8-53.1) % Monocytes % (5.3-12.2) % Eosinophils % (0.8-7.0) % Basophils % (0.2-1.2) % Absolute Granulocytes (1.78-5.38) x10^3/uL Basophils # (0.01-0.08) x10^3/uL D-Dimer (0.0-0.50) mg/L Sodium (135-145) mmol/L Potassium (3.5-5.1) mmol/L Chloride (98-107) mmol/L Carbon Dioxide (22-30) mmol/L Anion Gap (5-15) MEQ/L BUN (9-20) mg/dL Creatinine (0.66-1.25) mg/dL Estimated GFR ML/MIN Glucose (74-106) mg/dL POC Glucometer 194 H (74 to 106) mg/dL Calcium (8.4-10.2) mg/dL Total Bilirubin (0.2-1.3) mg/dL AST (17-59) U/L ALT (0-50) U/L Alkaline Phosphatase (38-126) U/L Troponin I (0.000-0.033) ng/mL NT-Pro-B Natriuret Pep (<300) pg/mL Serum Total Protein (6.3-8.2) g/dL Albumin (3.5-5.0) g/dL TSH 3rd Generation (0.470-4.680) mIU/L Influenza Type A Ag (NEGATIVE) Influenza Type B Ag (NEGATIVE) RSV (PCR) (NEGATIVE) SARS-CoV-2 (PCR) (NEGATIVE) Accuchecks Date 07/01/24 Date 07/01/24 - Radiology Impressions Radiology Exams & Impressions: Radiology Procedures Category Date Time Status CHEST WITH CONTRAST [CT] Stat Exams 07/01/24 05:10 Completed - Other Procedures and Tests Respiratory Therapy 07/01/24 11:47 BiPap/CPAP ROUTINE 07/01/24 11:49 EKG REPEAT IN AM BERNARD Encounter - BERNARD Encounter Attestation BERNARD Encounter Attestation: "AGUILA Jo andhavediscussed pertinent aspects of their care with Nathan Tilley agree with the history, physical exam (any modifications based on my personal exam will be noted below), assessment, and plan as outlined in original note. Please see immediately below for my summary of findings and additional assessment and plan along with any meaningful corrections/explanations to the Subjective/Objective portions of the BERNARD note will be noted." My portion of the encounter took place via telemedicine. -Patient with multiple risk factors, h/o angina, CAD (no intervention but reports multiple prior caths showing disease not amenable to intervention), presenting with chest pain that started while he was lifting weights. EKG and trops have been negative. Likely his known stable angina without evidence for NSTEMI or STEMI. Anticipate discharge tomorrow with outpatient follow up with his document design specialist.
[2024-07-01] MEDS ORDERED: DUONEB 0.5-3 MG/3 ml Neb IH PRN (11:49)
[2024-07-01] MEDS ORDERED: Zofran 4 MG/2 ML VIAL IV PRN (11:49)
[2024-07-01] MEDS ORDERED: MORPHINE SULFATE 2 MG INJ IV PRN (11:51)
[2024-07-01] MEDS: TYLENOL 325 MG PO PRN (12:29)
[2024-07-01] MEDS: Singulair 10 MG PO SCH (12:29)
[2024-07-01] MEDS: THERAGRAN MULTIVITAMIN PO SCH (12:29)
[2024-07-01] MEDS: ECOTRIN 81 MG PO SCH (12:29)
[2024-07-01] MEDS: Zestril 20 MG PO SCH (13:16)
[2024-07-01] MEDS: hydroDIURIL 25 MG PO SCH (13:16)
[2024-07-01] MEDS: NORCO 5/325 MG PO PRN (15:45)
[2024-07-01] MEDS: Zetia 10 MG PO SCH (21:51)
[2024-07-01] MEDS: HUMALOG SQ PRN (21:51)
[2024-07-02 05:21] LABS: Hematocrit 43.2 % (40.1-51.0); Hemoglobin 14.2 g/dL (13.7-17.5); Mean Cell Volume 89.6 fL (79.0-92.2); Mean Corpuscular Hemoglobin 29.5 pg (25.7-32.2); Mean Corpuscular Hgb Concent. 32.9 g/dL (32.3-36.5); Mean Platelet Volume 9.9 fL (9.4-12.4); Platelet Count 242 x10^3/uL (163-337); Red Blood Count 4.82 x10^6/uL (4.63-6.08); Red Cell Distribution Width 13.2 % (11.6-14.4); White Blood Count 6.8 x10^3/uL (4.23-9.07)
--- NOTE | 2024-07-02 05:24 | PCM.DS ---
Discharge Summary Date of Admission: 07/01/24 09:02 Date of Discharge: 07/02/24 Admitting Physician: SHAVON PAK MD Primary Care Provider: LINDY ENAMORADO TIMMY Allergies Allergies nifedipine [From Procardia] Allergy (Verified 07/01/24 03:17) Swelling of Feet Grhrodw-KGW-PsO Reductase Inhibitor Allergy (Verified 07/01/24 09:18) [facility] Summary - Hospital Course Hospital Course: is a 69 year old male with a pmhx of DMII, COPD (RA at baseline), Obesity, HLD, CA, PE (not on anticoagulation), ALEXANDER (CPAP), Gerd, and anxiety who presented to ED 07/01/24 with complaints of chest pain. Onset was 06/30/24 around 11 p.m. Patient states that he was doing arm exercises with dumbells when he began to experience left-sided constant chest pain. He describes that pain as sharp and tight with associated shortness of breath. No aggravating/relieving factors. He reports home blood pressure was 239/191. He is somewhat of a poor historian but reports that he has had 4-5 cardiac caths - most recent over 20 years ago. No stent placement. He reports h/o CA that showed up on an EKG as age indeterminate. He also states he has angina. He follows with Dr. Bond (cardiology). Upon arrival to ED patient was hypertensive with BP initially at 184/126. EKG NS with RBBB. DDimer elevated and CT chest performed and demonstrates no signs of pulmonary embolism. No gross pulmonary abnormality was depicted. The right thyroid lobe has several small hypodense nodules, further US assessment is advised. Troponins x 3 WNL. CMP/CBC unremarkable. Respiratory panel negative. Patient given ASA/Nitro/ Lisinopril in ED. BP now stable at 123/91. Admit for chest pain with continued troponins and observation. Chest pain has resolved. EKG and troponins unremarkable for acute findings. Patient advised follow up with cardiology. Will need op follow up for thyroid nodule noted on CT chest. Discharge Note New Diagnosis: Chest pain New Medications: none Follow Up: cardiology - Dr. Bond PCP for thyroid nodule I spent 35 minutes [id number] with the patient on the day of discharge performing discharge exam, discussing hospital stay and discharge instructions with patient and caregivers, preparation of discharge records, prescriptions & referral forms and addressing any questions/concerns the patient had as do cumented above. - Vitals & Intake/Output Vital Signs: Vital Signs Temperature 95.6 F 07/02/24 04:00 Pulse Rate 54 L 07/02/24 04:00 Respiratory Rate 17 07/02/24 04:00 Blood Pressure 163/81 07/02/24 04:00 O2 Sat by Pulse Oximetry 95 07/02/24 04:00 Intake & Output: Intake & Output 06/29/24 06/30/24 07/01/24 07/02/24 11:59 11:59 11:59 11:59 Intake Total 950 Balance 950 Weight 136.5 kg - Lab Result Diagrams: 07/02/24 05:13 07/02/24 05:13 Lab Results-Last 24 Hrs: Lab Results-Last 24 Hours 07/01/24 07/01/24 07/01/24 Range/Units 04:17 07:18 07:35 POC Glucometer (74 to 106) mg/dL Troponin I < 0.012 (0.000-0.033) ng/mL TSH 3rd Generation 1.810 (0.470-4.680) mIU/L Influenza Type A Ag NEGATIVE (NEGATIVE) Influenza Type B Ag NEGATIVE (NEGATIVE) RSV (PCR) NEGATIVE (NEGATIVE) SARS-CoV-2 (PCR) NEGATIVE (NEGATIVE) 07/01/24 07/01/24 07/01/24 Range/Units 11:25 12:25 16:14 POC Glucometer 173 H 194 H (74 to 106) mg/dL Troponin I < 0.012 (0.000-0.033) ng/mL TSH 3rd Generation (0.470-4.680) mIU/L Influenza Type A Ag (NEGATIVE) Influenza Type B Ag (NEGATIVE) RSV (PCR) (NEGATIVE) SARS-CoV-2 (PCR) (NEGATIVE) 07/01/24 Range/Units 21:04 POC Glucometer 204 H (74 to 106) mg/dL Troponin I (0.000-0.033) ng/mL TSH 3rd Generation (0.470-4.680) mIU/L Influenza Type A Ag (NEGATIVE) Influenza Type B Ag (NEGATIVE) RSV (PCR) (NEGATIVE) SARS-CoV-2 (PCR) (NEGATIVE) Micro Results-Entire Visit: Accuchecks Date 07/01/24 Date 07/01/24 - Radiology Exams Ordered Rad Exams-Entire Visit: Radiology Procedures Category Date Time Status CHEST WITH CONTRAST [CT] Stat Exams 07/01/24 05:10 Completed - Procedures and Test Procedures and Tests throughout Hospitalization: Therapy Orders & Screens 07/01/24 11:00 RT Screen per Nursing Assess ONCE Comment: Protocol Order Physician Instructions: Greater than 3 points order RT Admission Screen Reason For Exam: Triggered on Admission Diagnosis: Chest pain Diagnosis: Chest pain Pneumonia: No Home O2: No Asthma: Yes CHF: No Home CPAP/BIPAP: Yes: CPAP Home Nebs/MDI: No Total Points: 9 07/01/24 11:47 BiPap/CPAP ROUTINE Comment: Diagnosis: Chest pain 07/01/24 11:49 EKG REPEAT IN AM Comment: Diagnosis: Chest pain Discharge Exam General Appearance: no apparent distress Neurologic Exam: alert, oriented x 3, cooperative Eye Exam: PERRL Ears, Nose, Throat Exam: normal ENT inspection Neck Exam: normal inspection Respiratory Exam: normal breath sounds, lungs clear Cardiovascular Exam: regular rate/rhythm, normal heart sounds Gastrointestinal/Abdomen Exam: soft, normal bowel sounds Male Genitalia Exam: deferred Rectal Exam: deferred Back Exam: normal inspection Extremity Exam: normal inspection Skin Exam: normal color Final Diagnosis/Problem List - Final Discharge Diagnosis/Problem (1) Chest pain Current Visit: Yes Status: Resolved Assessment & Plan: -EKG reviewed NS with RBBB -Trops x 3 negative -Nitro/Morphine for pain control -BNP reviewed WNL -EKG in a.m. -DDimer elevated -CT chest reviewed with no cardiopulmonary abnormalities - no PE -Follows with Dr. Bond -may need OP evaluation stress test/cath - will set up appt -continue ASA Code(s): R07.9 - CHEST PAIN, UNSPECIFIED (2) HLD (hyperlipidemia) Current Visit: Yes Status: Acute Assessment & Plan: -Continue zetia - patient with allergies to statin Code(s): E78.5 - HYPERLIPIDEMIA, UNSPECIFIED (3) COPD (chronic obstructive pulmonary disease) Current Visit: Yes Status: Acute Assessment & Plan: -CT scan as stated above - On RA -continue home meds - does not appear to be in exacerbation (4) History of pulmonary embolism Current Visit: Yes Status: Acute Assessment & Plan: -Patient states he is no longer on anticoagulation Code(s): Z86.711 - PERSONAL HISTORY OF PULMONARY EMBOLISM (5) Anxiety and depression Current Visit: Yes Status: Acute Assessment & Plan: -Noted, does not take home meds Code(s): F41.9 - ANXIETY DISORDER, UNSPECIFIED; F32.A - DEPRESSION, UNSPECIFIED (6) Thyroid nodule Current Visit: Yes Status: Acute Assessment & Plan: -As seen on CT imaging - will refer to PCP for evaluation as OP -TSH WNL Code(s): E04.1 - NONTOXIC SINGLE THYROID NODULE (7) Coronary artery disease Current Visit: No Status: Acute Qualifiers: Coronary Disease-Associated Artery/Lesion type: unspecified vessel or lesion type [place] vs. transplanted heart: [place] heart Associated angina: with stable angina Qualified Code(s): I25.119 - Atherosclerotic heart disease of [place] coronary artery with unspecified angina pectoris Assessment & Plan: -H/o 4-5 cardiac caths - no stent placement -Follows with Dr. Bond Code(s): I25.10 - ATHSCL HEART DISEASE OF [place] CORONARY ARTERY W/O ANG PCTRS (8) Morbid obesity with BMI of 50.0-59.9, adult Current Visit: No Status: Acute Assessment & Plan: -Advised diet/exercise - Follow ADA diet Code(s): Z68.43 - [place] INDEX [BMI] 50.0-59.9, ADULT (9) Obstructive sleep apnea Current Visit: No Status: Acute Assessment & Plan: -CPAP - RT Code(s): G47.33 - OBSTRUCTIVE SLEEP APNEA (ADULT) (PEDIATRIC) (10) Type 2 diabetes mellitus Current Visit: No Status: Acute Assessment & Plan: -ADA diet -SSI -A1c VTE: lovenox PPI: protonix Dispo: tomorrow pending evaluation Code(s): R07.9 - CHEST PAIN, UNSPECIFIED (2) HLD (hyperlipidemia) Current Visit: Yes Status: Chronic Code(s): E78.5 - HYPERLIPIDEMIA, UNSPECIFIED (3) COPD (chronic obstructive pulmonary disease) Current Visit: Yes Status: Chronic (4) History of pulmonary embolism Current Visit: Yes Status: Chronic Code(s): Z86.711 - PERSONAL HISTORY OF PULMONARY EMBOLISM (5) Anxiety and depression Current Visit: Yes Status: Chronic Code(s): F41.9 - ANXIETY DISORDER, UNSPECIFIED; F32.A - DEPRESSION, UNSPECIFIED (6) Thyroid nodule Current Visit: Yes Status: Acute Code(s): E04.1 - NONTOXIC SINGLE THYROID NODULE (7) Coronary artery disease Current Visit: No Status: Chronic Code(s): I25.10 - ATHSCL HEART DISEASE OF [place] CORONARY ARTERY W/O ANG PCTRS (8) Morbid obesity with BMI of 50.0-59.9, adult Current Visit: No Status: Chronic Code(s): Z68.43 - [place] INDEX [BMI] 50.0-59.9, ADULT (9) Obstructive sleep apnea Current Visit: No Status: Chronic Code(s): G47.33 - OBSTRUCTIVE SLEEP APNEA (ADULT) (PEDIATRIC) (10) Type 2 diabetes mellitus Current Visit: No Status: Chronic (11) Essential hypertension Current Visit: No Status: Chronic Code(s): I10 - ESSENTIAL (PRIMARY) HYPERTENSION - Discharge Discharge Date: 07/02/24 Disposition: Home, Self-Care Condition: Stable Prescriptions: Continue Glimepiride 2 mg [Amaryl 2 MG] 4 mg PO QAM Montelukast Sodium 10 mg [Singulair 10 MG] 10 mg PO DAILY Ezetimibe 10 mg [Zetia 10 MG] 10 mg PO HS Lisinopril/Hydrochlorothiazide [Lisinopril-Hctz 20-12.5 mg Tab] 1 each PO DAILY Omeprazole 20 mg PO DAILY Multivitamin 1 each PO DAILY Aspirin EC 81 mg [Ecotrin 81 mg] 81 mg PO DAILY Semaglutide [Ozempic] 0.5 mg SQ UD Additional Instructions: Will need follow up with PCP for thyroid nodule noted on Chest CT Follow up with: LINDY ENAMORADO MD [Primary Care Provider] - 07/09/24 2:15 pm NARCISO BOND [CONSULTING PHYSICIAN] - (Early next week)
[2024-07-02 05:44] LABS: ALBUMIN 3.8 g/dL (3.5-5.0); BILIRUBIN,TOTAL 0.5 mg/dL (0.2-1.3); Calcium 9.9 mg/dL (8.4-10.2); Creatinine 1 0.96 mg/dL (0.66-1.25); EST GLOMERULAR FILTRATION RATE 86.1 ML/MIN; Potassium 4.1 mmol/L (3.5-5.1); Total Protein 6.3 g/dL (6.3-8.2)
[2024-07-02 07:50] VITALS: BP 138/72; PULSE 56; RESP 13; TEMP 96.6; O2SAT 99
[2024-07-02] MEDS ORDERED: NON-FORMULARY ITEM (Lisinopril/Hydrochlorothiazide [Lisinopril-Hctz 20-12.5 Mg Tab] 1 EACH PO SCH (10:00)
[2024-07-02] MEDS ORDERED: NON-FORMULARY ITEM (Multivitamin [Multivitamin] 1 EACH Tablet) PO SCH (10:00)
[2024-07-02] MEDS ORDERED: NON-FORMULARY ITEM (Omeprazole [Omeprazole] 20 MG Capsule.Dr) PO SCH (10:00)
[2024-07-02] MEDS: ENOXAPARIN SODIUM SQ SCH (10:34)
[2024-07-02] MEDS: Protonix 40MG Tablet PO SCH (10:35)
== END 2024-07-02 13:04 | disposition home or self-care (01) ==
LOC: ED 02:55 → MED SURG 09:02
PROVIDERS: ADMIT Internal Medicine; ATTEND Internal Medicine
DX: R07.9 Chest pain, unspecified (principal); I25.2 Old myocardial infarction; I10 Essential (primary) hypertension; J44.9 Chronic obstructive pulmonary disease, unspecified; E78.5 Hyperlipidemia, unspecified; Z86.711 Personal history of pulmonary embolism; F41.9 Anxiety disorder, unspecified; E04.1 Nontoxic single thyroid nodule; I25.10 Atherosclerotic heart disease of native coronary artery without angina pectoris; Z68.43 Body mass index [BMI] 50.0-59.9, adult; G47.33 Obstructive sleep apnea (adult) (pediatric); E11.9 Type 2 diabetes mellitus without complications; Z79.899 Other long term (current) drug therapy
CPT/HCPCS: 0241U; 36415; 71260; 80053; 82947; 83880; 84443; 84484; 85025; 85027; 85379; 93005; 93041; 93268; 94660; 94760; 99284; G0378; 99285; J1650; J1817; A9270-GY